=== PATIENT | female | born 1935 | race Hispanic/Latino ===

== ENCOUNTER 2016-12-09 15:31 | Inpatient (IN) | payer MEDICARE, OTHER ==
[2016-12-09 15:32] VITALS: BMI 22.3
[2016-12-09] MEDS ORDERED: Sodium Chloride 0.9% 1,000 ML IV STA (16:28)
--- NOTE | 2016-12-09 16:34 | ED PDOC ---
HPI: General Adult Time Seen by Provider: 12/09/16 15:35 Chief Complaint (Nursing): Abdominal Pain Chief Complaint (Provider): Cough/Congestion History Per: Family (Patient's daughter) History/Exam Limitations: no limitations Onset/Duration Of Symptoms: Days (x1) Current Symptoms Are (Timing): Still Present Additional Complaint(s): Sarah Hussein is a 81 year old female with a history of CAD, DM, COPD, CVA, anemia, bipolar disorder, and dementia and is accompanied by her daughter that presents to the ED with a chief complaint of cough, congestion, and abdominal pain that she has been experiencing for the past day. According to her daughter , the patient has been more lethargic today than usual. Patient also comes in with indwelling ricketts, urine is dark and cloudy. pt is awake. Of Note: Patient is DNR. Past Medical History Reviewed: Historical Data, Nursing Documentation, Vital Signs Vital Signs: Last Vital Signs Temp 98.8 F 12/09/16 18:20 Pulse 126 H 12/09/16 18:24 Resp 26 H 12/09/16 17:24 BP 91/53 L 12/09/16 18:24 Pulse Ox 95 12/09/16 18:24 - Medical History PMH: Anemia, Back Problems (Chronic low back pain), Bipolar Disorder, Bronchitis , CAD, COPD, CVA, Depression (See subjective), Diabetes (type II), Fractures ( See HPI right intertrochanteric femoral fracture), Gastritis, HTN, Hypercholesterolemia, Hyperthyroidism, Pneumonia (HAP), Rheumatoid Arthritis Denies: Arthritis, CHF, Hepatitis, HIV, Hypothyroidism, Chronic Kidney Disease, Seizures, Sexually Transmitted Disease - Surgical History Surgical History: Appendectomy, CABG, Coronary Stent, Tonsillectomy - Family History Family History: States: Unknown Family Hx - Social History Ex-Smoker (has not smoked in the last 12 months): Yes Alcohol: None Drugs: Denies - Home Medications Home Medications: Ambulatory Orders Medication Instructions Recorded Lisinopril [Zestril] 2.5 mg PO DAILY #0 tab 05/05/16 Multivitamin [Multi-Vitamin Daily] 1 tab PO DAILY #0 tablet 05/05/16 Pantoprazole [Protonix EC Tab] 40 mg PO DAILY #0 ect 05/05/16 SITagliptin [Januvia] 100 mg PO DAILY #0 tab 05/05/16 Tolterodine [Detrol] 1 mg PO BID #0 tab 05/05/16 Atorvastatin [Lipitor] 20 mg PO HS 12/09/16 Ferrous Sulfate [Feosol] 325 mg PO BID 12/09/16 Insulin Detemir [Levemir] 2 units SC QAM 12/09/16 Sucralfate [Carafate Oral Susp] 10 ml PO QID 12/09/16 - Allergies Allergies/Adverse Reactions: Allergies Allergy/AdvReac Type Severity Reaction Status Date / Time No Known Allergies Allergy Verified 04/27/16 16:30 Review of Systems Constitutional: Positive for: Other (Patient is lethargic) ENT: Positive for: Nose Congestion Respiratory: Positive for: Cough Gastrointestinal: Positive for: Abdominal Pain Genitourinary Female: Positive for: Other (urine is dark and cloudy) Physical Exam - Reviewed Nursing Documentation Reviewed: Yes Vital Signs Reviewed: Yes - Physical Exam Appears: Positive for: Non-toxic, In Acute Distress (Patient has dementia, and is currently incoherent. Patient appears thin.) Head Exam: Positive for: ATRAUMATIC, NORMOCEPHALIC Skin: Positive for: Normal Color, Warm Cardiovascular/Chest: Positive for: Regular Rate, Rhythm. Negative for: Murmur Respiratory: Positive for: Crackles (r side). Negative for: Wheezing Gastrointestinal/Abdominal: Positive for: Soft. Negative for: Normal Exam ( umbilical hernia, it is reducable.), Tenderness Extremity: Positive for: Other (bilateral sacral ulcers stage 1) Neurologic/Psych: Positive for: Alert, Oriented (Patient is oriented x1). Negative for: Motor/Sensory Deficits - Laboratory Results Result Diagrams: 12/09/16 16:35 12/09/16 16:35 - ECG O2 Sat by Pulse Oximetry: 93 (RA) Pulse Ox Interpretation: Normal - Radiology X-Ray: Read By Radiologist X-Ray Interpretation: Infiltrates - Critical Care Total Time (In Min): 30 Medical Decision Making Medical Decision Making: Impression: fever, possible pneumonia vs uti Possible Sepsis Plan: * VBG Shock Panel * CMP * CBC * EKG * Urinalysis * Urine Culture * Urine C&S * Flu Swab * Chest X-Ray * Tylenol 650 mg PO * Sodium Chloride 1000 mL at 150 mLs/hr * Ricketts Catheter * Nebulizer Treatment * Reevaluation EKG shows sinus tachycardia at 125, no ST elevation. 1700 Chest x-ray reviewed, appears to be right lower lobe pneumonia. Ordered antibiotics and ivf. Dr. Bernstein patients pmd is at bedside. 1710 Code sepsis called. 1729 Labs reviewed and indicate lactate levels of 4.4 pts family (daughter) at bedside, explained ot her the medical condition of her mother and plan. she is agreeable. 2 units prbc also ordered DX fever, sepsis, pneumonia icu attending Dr Hardy aware ID aware Dr Jurado pulmonary aware Scribe Attestation: Documented by Omaira Mckay and Karla Stern, acting as a scribe for Merlin Puente MD. Provider Scribe Attestation: All medical record entries made by the Scribe were at my direction and personally dictated by me. I have reviewed the chart and agree that the record accurately reflects my personal performance of the history, physical exam, medical decision making, and the department course for this patient. I have also personally directed, reviewed, and agree with the discharge instructions and disposition. Disposition - Clinical Impression Clinical Impression: Sepsis, Pneumonia - Patient ED Disposition Is Patient to be Admitted: Yes Counseled Patient/Family Regarding: Studies Performed, Diagnosis - Disposition Disposition Time: 17:00 Condition: GUARDED
[2016-12-09 16:47] LABS: BASO # 0.1 K/uL (0.0-0.2); BASO % 0.2 % (0.0-2.0); HEMOGLOBIN 7.6 g/dL (12.0-16.0); LYMPH # 0.3 K/uL (1.0-4.3); LYMPH % 1.1 % (20.0-40.0); MEAN CELL VOLUME 82.2 fl (81.0-99.0); MEAN CORPUSCULAR HEMOGLOBIN 25.5 pg (27.0-31.0); MEAN CORPUSCULAR HGB CONC 31.1 g/dL (33.0-37.0); MEAN PLATELET VOLUME 7.6 fl (7.2-11.7); MONO # 0.9 K/uL (0.0-0.8); MONO % 3.1 % (0.0-10.0); NEUT # 28.3 K/uL (1.8-7.0); NEUT % 95.6 % (50.0-75.0); PLATELET COUNT 438 K/uL (130-400); RBC 2.97 Mil/uL (3.80-5.20); RED CELL DISTRIBUTION WIDTH 16.3 % (11.5-14.5); WHITE BLOOD COUNT 29.7 K/uL (4.8-10.8)
[2016-12-09] MEDS ORDERED: Albuterol 0.083% Inhal Sol (2.5 mg/3 mL) UD INH ONE ×3 (16:51→17:35)
[2016-12-09] MEDS ORDERED: Albuterol 0.083% Inhal Sol (2.5 mg/3 mL) UD ONE (16:52)
[2016-12-09] MEDS ORDERED: Azithromycin 500 MG in Sodium Chloride 0.9% 250 ML IVPB ONE (16:55)
[2016-12-09 16:57] LABS: ALB/GLOB RATIO 0.9 (1.0-2.1); ALT/SGPT 26 U/L (9-52); AST/SGOT 19 U/L (14-36); BLOOD UREA NITROGEN 36 mg/dl (7-17); CALCIUM 8.7 mg/dL (8.4-10.2); GFR AFRICAN-AMERICAN > 60; GFR NON-AFRICAN AMERICAN > 60
[2016-12-09] MEDS ORDERED: cefTRIAXone (Rocephin) 1 gm Inj ONE (17:03)
--- NOTE | 2016-12-09 17:20 | RAD ---
HISTORY: Cough. COMPARISON: 04/28/2016 FINDINGS: LUNGS: Right lower lobe infiltrate accentuated by rotation, portable technique. PLEURA: No significant pleural effusion identified, no pneumothorax apparent. CARDIOVASCULAR: No radiographic findings to suggest acute or significant cardiovascular disease. OSSEOUS STRUCTURES: No significant abnormalities. VISUALIZED UPPER ABDOMEN: Normal. OTHER FINDINGS: None. IMPRESSION: Right lower lobe infiltrate suspicious for pneumonia.
[2016-12-09 17:28] LABS: VENOUS BLOOD GAS BASE EXCESS 3.2 mmol/L (0.0-2.0); VENOUS BLOOD GAS PCO2 37 mmHg (40-60); VENOUS BLOOD GAS PO2 23 mm/Hg (30-55); VENOUS BLOOD PH 7.47 (7.32-7.43)
[2016-12-09] MEDS ORDERED: Albuterol-Ipratrop 3 mg / 0.5 (3 ml) UD ONE (17:36)
--- NOTE | 2016-12-09 17:42 | CP.PCM.HP ---
History of Present Illness - History of Present Illness History of Present Illness: 81 year old gentlewoman with a long hx of copd, requiring 2L/min of nasal oxygen during sleep and sometimes daytimes, was in her usual state of health 2 days ago - bedbound, non-ambulatory, and with mild dementia. When the nurse came to her home to do wound care (see below) he noted fever, dyspnea and cough prductive of greenish sputum and mild-moderate confustion. She was transported to the ER via ambulance where it was noted that her temp was 102 deg F, pulse 120, BP 70/40, and oxygen saturation 92% on 2L/min oxygen. A chest xray revealed RML pneumonia. Other Significant Past Hx: COPD - Dr. Aline Cronin is pulmonolgist S/P CAD, s/p stenting, -- Dr. Garfield Mosquera is solar systems designer. 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 Medications: Lisinopril 2.5 mg daily FeSO4 325mg i bid (just started 12/08/16) Pantoprazole 40mg i qd Atorvastatin 20mg i qd Januvia 100mg i qd Tolterodine 1mg i bid One a Day Proactive 65 + vitamin (contains 500mg calcium & 1200 units Vit D) one daily Allergies: None known Social: Lives with 1 son, who provides personal care. Daughter and other son also share in care. of lung cancer within past 6 mos. Advance Directive: Written -- Do not intubate and Do not resuscitate. Her children are in agreement with this, but want everything done short of this. ROS - Denies headache, chest pain, abdominal pain. No hx of bleeding or melena. Present on Admission - Present on Admission Any Indicators Present on Admission: Yes History of Uncontrolled Diabetes: Yes Urinary Catheter: Yes Decubitus Ulcer Present: Yes Decubitus Ulcer Location: both heels and posterior right lower leg Decubitus Ulcer Stage: Unstageable Review of Systems - Review of Systems Systems not reviewed;Unavailable: Unstable Vital Signs, Respiratory Distress, Altered Mental Status Review of Systems: OTHERWISE SEE HPI Past Patient History - Infectious Disease Hx of Infectious Diseases: None - Past Medical History & Family History Past Medical History?: Yes - Past Social History Alcohol: None Drugs: Denies - CARDIAC Hx Cardiac Disorders: Yes (S/P STENTING CORONARIES. S/P MV REPLACEMENT) Hx Congestive Heart Failure: No Hx Hypercholesterolemia: Yes Hx Hypertension: Yes Hx Peripheral Vascular Disease: Yes - PULMONARY Hx Bronchitis: Yes Hx Chronic Obstructive Pulmonary Disease (COPD): Yes (SEE HPI) Hx Pneumonia: Yes (HAP) - NEUROLOGICAL HX Cerebrovascular Accident: Yes (CEREBELLAR) Hx Seizures: No - HEENT Hx HEENT Problems: No - RENAL Hx Chronic Kidney Disease: No - ENDOCRINE/METABOLIC Hx Diabetes Mellitus Type 2: Yes Hx Hyperthyroidism: Yes Hx Hypothyroidism: No - HEMATOLOGICAL/ONCOLOGICAL Hx Anemia: Yes Hx Human Immunodeficiency Virus (HIV): No - INTEGUMENTARY Hx Dermatological Problems: Yes (SEE HPI) - MUSCULOSKELETAL/RHEUMATOLOGICAL Hx Arthritis: No Hx Fractures: Yes (See HPI right intertrochanteric femoral fracture) Hx Osteoporosis: Yes Hx Rheumatoid Arthritis: Yes Hx Unsteady Gait: Yes - GASTROINTESTINAL Hx Gastritis: Yes (HEMORRHAGE DUE TO NSAIDS) - GENITOURINARY/GYNECOLOGICAL Hx Sexually Transmitted Disorders: No Other/Comment: URINARY RETENTION - NEEDS GARCIA - PSYCHIATRIC Hx Depression: Yes (See subjective) - SURGICAL HISTORY Hx Appendectomy: Yes Hx Coronary Artery Bypass Graft: Yes Hx Coronary Stent: Yes Hx Orthopedic Surgery: Yes (THR RIGHT HIP 2016) Hx Tonsillectomy: Yes - ANESTHESIA Hx Anesthesia: Yes Hx Anesthesia Reactions: No Hx Malignant Hyperthermia: No Meds Allergies/Adverse Reactions: Allergies Allergy/AdvReac Type Severity Reaction Status Date / Time No Known Allergies Allergy Verified 04/27/16 16:30 Physical Exam - Constitutional Appears: Toxic, In Acute Distress, Confused, Cachectic, Chronically Ill - Head Exam Head Exam: NORMAL INSPECTION - Eye Exam Eye Exam: Normal appearance - ENT Exam ENT Exam: Mucous Membranes Moist - Neck Exam Neck exam: Positive for: Normal Inspection - Respiratory Exam Additional comments: Markedly decreased breath sounds right base and right middle lung. Inspiratory ronchi right base. Inspiratory crackles left base. Upper hdz clear but with diminished breath sounds. - Cardiovascular Exam Cardiovascular Exam: REGULAR RHYTHM, +S1, +S2 Additional comments: Unable to appreciate murmur. Well healed sternotomy scar. - GI/Abdominal Exam GI & Abdominal Exam: Normal Bowel Sounds, Soft - Rectal Exam Rectal Exam: Deferred - Exam Additional comments: Garcia in place. - Extremities Exam Additional comments: WHSS right hip but very painful on motion. No edema, weak pedal pulses. SEE SKIN - Back Exam Additional comments: Spinal deformities. - Neurological Exam Neurological exam: Altered Additional comments: Awake, mildly confused, able to follow simple commands. Non-ambulatory. - Psychiatric Exam Psychiatric exam: Depressed - Skin Additional comments: Extensive necrosis of right and left heals and linear necrosis of right posterior lower leg. Erythematous patches lumbosacral areas. - Additional Findings Additional findings: BREASTS - NO MASSES. Results - Vital Signs Recent Vital Signs: Last Vital Signs Temp 98.8 F 12/09/16 17:32 Pulse 123 H 12/09/16 17:24 Resp 26 H 12/09/16 17:24 BP 81/32 L 12/09/16 17:24 Pulse Ox 89 L 12/09/16 17:24 - Labs Result Diagrams: 12/09/16 16:35 12/09/16 16:35 Labs: Laboratory Results - last 24 hr 12/09/16 17:20 pO2 23 L VBG pH 7.47 H VBG pCO2 37 L VBG HCO3 26.0 VBG Total CO2 28.0 VBG O2 Sat (Calc) 44.9 VBG Base Excess 3.2 H Sodium 185.0 H* Chloride 120.0 H Glucose 226 H Lactate 4.4 H* FiO2 21.0 Crit Value Called To Dr radha nichols Crit Value Called By 162 Crit Value Read Back Y Blood Gas Notified Time 1725 - EKG Data EKG Interpreted by: Myself EKG shows normal: Sinus rhythm Rate: Tachycardia - EKG Data EKG comments: Old anterior wall infarct. - Imaging and Cardiology Chest x-ray Additional comment: RML pneumonia Assessment & Plan (1) SIRS (systemic inflammatory response syndrome) Assessment and Plan: Sepsis protocol to be followed (see orders) to include blood, urine, sputum cultures and start patient on iv Zosyn and Vancomycin - pending ID consultation by Dr. Romano. Status: Acute (2) Pneumonia Assessment and Plan: Pulmonary consultation Dr. Jurado. Will give oxygen, albuterol aerosol txs, and antibiotics as per above. Status: Acute (3) CAD (coronary artery disease) Assessment and Plan: Consultation Dr. Garfield Mosquera. He reviewed electrocardiogram and sees no new changes. Will give Fluids and bp support. Status: Chronic Priority: Medium (4) Anemia Assessment and Plan: Multifactorial. Must transfuse 2 units rbc's. Will not give any anticoagulants because bleed at this time would be catastrophic. Status: Acute Priority: Medium (5) Swelling of left knee joint Status: Acute (6) Diabetes mellitus Assessment and Plan: Will hold [employer] and put on low coverage. Status: Chronic Priority: Medium (7) Status post total hip replacement, right Assessment and Plan: Once stable will look into this because of persistent pain. Status: Acute Onset Date: 04/15/16 (8) Decubitus skin ulcer Assessment and Plan: Both heels and right posterior leg. Will get wound care consultation. Status: Acute (9) Neurogenic bladder Status: Chronic (10) Neurogenic bladder, flaccid Assessment and Plan: Needs indwelling Garcia catheter. Check urine culture. Status: Chronic Priority: Medium (11) CVA, old, ataxia Assessment and Plan: With chronic depression as a result. Anti-depressants have not worked, and family is anti-Rx for this. Status: Chronic - Assessment and Plan (Free Text) Assessment: ADMIT TO ICU - ORDERS TO BE WRITTEN. DISCUSSED WITH DR. SCHMIDT, POWER NUT RUNNER OPERATOR.
[2016-12-09 17:53] LABS: MAGNESIUM 1.9 MG/DL (1.6-2.3)
[2016-12-09 17:57] LABS: INR 1.2 (0.9-1.2); PARTIAL THROMBOPLASTIN TIME 29.4 Seconds (25.6-37.1)
--- NOTE | 2016-12-09 18:12 | CP.CCUPN ---
CCU Subjective - Physician Review Subjective (Free Text): Discussed with PMD: Consult for ICU admission and Code Sepsis eval- discussed with PMD- Code Sepsis called 2 hours post- initial triage in ER: 81F, family advised by PMD to come to ER from Home for eval of fevers after visiting Nurse reported patient to be coughing with purulent sputum and c/o abdominal pain. Family reports altered behavior and mental status with periods of lethargy, and with patient yelling and being uncooperative. No distress noted , in ER found to be febrile to 102.2F, and hypotensive with BP 83/35, HR 127; SPO2 89-93% ER orders noted for infusion of 2.7 L saline followed by NSS at 150 ml/hr, Rocephin and Azithromycin, Tylenol, and Albuterol nebs x 3. WBC 29.7K , Hgb 7.6, BUN/Cr= 36/0.9, and no Lactate visible in [employer] but verbally reported to me as 4.4 by Nurse. PMD reports PMH of COPD, DM II, on home oxygen at 2 LPM, h/o cardiac stenting and mitral valve repair, Dementia, chronic in-dwelling Zhang due to urinary retention, pressure ulcer on sacrum and bilat heels. She is home-bound and non- ambulatory. Allergies: NKDA Home Meds: Levemir, Lisinopril, Lipitor, MVIs, Protonix, Januvia, Carafate, Detrol. ROS: as above, unable to obtain any reliable further info from demented patient. Other PMSFH: As above, including former smoker, CVA with residual Ataxia, UGI Bleed, R hip frx and repair. All recent nursing and physician documentation reviewed and no new information noted relevant to current problems. CCU Objective - Vital Signs / Intake & Output Vital Signs (Last 4 hours): Vital Signs Temp Pulse Resp BP Pulse Ox 12/09/16 17:33 123 H 94/39 L 12/09/16 17:32 93 L 12/09/16 17:32 98.8 F 12/09/16 17:24 123 H 26 H 81/32 L 89 L - Physical Exam Narrative Physical Exam (Free Text): Frail and malnourished elderly appearing female in NAD. Lying in bed with eyes closed, in semi- position. Physical Exam Limitations: Positive for: Altered Mental Status Pupils: Positive for: PERRL Extroacular Muscles: Positive for: EOMI Conjunctiva: Positive for: Normal. Negative for: Icteric Ears: Positive for: Normal Mouth: Positive for: Moist Mucous Membranes. Negative for: Drooling Pharnyx: Positive for: Normal. Negative for: EXUDATE Neck: Negative for: Meningeal Signs, JVD Respiratory/Chest: Positive for: Decreased Breath Sounds. Negative for: Accessory Muscle Use, Wheezes Cardiovascular: Positive for: Regular Rate and Rhythm, Tachycardic Abdomen: Positive for: Normal Bowel Sounds. Negative for: Tenderness, Distention Lower Extremity: Positive for: Other (bilateral heel ulcer dressings intact and not removed as per PMD. ). Negative for: CALF TENDERNESS, Cyanosis Neurological: Positive for: GCS=15, Motor Func Grossly Intact. Negative for: Normal Cerebellar Funct Skin: Positive for: Warm. Negative for: Rashes - Medications Active Medications: Active Medications Generic Name Dose Route Start Last Admin Trade Name Freq PRN Reason Stop Dose Admin Sodium Chloride 1,000 mls @ 150 mls/hr 12/09/16 16:28 12/09/16 16:15 Sodium Chloride 0.9% IV 12/09/16 23:07 150 mls/hr .[id number] STA Administration - Patient Studies Lab Studies: Lab Studies 12/09/16 12/09/16 12/09/16 Range/Units 17:25 17:22 17:20 PT (9.8-13.1) Seconds INR (0.9-1.2) APTT (25.6-37.1) Seconds pO2 23 L (30-55) mm/Hg VBG pH 7.47 H (7.32-7.43) VBG pCO2 37 L (40-60) mmHg VBG HCO3 26.0 mmol/L VBG Total CO2 28.0 (22-28) mmol/L VBG O2 Sat (Calc) 44.9 (40-65) % VBG Base Excess 3.2 H (0.0-2.0) mmol/L Sodium 185.0 H* (132-148) mmol/L Chloride 120.0 H (98-107) mmol/L Glucose 226 H (65-105) mg/dL Lactate 4.4 H* (0.7-2.1) mmol/L FiO2 21.0 % Crit Value Called To Dr radha nichols Crit Value Called By 162 Crit Value Read Back Y Blood Gas Notified Time 1725 Phosphorus 2.9 (2.5-4.5) mg/dl Magnesium 1.9 (1.6-2.3) MG/DL BBK History Checked Patient has bt 12/09/16 Range/Units 17:15 PT 14.0 H (9.8-13.1) Seconds INR 1.2 (0.9-1.2) APTT 29.4 (25.6-37.1) Seconds pO2 (30-55) mm/Hg VBG pH (7.32-7.43) VBG pCO2 (40-60) mmHg VBG HCO3 mmol/L VBG Total CO2 (22-28) mmol/L VBG O2 Sat (Calc) (40-65) % VBG Base Excess (0.0-2.0) mmol/L Sodium (132-148) mmol/L Chloride (98-107) mmol/L Glucose (65-105) mg/dL Lactate (0.7-2.1) mmol/L FiO2 % Crit Value Called To Crit Value Called By Crit Value Read Back Blood Gas Notified Time Phosphorus (2.5-4.5) mg/dl Magnesium (1.6-2.3) MG/DL BBK History Checked Laboratory Results - last 24 hr 12/09/16 12/09/16 12/09/16 17:15 17:20 17:22 PT 14.0 H INR 1.2 APTT 29.4 pO2 23 L VBG pH 7.47 H VBG pCO2 37 L VBG HCO3 26.0 VBG Total CO2 28.0 VBG O2 Sat (Calc) 44.9 VBG Base Excess 3.2 H Sodium 185.0 H* Chloride 120.0 H Glucose 226 H Lactate 4.4 H* FiO2 21.0 Crit Value Called To Dr radha nichols Crit Value Called By 162 Crit Value Read Back Y Blood Gas Notified Time 1725 Phosphorus 2.9 Magnesium 1.9 BBK History Checked 12/09/16 17:25 PT INR APTT pO2 VBG pH VBG pCO2 VBG HCO3 VBG Total CO2 VBG O2 Sat (Calc) VBG Base Excess Sodium Chloride Glucose Lactate FiO2 Crit Value Called To Crit Value Called By Crit Value Read Back Blood Gas Notified Time Phosphorus Magnesium BBK History Checked Patient has bt Radiology Interpretations (Free Text): CXR: ( my interp)- very rotated and hypoexpanded film, perihilar- right worse than left interstitial changes, elevated left hemidiaphragm. EKG/Cardiology Interpretations (Free Text): EKG: (my interp) sinus tachy 125/min, old IWMI and poor R wave progression anteriorly. Fingerstick Blood Sugar Results: 281 Critical Care Progress Note - Extremities/Vascular Does the Patient have a Central Venous Catheter?: No Does the Patient need a Central Venous Catheter?: No Does the Patient have a Zhang Catheter?: No Does the Patient need a Zhang Catheter?: Yes Catheter Insertion Criteria: Patient has acute urinary retention or bladder outlet obstruction - Prophylaxis GI Prophylaxis GI: PPI - Prophylaxis DVT Prophylaxis DVT: Lovenox Assessment/Plan - Assessment and Plan (Free Text) Assessment: MAJOR PROBLEMS: 1. AMS 2 Septic Encephalopathy 2. Acute Resp insuff 2 Bacterial Pneumonitis, r/o Aspiration pneumonia 3. Severe Sepsis 2 Pneumonia and UTI 4. Hypotension 2 Hypovolemia and Anemia 5. Acute on Chronic Anemia 6. Dehydration Plan: PLAN: 1. IVF bolus and hydration. 2. Panculture; blood, sputum, urine. Empiric Abx coverage with Zosyn / Vanco , unless otherwise as directed by SELINA dickerson to be called by PMD. Consider changing Zhang catheter. 3. Serial Lactates until normalized. Would also get serial Trops. 4. Consider 2 units PRBCs now. Expect Hgb to decrease further after IVF re- hydration. Check stools for occult blood 5. Consider CT Brain; CT Abd Pelvis. 6. Does not appear to need assisted breathing support for now, start Duonebs, Hold on steroids, no wheezing apparent now. 7. Advised by PMD that patient is DNR DNI. 8. Maintain normoglycemia, continue Protonix, start Lovenox. Hold Home meds that include Lisinopril and Detrol.
[2016-12-09] MEDS ORDERED: levoFLOXacin 750 mg in D5W 150 ML BAG IVPB SCH (18:16)
[2016-12-09 18:23] LABS: BANDS 5 % (0-2); LYMPHOCYTE 1 % (20-50); MONOCYTE 4 % (0-10); NEUTROPHIL 90 % (42-75); TOTAL CELLS COUNTED 100
[2016-12-09 18:24] LABS: ANISOCYTOSIS SLIGHT; BURR CELLS SLIGHT; GIANT PLATELETS PRESENT; LARGE PLATELETS PRESENT; OVALOCYTES SLIGHT; PLATELET ESTIMATE SLIGHTLY INCREASED (NORMAL); POIKILOCYTOSIS SLIGHT
[2016-12-09] MEDS ORDERED: Sodium Chloride 0.9% 500 ML IV ONE (20:00)
--- NOTE | 2016-12-09 20:31 | CP.PCM.CON ---
History of Present Illness - History of Present Illness History of Present Illness: Infectious Disease Consultation Note- asked to see this patient at the request of HPI- Most of the history obtained from pt's daughter and son who are at her bedside in ICU and also . Pt. is a 81 year old female with significant PMH including COPD, CAD s/p stent and MVR, right hip surgery 03/2016, DM II, erosive gastritis, , non-healing heel wounds b/l who was is bedbound and was apparently in her usual states of health and the home nurse who came to her house to do her wound care noticed that pt.l was very congested and coughing with green phlegm and pt. was found to be febrile and hence pt. was brought to ED for further evaluation and treatment in the ED she was found to be febrile and cxr revealed RML pneumonia. as per pt's family she had right hip surgery in 03/2016 and did very well with the surgery but she went to rehab after that and she was not mobile and she developed b/l heel ulcers and [facility] house and applies medihoney and have become black in the past few weeks with malodor. asper pt's daughter she is also developing small sore on her mid back and sacral egion. Pt. herself is awake and resting in bed and she denies any fever or chills, she coughs but denies any sob, she does c/o pain in her feet. 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 denies any fever or chills but was found to be febrile at home and in ED, + cough with green phlegm as per pt's family , she denies any sob , denies any chest pain, denies any abd. pain, denies any diarrhea, has indwelling catheter as per pt's daughter gets replaced with new one once a month nonhealing heel wounds , necrotic Past Patient History - Infectious Disease Hx of Infectious Diseases: None - Past Medical History & Family History Past Medical History?: Yes - Past Social History Alcohol: None Drugs: Denies - CARDIAC Hx Cardiac Disorders: Yes (S/P STENTING CORONARIES. S/P MV REPLACEMENT) Hx Congestive Heart Failure: No Hx Hypercholesterolemia: Yes Hx Hypertension: Yes Hx Peripheral Vascular Disease: Yes - PULMONARY Hx Bronchitis: Yes Hx Chronic Obstructive Pulmonary Disease (COPD): Yes (SEE HPI) Hx Pneumonia: Yes (HAP) - NEUROLOGICAL HX Cerebrovascular Accident: Yes (CEREBELLAR) Hx Seizures: No - HEENT Hx HEENT Problems: No - RENAL Hx Chronic Kidney Disease: No - ENDOCRINE/METABOLIC Hx Diabetes Mellitus Type 2: Yes Hx Hyperthyroidism: Yes Hx Hypothyroidism: No - HEMATOLOGICAL/ONCOLOGICAL Hx Anemia: Yes - INTEGUMENTARY Hx Dermatological Problems: Yes (SEE HPI) - MUSCULOSKELETAL/RHEUMATOLOGICAL Hx Arthritis: No Hx Fractures: Yes (See HPI right intertrochanteric femoral fracture) Hx Osteoporosis: Yes Hx Rheumatoid Arthritis: Yes Hx Unsteady Gait: Yes - GASTROINTESTINAL Hx Gastritis: Yes (HEMORRHAGE DUE TO NSAIDS) - GENITOURINARY/GYNECOLOGICAL Hx Sexually Transmitted Disorders: No Other/Comment: URINARY RETENTION - NEEDS GARCIA - PSYCHIATRIC Hx Depression: Yes (See subjective) - SURGICAL HISTORY Hx Appendectomy: Yes Hx Coronary Artery Bypass Graft: Yes Hx Coronary Stent: Yes Hx Orthopedic Surgery: Yes (THR RIGHT HIP 2016) Hx Tonsillectomy: Yes - ANESTHESIA Hx Anesthesia: Yes Hx Anesthesia Reactions: No Hx Malignant Hyperthermia: No Meds Allergies/Adverse Reactions: Allergies Allergy/AdvReac Type Severity Reaction Status Date / Time No Known Allergies Allergy Verified 04/27/16 16:30 - Medications Medications: Current Medications Albuterol/Ipratropium (Duoneb 3 Mg/0.5 Mg (3 Ml) Ud) 3 ml INH RQID ASHANTI Sodium Chloride (Sodium Chloride 0.9%) 1,000 mls @ 150 mls/hr IV .Q6H40M STA Stop: 12/09/16 23:07 Last Admin: 12/09/16 16:15 Dose: 150 mls/hr Vancomycin HCl 750 mg/ Sodium (Chloride) 250 mls @ 166.667 mls/hr IVPB Q12 ASHANTI Piperacillin Sod/Tazobactam (Sod 3.375 gm/ Sodium Chloride) 100 mls @ 100 mls/ hr IVPB Q6 [facility] Levofloxacin/Dextrose (Levaquin 750mg) 750 mg in 150 mls @ 100 mls/hr IVPB DAILY [facility] Ibuprofen (Motrin Oral Susp) 400 mg PO Q6 PRN PRN Reason: Fever >100.4 F Insulin Human Regular (Humulin R) 0 units SC ACCU-CHECK ASHANTI PRN Reason: Protocol Pantoprazole Sodium (Protonix Ec Tab) 40 mg PO DAILY ASHANTI Physical Exam - Constitutional Appears: Cachectic, Chronically Ill - Head Exam Head Exam: ATRAUMATIC - Eye Exam Eye Exam: EOMI, PERRL - ENT Exam Additional comments: dry oral mucosa - Respiratory Exam Respiratory Exam: NORMAL BREATHING PATTERN Additional comments: decreasd breath sounds bibasilar, no wheezing - Cardiovascular Exam Cardiovascular Exam: RRR, +S1, +S2 - GI/Abdominal Exam GI & Abdominal Exam: Normal Bowel Sounds, Soft Additional comments: NT, ND - Extremities Exam Additional comments: no edema b/l LE b/l heels with necrotic black escahr right heek worse than the left and she also has nonhealing dry open wound from above her right heel extending to mid- calf region posteriorly, no active discharge, bone visualized. malodor at the heel region her right hip surgical site is clean and well healed, no erythema - Neurological Exam Neurological exam: Alert Additional comments: oriented x 2 - Skin Additional comments: mid back with small round erythema and opening withour marquise discharge and mid sacral region with very small opening stage 1 ulcer, scant yellow discharge Results - Vital Signs Recent Vital Signs: Last Vital Signs Temp 98.8 F 12/09/16 18:20 Pulse 126 H 12/09/16 18:24 Resp 26 H 12/09/16 17:24 BP 91/53 L 12/09/16 18:24 Pulse Ox 95 12/09/16 18:24 - Labs Result Diagrams: 12/09/16 16:35 12/09/16 16:35 Labs: Laboratory Results - last 24 hr 12/09/16 12/09/16 12/09/16 17:15 17:20 17:22 PT 14.0 H INR 1.2 APTT 29.4 pO2 23 L VBG pH 7.47 H VBG pCO2 37 L VBG HCO3 26.0 VBG Total CO2 28.0 VBG O2 Sat (Calc) 44.9 VBG Base Excess 3.2 H Sodium 185.0 H* Chloride 120.0 H Glucose 226 H Lactate 4.4 H* FiO2 21.0 Crit Value Called To Dr radha nichols Crit Value Called By 162 Crit Value Read Back Y Blood Gas Notified Time 1725 Phosphorus 2.9 Magnesium 1.9 Blood Type Antibody Screen Crossmatch BBK History Checked 12/09/16 17:25 PT INR APTT pO2 VBG pH VBG pCO2 VBG HCO3 VBG Total CO2 VBG O2 Sat (Calc) VBG Base Excess Sodium Chloride Glucose Lactate FiO2 Crit Value Called To Crit Value Called By Crit Value Read Back Blood Gas Notified Time Phosphorus Magnesium Blood Type O POSITIVE Antibody Screen Negative Crossmatch See Detail BBK History Checked Patient has bt Laboratory Results - last 72 hr 12/09/16 12/09/16 12/09/16 16:35 16:35 16:35 WBC 29.7 H D RBC 2.97 L Hgb 7.6 L D Hct 24.4 L MCV 82.2 D MCH 25.5 L MCHC 31.1 L RDW 16.3 H Plt Count 438 H MPV 7.6 Neut % (Auto) 95.6 H Lymph % (Auto) 1.1 L [place] % (Auto) 3.1 Eos % (Auto) 0.0 Baso % (Auto) 0.2 Neut # 28.3 H Lymph # 0.3 L [place] # 0.9 H Eos # 0.0 Baso # 0.1 Neutrophils % (Manual) 90 H Band Neutrophils % 5 H Lymphocytes % (Manual) 1 L Monocytes % (Manual) 4 Platelet Estimate Slightly increased H Large Platelets Present Giant Platelets Present Poikilocytosis (manual Slight Anisocytosis (manual) Slight Ovalocytes Slight Harish Cells Slight PT INR APTT pO2 VBG pH VBG pCO2 VBG HCO3 VBG Total CO2 VBG O2 Sat (Calc) VBG Base Excess Glucose Lactate FiO2 Crit Value Called To Crit Value Called By Crit Value Read Back Blood Gas Notified Time Sodium 135 Potassium 4.3 Chloride 98 Carbon Dioxide 26 Anion Gap 15 BUN 36 H Creatinine 0.9 Est GFR ( Amer) > 60 Est GFR (Non-Af Amer) > 60 Random Glucose 239 H Calcium 8.7 Phosphorus Magnesium Total Bilirubin 0.7 AST 19 ALT 26 Alkaline Phosphatase 150 H Total Protein 6.4 Albumin 3.0 L Globulin 3.4 Albumin/Globulin Ratio 0.9 L Influenza Typ A,B (EIA) Negative for flu a/b Blood Type Antibody Screen Crossmatch BBK History Checked 12/09/16 12/09/16 12/09/16 17:15 17:20 17:22 WBC RBC Hgb Hct MCV MCH MCHC RDW Plt Count MPV Neut % (Auto) Lymph % (Auto) [place] % (Auto) Eos % (Auto) Baso % (Auto) Neut # Lymph # [place] # Eos # Baso # Neutrophils % (Manual) Band Neutrophils % Lymphocytes % (Manual) Monocytes % (Manual) Platelet Estimate Large Platelets Giant Platelets Poikilocytosis (manual Anisocytosis (manual) Ovalocytes Harish Cells PT 14.0 H INR 1.2 APTT 29.4 pO2 23 L VBG pH 7.47 H VBG pCO2 37 L VBG HCO3 26.0 VBG Total CO2 28.0 VBG O2 Sat (Calc) 44.9 VBG Base Excess 3.2 H Glucose 226 H Lactate 4.4 H* FiO2 21.0 Crit Value Called To Dr radha nichols Crit Value Called By 162 Crit Value Read Back Y Blood Gas Notified Time 1725 Sodium 185.0 H* Potassium Chloride 120.0 H Carbon Dioxide Anion Gap BUN Creatinine Est GFR ( Amer) Est GFR (Non-Af Amer) Random Glucose Calcium Phosphorus 2.9 Magnesium 1.9 Total Bilirubin AST ALT Alkaline Phosphatase Total Protein Albumin Globulin Albumin/Globulin Ratio Influenza Typ A,B (EIA) Blood Type Antibody Screen Crossmatch BBK History Checked 12/09/16 17:25 WBC RBC Hgb Hct MCV MCH MCHC RDW Plt Count MPV Neut % (Auto) Lymph % (Auto) [place] % (Auto) Eos % (Auto) Baso % (Auto) Neut # Lymph # [place] # Eos # Baso # Neutrophils % (Manual) Band Neutrophils % Lymphocytes % (Manual) Monocytes % (Manual) Platelet Estimate Large Platelets Giant Platelets Poikilocytosis (manual Anisocytosis (manual) Ovalocytes Harish Cells PT INR APTT pO2 VBG pH VBG pCO2 VBG HCO3 VBG Total CO2 VBG O2 Sat (Calc) VBG Base Excess Glucose Lactate FiO2 Crit Value Called To Crit Value Called By Crit Value Read Back Blood Gas Notified Time Sodium Potassium Chloride Carbon Dioxide Anion Gap BUN Creatinine Est GFR ( Amer) Est GFR (Non-Af Amer) Random Glucose Calcium Phosphorus Magnesium Total Bilirubin AST ALT Alkaline Phosphatase Total Protein Albumin Globulin Albumin/Globulin Ratio Influenza Typ A,B (EIA) Blood Type O POSITIVE Antibody Screen Negative Crossmatch See Detail BBK History Checked Patient has bt Microbiology 05/03/16 18:04 Urine,Catheterized Urine Culture - Final Yeast Species 04/23/16 16:56 Urine,Garcia Urine Culture - Final No Growth (<1,000 CFU/ML) 04/20/16 16:00 Blood-Venous Blood Culture - Final 04/20/16 16:00 Blood-Venous Gram Stain - Final NO GROWTH AFTER 5 DAYS TEST NOT PERFORMED 04/20/16 15:30 Blood-Venous Blood Culture - Final 04/20/16 15:30 Blood-Venous Gram Stain - Final NO GROWTH AFTER 5 DAYS TEST NOT PERFORMED Accession No. : [id number] Patient Name / ID : OLIVER KENNEDY / [id number] Exam Date : 12/09/2016 16:32:10 ( Approved ) Study Comment : Sex / Age : F / [id number] Creator : Ja Beltran MD Dictator : Ja Beltran MD Database Security Administrator : Commodity Merchant : Ja Beltran MD Approver2 : Report Date : 12/09/2016 17:19:00 My Comment : HISTORY: Cough. COMPARISON: 04/28/2016 FINDINGS: LUNGS: Right lower lobe infiltrate accentuated by rotation, portable technique. PLEURA: No significant pleural effusion identified, no pneumothorax apparent. CARDIOVASCULAR: No radiographic findings to suggest acute or significant cardiovascular disease. OSSEOUS STRUCTURES: No significant abnormalities. VISUALIZED UPPER ABDOMEN: Normal. OTHER FINDINGS: None. IMPRESSION: Right lower lobe infiltrate suspicious for pneumonia. Assessment & Plan (1) Pneumonia Status: Acute (2) SIRS (systemic inflammatory response syndrome) Status: Acute (3) Decubitus skin ulcer Status: Acute (4) COPD (chronic obstructive pulmonary disease) Status: Chronic Priority: Medium (5) Leukocytosis Status: Acute (6) Nonhealing ulcer of heel Status: Acute - Assessment and Plan (Free Text) Assessment: A/P- 81 year old female with multiple medical conditions including CAD s/p MVR and stent, COPD, DM II, nonhealing necrotic heel wounds admitted with fever, leukocytosis found to have RML pneumonia. the etiology of the SIRS and leukocytosis is multifactorial most likely. certainly pneumonia is one of the etiologies. also her necrotic heel ulcers and right calf nonhealing wound with exposed muscle bone underneath is another etiology and certainly OM is highly likely. pt. with most likely severe peripheral vascular disease, however , in light of her underlying medical conditions doubt she will be good surgical candidate for LE . however would highly advise podiatry input. her right hip surgical site is clean and well healed, no erythema. 1. pneumonia 2.nonhealing necrotic heel ulcers and right hel extending to posterior right calf region 3. COPD 4.DM II plan- check blood cx x 2. check UA and urine cx ( garcia was changed in ED today). check sputum cx. advise to place on broad spectrum antibiotics to cover for both gram neg and MRSA coverage not only for her pneumonia but also for her necrotic wounds and most likely OM although with poor PVD and poor circulation abx futility is limited. advise to continue with IV avncomycin adn zosyn day #1. keep vanco trough <15. advise check ESR. check bone scan r/o OM of the heels and right lower leg region. monitor aspiration precautions would also advise to add azithromycin to cover for atypicals. check sputum cx as well. check urine legionella AG. check mycoplasma serology. All above d/w patient and her son and daughter at length, Thank you for allowing me to take part in the care of this patient. ICU time 70 minutes.
[2016-12-09] MEDS: Pantoprazole 40 mg EC Tab PO SCH (22:10)
[2016-12-09] MEDS: Insulin Regular 100 units/ml SC SCH (23:00)
[2016-12-10] MEDS: Piperacillin/Tazobact 3.375 GM in Sodium Chloride 0.9% 100 ML IVPB SCH ×6 (00:55→23:54)
[2016-12-10] MEDS: levoFLOXacin 750 mg in D5W 750 MG/150 ML BAG IVPB SCH ×2 (01:45→10:52)
[2016-12-10] MEDS ORDERED: Albumin Human 5% (12.5 gm/250 ml) IV ONE ×3 (05:09→09:00)
[2016-12-10 05:26] LABS: HEMOGLOBIN 8.6 g/dL (12.0-16.0); LYMPH # 0.5 K/uL (1.0-4.3); LYMPH % 1.9 % (20.0-40.0); MEAN CELL VOLUME 82.9 fl (81.0-99.0); MEAN CORPUSCULAR HEMOGLOBIN 25.9 pg (27.0-31.0); MEAN CORPUSCULAR HGB CONC 31.3 g/dL (33.0-37.0); MEAN PLATELET VOLUME 7.4 fl (7.2-11.7); MONO # 0.5 K/uL (0.0-0.8); MONO % 1.9 % (0.0-10.0); NEUT # 25.5 K/uL (1.8-7.0); NEUT % 96.2 % (50.0-75.0); PLATELET COUNT 321 K/uL (130-400); RBC 3.31 Mil/uL (3.80-5.20); RED CELL DISTRIBUTION WIDTH 16.1 % (11.5-14.5); WHITE BLOOD COUNT 26.5 K/uL (4.8-10.8)
[2016-12-10 05:27] LABS: ALB/GLOB RATIO 0.9 (1.0-2.1); ALBUMIN 2.5 g/dL (3.5-5.0); ALT/SGPT 34 U/L (9-52); AST/SGOT 21 U/L (14-36); BLOOD UREA NITROGEN 39 mg/dl (7-17); GFR AFRICAN-AMERICAN > 60; GFR NON-AFRICAN AMERICAN > 60
[2016-12-10] MEDS: Albuterol-Ipratrop 3 mg / 0.5 (3 ml) UD INH SCH ×4 (07:19→19:15)
[2016-12-10 07:29] LABS: BANDS 8 % (0-2); LYMPHOCYTE 3 % (20-50); MONOCYTE 3 % (0-10); NEUTROPHIL 86 % (42-75); PLATELET ESTIMATE NORMAL (NORMAL); TOTAL CELLS COUNTED 100
[2016-12-10 07:31] LABS: ANISOCYTOSIS SLIGHT; HYPOCHROMIC SLIGHT; SCHISTOCYTES SLIGHT
[2016-12-10] MEDS: Insulin Regular 100 units/ml SC SCH ×4 (08:02→23:29)
[2016-12-10 08:35] LABS: SQUAMOUS EPITHIAL 7 /hpf (0-5); URINE BILIRUBIN SMALL (NEGATIVE); URINE BLOOD NEGATIVE (NEGATIVE); URINE CLARITY CLOUDY (Clear); URINE COLOR AMBER (YELLOW); URINE GLUCOSE (UA) NEG (Normal); URINE LEUKOCYTE ESTERASE MOD Leu/uL (Negative); URINE NITRATE NEGATIVE (NEGATIVE); URINE PROTEIN 100 mg/dL (NEGATIVE); URINE UROBILINOGEN 0.2-1.0 mg/dL (0.2-1.0)
[2016-12-10] MEDS: Pantoprazole 40 mg EC Tab PO SCH (08:39)
[2016-12-10] MEDS ORDERED: Chlorhexidine Gluconate 1 APPL/PKT TP ONE (09:21)
--- NOTE | 2016-12-10 10:03 | CARD ---
APPROVED REPORT EKG Measurement Heart [id number] <Conclusion> Sinus tachycardia Otherwise normal ECG
--- NOTE | 2016-12-10 10:45 | CP.PCM.CON ---
History of Present Illness - History of Present Illness History of Present Illness: This 81-year-old female, long-standing hypertensive and diabetic with a history of coronary artery disease with had an acute inferior wall myocardial infarction followed by coronary bypass graft surgery and mitral valve surgery following multiple hospitalizations for congestive cardiac failure has been repeatedly hospitalized over last 3-4 years. She also has a history of bipolar disorder and is rapidly developing dementia. The patient has been a chronic cigarette smoker and has severe COPD with multiple hospitalizations for acute exacerbations and pneumonia. The patient had hip surgery at the end of last year and subsequently has been mostly bed and chair bound. She has had an indwelling Zhang catheter for neurogenic bladder. She has nonhealing ulcers over both heels. Patient has a history of severe GI bleed requiring transfusions while on Plavix and aspirin in the past. Hence no anticoagulation has been undertaken. The patient was brought to the emergency room after developing a productive cough and fever and chills. In the emergency room she was found to have high levels of lactates with evidence of right middle lobe pneumonia.. At this point she is in intensive care unit, drowsy and easily arousable. She is aware of her surroundings. Afebrile with a pulse rate of 90 bpm regular with a blood pressure of 100/70 mmHg. Her jugular venous pressure was not elevated there was no pedal or sacral edema. Her extremities were slightly cool to touch there was no cyanosis or clubbing. The patient was markedly kyphotic with a respiratory rate of 20 breaths per minute and with oxygen supplement a pulse oximetry of 96%. Her pedal pulses were not palpable and she had mild odorous discharge from ulcers over both heels. There was evidence of pressure changes over sacral area. No actual skin breakdown was detected. The apex was not palpable the first and second heart sounds were normal there was an apical systolic murmur of mitral regurgitation there was no gallop rhythm. There were coarse crepitations over both lung hdz. Abdomen was soft her liver and spleen were not palpable there was no abdominal bruit. Her electro-cardiogram shows sinus tachycardia with poor R-wave progression from V1 to V3. No melvina Q waves were detected. Review of her earlier electrocardiograms do show evidence of an inferior wall myocardial infarction. Her lab data from yesterday demonstrated significant acidosis and elevated lactate levels there was also has azotemia which appears to be improving. The impression at this time is sepsis secondary to pneumonia. Bilateral nonhealing ulcers over heels. COPD with right middle lobe pneumonia stable coronary artery disease with history of inferior wall myocardial infarction, status post coronary bypass graft surgery and mitral valve surgery. Hypertension and diabetes mellitus. Bipolar disorder and dementia. Neurogenic bladder with an indwelling Zhang catheter. The patient has been started on appropriate anti-biotics and IV fluids. Her lab tests show a stable renal status indicating adequate tissue perfusion. From cardiovascular point of view she appears stable at this point. thank you Past Patient History - Infectious Disease Hx of Infectious Diseases: None - Past Medical History & Family History Past Medical History?: Yes - Past Social History Alcohol: None Drugs: Denies - CARDIAC Hx Congestive Heart Failure: No Hx Hypercholesterolemia: Yes Hx Hypertension: Yes - PULMONARY Hx Bronchitis: Yes Hx Chronic Obstructive Pulmonary Disease (COPD): Yes Hx Pneumonia: Yes (HAP) - NEUROLOGICAL Hx Seizures: No - HEENT Hx HEENT Problems: No - RENAL Hx Chronic Kidney Disease: No - ENDOCRINE/METABOLIC Hx Hyperthyroidism: Yes Hx Hypothyroidism: No - HEMATOLOGICAL/ONCOLOGICAL Hx Anemia: Yes Hx Human Immunodeficiency Virus (HIV): No - INTEGUMENTARY Hx Dermatological Problems: Yes (SEE HPI) - MUSCULOSKELETAL/RHEUMATOLOGICAL Hx Arthritis: No Hx Fractures: Yes (See HPI right intertrochanteric femoral fracture) Hx Rheumatoid Arthritis: Yes - GASTROINTESTINAL Hx Gastritis: Yes - GENITOURINARY/GYNECOLOGICAL Hx Sexually Transmitted Disorders: No - PSYCHIATRIC Hx Bipolar Disorder: Yes Hx Depression: Yes (See subjective) - SURGICAL HISTORY Hx Appendectomy: Yes Hx Coronary Artery Bypass Graft: Yes Hx Coronary Stent: Yes Hx Tonsillectomy: Yes - ANESTHESIA Hx Anesthesia: Yes Hx Anesthesia Reactions: No Hx Malignant Hyperthermia: No Meds Allergies/Adverse Reactions: Allergies Allergy/AdvReac Type Severity Reaction Status Date / Time No Known Allergies Allergy Verified 04/27/16 16:30 - Medications Medications: Current Medications Albuterol/Ipratropium (Duoneb 3 Mg/0.5 Mg (3 Ml) Ud) 3 ml INH RQID [facility] Last Admin: 12/10/16 07:19 Dose: 3 ml Vancomycin HCl 750 mg/ Sodium (Chloride) 250 mls @ 166.667 mls/hr IVPB Q12 [facility] Piperacillin Sod/Tazobactam (Sod 3.375 gm/ Sodium Chloride) 100 mls @ 100 mls/ hr IVPB Q6 [facility] Last Admin: 12/10/16 05:32 Dose: 100 mls/hr Levofloxacin/Dextrose (Levaquin 750mg) 750 mg in 150 mls @ 100 mls/hr IVPB DAILY [facility] Last Admin: 12/10/16 01:45 Dose: 100 mls/hr Ibuprofen (Motrin Oral Susp) 400 mg PO Q6 PRN PRN Reason: Fever >100.4 F Insulin Human Regular (Humulin R) 0 units SC ACCU-CHECK ASHANTI PRN Reason: Protocol Last Admin: 12/10/16 08:02 Dose: Not Given Pantoprazole Sodium (Protonix Ec Tab) 40 mg PO DAILY [facility] Last Admin: 12/10/16 08:39 Dose: 40 mg Results - Vital Signs Recent Vital Signs: Last Vital Signs Temp 98.1 F 12/10/16 08:00 Pulse 108 H 12/10/16 08:00 Resp 17 12/10/16 08:00 BP 91/49 L 12/10/16 08:00 Pulse Ox 94 L 12/10/16 08:00 - Labs Result Diagrams: 12/10/16 04:20 12/10/16 04:20 Labs: Laboratory Results - last 24 hr 12/09/16 12/09/16 12/09/16 17:15 17:20 17:22 WBC RBC Hgb Hct MCV MCH MCHC RDW Plt Count MPV Neut % (Auto) Lymph % (Auto) [place] % (Auto) Eos % (Auto) Baso % (Auto) Neut # Lymph # [place] # Eos # Baso # Neutrophils % (Manual) Band Neutrophils % Lymphocytes % (Manual) Monocytes % (Manual) Platelet Estimate Hypochromasia (manual) Anisocytosis (manual) Schistocytes ESR PT 14.0 H INR 1.2 APTT 29.4 pO2 23 L VBG pH 7.47 H VBG pCO2 37 L VBG HCO3 26.0 VBG Total CO2 28.0 VBG O2 Sat (Calc) 44.9 VBG Base Excess 3.2 H Sodium 185.0 H* Chloride 120.0 H Glucose 226 H Lactate 4.4 H* FiO2 21.0 Crit Value Called To Dr radha nichols Crit Value Called By 162 Crit Value Read Back Y Blood Gas Notified Time 1725 Potassium Carbon Dioxide Anion Gap BUN Creatinine Est GFR ( Amer) Est GFR (Non-Af Amer) POC Glucose (mg/dL) Random Glucose Lactic Acid Calcium Phosphorus 2.9 Magnesium 1.9 Total Bilirubin AST ALT Alkaline Phosphatase Troponin I Total Protein Albumin Globulin Albumin/Globulin Ratio Urine Color Urine Clarity Urine pH Ur Specific [place] Urine Protein Urine Glucose (UA) Urine Ketones Urine Blood Urine Nitrate Urine Bilirubin Urine Urobilinogen Ur Leukocyte Esterase Urine Microscopic WBC Ur Squamous Epith Cells Hyaline Casts Urine Yeast (Budding) Blood Type Antibody Screen Crossmatch BBK History Checked 12/09/16 12/09/16 12/09/16 17:25 20:34 20:34 WBC RBC Hgb Hct MCV MCH MCHC RDW Plt Count MPV Neut % (Auto) Lymph % (Auto) [place] % (Auto) Eos % (Auto) Baso % (Auto) Neut # Lymph # [place] # Eos # Baso # Neutrophils % (Manual) Band Neutrophils % Lymphocytes % (Manual) Monocytes % (Manual) Platelet Estimate Hypochromasia (manual) Anisocytosis (manual) Schistocytes ESR PT INR APTT pO2 VBG pH VBG pCO2 VBG HCO3 VBG Total CO2 VBG O2 Sat (Calc) VBG Base Excess Sodium Chloride Glucose Lactate FiO2 Crit Value Called To Crit Value Called By Crit Value Read Back Blood Gas Notified Time Potassium Carbon Dioxide Anion Gap BUN Creatinine Est GFR ( Amer) Est GFR (Non-Af Amer) POC Glucose (mg/dL) Random Glucose Lactic Acid 5.7 H* Calcium Phosphorus Magnesium Total Bilirubin AST ALT Alkaline Phosphatase Troponin I 0.0540 Total Protein Albumin Globulin Albumin/Globulin Ratio Urine Color Urine Clarity Urine pH Ur Specific [place] Urine Protein Urine Glucose (UA) Urine Ketones Urine Blood Urine Nitrate Urine Bilirubin Urine Urobilinogen Ur Leukocyte Esterase Urine Microscopic WBC Ur Squamous Epith Cells Hyaline Casts Urine Yeast (Budding) Blood Type O POSITIVE Antibody Screen Negative Crossmatch See Detail BBK History Checked Patient has bt 12/09/16 12/09/16 12/10/16 21:14 22:56 04:20 WBC 26.5 H RBC 3.31 L Hgb 8.6 L Hct 27.4 L MCV 82.9 MCH 25.9 L MCHC 31.3 L RDW 16.1 H Plt Count 321 D MPV 7.4 Neut % (Auto) 96.2 H Lymph % (Auto) 1.9 L [place] % (Auto) 1.9 Eos % (Auto) 0.0 Baso % (Auto) 0.0 Neut # 25.5 H Lymph # 0.5 L [place] # 0.5 Eos # 0.0 Baso # 0.0 Neutrophils % (Manual) 86 H Band Neutrophils % 8 H Lymphocytes % (Manual) 3 L Monocytes % (Manual) 3 Platelet Estimate Normal Hypochromasia (manual) Slight Anisocytosis (manual) Slight Schistocytes Slight ESR 113 H PT INR APTT pO2 VBG pH VBG pCO2 VBG HCO3 VBG Total CO2 VBG O2 Sat (Calc) VBG Base Excess Sodium Chloride Glucose Lactate FiO2 Crit Value Called To Crit Value Called By Crit Value Read Back Blood Gas Notified Time Potassium Carbon Dioxide Anion Gap BUN Creatinine Est GFR ( Amer) Est GFR (Non-Af Amer) POC Glucose (mg/dL) 270 H Random Glucose Lactic Acid Calcium Phosphorus Magnesium Total Bilirubin AST ALT Alkaline Phosphatase Troponin I Total Protein Albumin Globulin Albumin/Globulin Ratio Urine Color Urine Clarity Urine pH Ur Specific [place] Urine Protein Urine Glucose (UA) Urine Ketones Urine Blood Urine Nitrate Urine Bilirubin Urine Urobilinogen Ur Leukocyte Esterase Urine Microscopic WBC Ur Squamous Epith Cells Hyaline Casts Urine Yeast (Budding) Blood Type Antibody Screen Crossmatch BBK History Checked 12/10/16 12/10/16 12/10/16 04:20 04:20 05:12 WBC RBC Hgb Hct MCV MCH MCHC RDW Plt Count MPV Neut % (Auto) Lymph % (Auto) [place] % (Auto) Eos % (Auto) Baso % (Auto) Neut # Lymph # [place] # Eos # Baso # Neutrophils % (Manual) Band Neutrophils % Lymphocytes % (Manual) Monocytes % (Manual) Platelet Estimate Hypochromasia (manual) Anisocytosis (manual) Schistocytes ESR PT INR APTT pO2 VBG pH VBG pCO2 VBG HCO3 VBG Total CO2 VBG O2 Sat (Calc) VBG Base Excess Sodium 138 Chloride 106 Glucose Lactate FiO2 Crit Value Called To Crit Value Called By Crit Value Read Back Blood Gas Notified Time Potassium 3.5 L Carbon Dioxide 23 Anion Gap 13 BUN 39 H Creatinine 0.9 Est GFR ( Amer) > 60 Est GFR (Non-Af Amer) > 60 POC Glucose (mg/dL) 229 H Random Glucose 221 H Lactic Acid 1.2 Calcium 8.0 L Phosphorus Magnesium Total Bilirubin 1.0 AST 21 ALT 34 Alkaline Phosphatase 115 Troponin I Total Protein 5.3 L Albumin 2.5 L Globulin 2.8 Albumin/Globulin Ratio 0.9 L Urine Color Urine Clarity Urine pH Ur Specific [place] Urine Protein Urine Glucose (UA) Urine Ketones Urine Blood Urine Nitrate Urine Bilirubin Urine Urobilinogen Ur Leukocyte Esterase Urine Microscopic WBC Ur Squamous Epith Cells Hyaline Casts Urine Yeast (Budding) Blood Type Antibody Screen Crossmatch BBK History Checked 12/10/16 07:56 WBC RBC Hgb Hct MCV MCH MCHC RDW Plt Count MPV Neut % (Auto) Lymph % (Auto) [place] % (Auto) Eos % (Auto) Baso % (Auto) Neut # Lymph # [place] # Eos # Baso # Neutrophils % (Manual) Band Neutrophils % Lymphocytes % (Manual) Monocytes % (Manual) Platelet Estimate Hypochromasia (manual) Anisocytosis (manual) Schistocytes ESR PT INR APTT pO2 VBG pH VBG pCO2 VBG HCO3 VBG Total CO2 VBG O2 Sat (Calc) VBG Base Excess Sodium Chloride Glucose Lactate FiO2 Crit Value Called To Crit Value Called By Crit Value Read Back Blood Gas Notified Time Potassium Carbon Dioxide Anion Gap BUN Creatinine Est GFR ( Amer) Est GFR (Non-Af Amer) POC Glucose (mg/dL) Random Glucose Lactic Acid Calcium Phosphorus Magnesium Total Bilirubin AST ALT Alkaline Phosphatase Troponin I Total Protein Albumin Globulin Albumin/Globulin Ratio Urine Color [place] Urine Clarity Cloudy Urine pH 5.0 Ur Specific [place] 1.029 Urine Protein 100 Urine Glucose (UA) Neg Urine Ketones Negative Urine Blood Negative Urine Nitrate Negative Urine Bilirubin Small Urine Urobilinogen 0.2-1.0 Ur Leukocyte Esterase Mod Urine Microscopic WBC 43 H Ur Squamous Epith Cells 7 H Hyaline Casts 11-20 H Urine Yeast (Budding) Many H Blood Type Antibody Screen Crossmatch BBK History Checked
--- NOTE | 2016-12-10 10:57 | RAD ---
HISTORY: f/u [facility] COMPARISON: 12/09/2016. FINDINGS: LUNGS: There is interval development dense opacity in the right mid lung and lower lobe. There is venous congestion in the left lung. PLEURA: No significant pleural effusion identified, no pneumothorax apparent. CARDIOVASCULAR: Cannot be adequately evaluated due to opacification in the right lung. Status post CABG. OSSEOUS STRUCTURES: No significant abnormalities. VISUALIZED UPPER ABDOMEN: Normal. OTHER FINDINGS: None. IMPRESSION: Interval development of dense consolidation in the right mid lung and lower lobe which could represent pneumonia/ new partial collapse/ pleural effusion. Follow-up is advised.
--- NOTE | 2016-12-10 11:01 | CP.PCM.PN ---
Subjective - Date & Time of Evaluation Date of Evaluation: 12/10/16 Time of Evaluation: 13:00 - Subjective Subjective: ID Note- Pt. seen and examined today with her daughter at her bedside. Pt. more awake and alert today. she has 100% NRB mask on. continues to have thick cough and does not always expectorate. denies any chills. no diarrhea as per her daughter. Objective - Vital Signs/Intake and Output Vital Signs (last 24 hours): Temp Pulse Resp BP Pulse Ox 98.1 F 106 H 16 112/57 L 96 12/10/16 08:00 12/10/16 10:00 12/10/16 10:00 12/10/16 10:00 12/10/16 10:00 Intake and Output: 12/10/16 12/10/16 06:59 18:59 Intake Total 1810 725 Output Total 80 Balance 1730 725 - Medications Medications: Current Medications Albuterol/Ipratropium (Duoneb 3 Mg/0.5 Mg (3 Ml) Ud) 3 ml INH RQID REPLACED BY [facility] Last Admin: 12/10/16 11:00 Dose: 3 ml Vancomycin HCl 750 mg/ Sodium (Chloride) 250 mls @ 166.667 mls/hr IVPB Q12 ASHANTI Last Admin: 12/10/16 10:51 Dose: 166.667 mls/hr Piperacillin Sod/Tazobactam (Sod 3.375 gm/ Sodium Chloride) 100 mls @ 100 mls/ hr IVPB Q6 REPLACED BY [facility] Last Admin: 12/10/16 10:42 Dose: 100 mls/hr Levofloxacin/Dextrose (Levaquin 750mg) 750 mg in 150 mls @ 100 mls/hr IVPB DAILY REPLACED BY [facility] Last Admin: 12/10/16 10:52 Dose: 100 mls/hr Ibuprofen (Motrin Oral Susp) 400 mg PO Q6 PRN PRN Reason: Fever >100.4 F Insulin Human Regular (Humulin R) 0 units SC ACCU-CHECK ASHANTI PRN Reason: Protocol Last Admin: 12/10/16 08:02 Dose: Not Given Pantoprazole Sodium (Protonix Ec Tab) 40 mg PO DAILY REPLACED BY [facility] Last Admin: 12/10/16 08:39 Dose: 40 mg - Labs Labs: - Additional Findings Additional findings: - Constitutional Appears: Cachectic, Chronically Ill - Head Exam Head Exam: ATRAUMATIC - Eye Exam Eye Exam: EOMI, PERRL - ENT Exam Additional comments: dry oral mucosa - Respiratory Exam Respiratory Exam: NORMAL BREATHING PATTERN Additional comments: decreasd breath sounds right lung from base to mid lung field , no wheezing - Cardiovascular Exam Cardiovascular Exam: RRR, +S1, +S2 - GI/Abdominal Exam GI & Abdominal Exam: Normal Bowel Sounds, Soft Additional comments: NT, ND - Extremities Exam Additional comments: no edema b/l LE b/l heels with necrotic black escahr right heek worse than the left and she also has nonhealing dry open wound from above her right heel extending to mid- calf region posteriorly, no active discharge, bone visualized. malodor at the heel region her right hip surgical site is clean and well healed, no erythema - Neurological Exam Neurological exam: Alert Additional comments: oriented x 3 - Skin Additional comments: mid back with small round erythema and opening withour marquise discharge and mid sacral region with very small opening stage 1 ulcer, scant yellow discharge Laboratory Results - last 72 hr 12/09/16 12/09/16 12/09/16 16:07 16:35 16:35 WBC 29.7 H D RBC 2.97 L Hgb 7.6 L D Hct 24.4 L MCV 82.2 D MCH 25.5 L MCHC 31.1 L RDW 16.3 H Plt Count 438 H MPV 7.6 Neut % (Auto) 95.6 H Lymph % (Auto) 1.1 L Vill[place]ba % (Auto) 3.1 Eos % (Auto) 0.0 Baso % (Auto) 0.2 Neut # 28.3 H Lymph # 0.3 L [place] # 0.9 H Eos # 0.0 Baso # 0.1 Neutrophils % (Manual) 90 H Band Neutrophils % 5 H Lymphocytes % (Manual) 1 L Monocytes % (Manual) 4 Platelet Estimate Slightly increased H Large Platelets Present Giant Platelets Present Hypochromasia (manual) Poikilocytosis (manual Slight Anisocytosis (manual) Slight Ovalocytes Slight [place] Cells Slight Schistocytes ESR PT INR APTT pO2 VBG pH VBG pCO2 VBG HCO3 VBG Total CO2 VBG O2 Sat (Calc) VBG Base Excess Glucose Lactate FiO2 Crit Value Called To Crit Value Called By Crit Value Read Back Blood Gas Notified Time Sodium 135 Potassium 4.3 Chloride 98 Carbon Dioxide 26 Anion Gap 15 BUN 36 H Creatinine 0.9 Est GFR ( Amer) > 60 Est GFR (Non-Af Amer) > 60 POC Glucose (mg/dL) 281 H Random Glucose 239 H Lactic Acid Calcium 8.7 Phosphorus Magnesium Total Bilirubin 0.7 AST 19 ALT 26 Alkaline Phosphatase 150 H Troponin I Total Protein 6.4 Albumin 3.0 L Globulin 3.4 Albumin/Globulin Ratio 0.9 L Urine Color Urine Clarity Urine pH Ur Specific [place] Urine Protein Urine Glucose (UA) Urine Ketones Urine Blood Urine Nitrate Urine Bilirubin Urine Urobilinogen Ur Leukocyte Esterase Urine Microscopic WBC Ur Squamous Epith Cells Hyaline Casts Urine Yeast (Budding) Influenza Typ A,B (EIA) Blood Type Antibody Screen Crossmatch BBK History Checked 12/09/16 12/09/16 12/09/16 16:35 17:15 17:20 WBC RBC Hgb Hct MCV MCH MCHC RDW Plt Count MPV Neut % (Auto) Lymph % (Auto) [place] % (Auto) Eos % (Auto) Baso % (Auto) Neut # Lymph # [place] # Eos # Baso # Neutrophils % (Manual) Band Neutrophils % Lymphocytes % (Manual) Monocytes % (Manual) Platelet Estimate Large Platelets Giant Platelets Hypochromasia (manual) Poikilocytosis (manual Anisocytosis (manual) Ovalocytes Harish Cells Schistocytes ESR PT 14.0 H INR 1.2 APTT 29.4 pO2 23 L VBG pH 7.47 H VBG pCO2 37 L VBG HCO3 26.0 VBG Total CO2 28.0 VBG O2 Sat (Calc) 44.9 VBG Base Excess 3.2 H Glucose 226 H Lactate 4.4 H* FiO2 21.0 Crit Value Called To Dr radha nichols Crit Value Called By 162 Crit Value Read Back Y Blood Gas Notified Time 1725 Sodium 185.0 H* Potassium Chloride 120.0 H Carbon Dioxide Anion Gap BUN Creatinine Est GFR ( Amer) Est GFR (Non-Af Amer) POC Glucose (mg/dL) Random Glucose Lactic Acid Calcium Phosphorus Magnesium Total Bilirubin AST ALT Alkaline Phosphatase Troponin I Total Protein Albumin Globulin Albumin/Globulin Ratio Urine Color Urine Clarity Urine pH Ur Specific [place] Urine Protein Urine Glucose (UA) Urine Ketones Urine Blood Urine Nitrate Urine Bilirubin Urine Urobilinogen Ur Leukocyte Esterase Urine Microscopic WBC Ur Squamous Epith Cells Hyaline Casts Urine Yeast (Budding) Influenza Typ A,B (EIA) Negative for flu a/b Blood Type Antibody Screen Crossmatch BBK History Checked 12/09/16 12/09/16 12/09/16 17:22 17:25 20:34 WBC RBC Hgb Hct MCV MCH MCHC RDW Plt Count MPV Neut % (Auto) Lymph % (Auto) [place] % (Auto) Eos % (Auto) Baso % (Auto) Neut # Lymph # [place] # Eos # Baso # Neutrophils % (Manual) Band Neutrophils % Lymphocytes % (Manual) Monocytes % (Manual) Platelet Estimate Large Platelets Giant Platelets Hypochromasia (manual) Poikilocytosis (manual Anisocytosis (manual) Ovalocytes Harish Cells Schistocytes ESR PT INR APTT pO2 VBG pH VBG pCO2 VBG HCO3 VBG Total CO2 VBG O2 Sat (Calc) VBG Base Excess Glucose Lactate FiO2 Crit Value Called To Crit Value Called By Crit Value Read Back Blood Gas Notified Time Sodium Potassium Chloride Carbon Dioxide Anion Gap BUN Creatinine Est GFR ( Amer) Est GFR (Non-Af Amer) POC Glucose (mg/dL) Random Glucose Lactic Acid Calcium Phosphorus 2.9 Magnesium 1.9 Total Bilirubin AST ALT Alkaline Phosphatase Troponin I 0.0540 Total Protein Albumin Globulin Albumin/Globulin Ratio Urine Color Urine Clarity Urine pH Ur Specific [place] Urine Protein Urine Glucose (UA) Urine Ketones Urine Blood Urine Nitrate Urine Bilirubin Urine Urobilinogen Ur Leukocyte Esterase Urine Microscopic WBC Ur Squamous Epith Cells Hyaline Casts Urine Yeast (Budding) Influenza Typ A,B (EIA) Blood Type O POSITIVE Antibody Screen Negative Crossmatch See Detail BBK History Checked Patient has bt 12/09/16 12/09/16 12/09/16 20:34 21:14 22:56 WBC RBC Hgb Hct MCV MCH MCHC RDW Plt Count MPV Neut % (Auto) Lymph % (Auto) [place] % (Auto) Eos % (Auto) Baso % (Auto) Neut # Lymph # [place] # Eos # Baso # Neutrophils % (Manual) Band Neutrophils % Lymphocytes % (Manual) Monocytes % (Manual) Platelet Estimate Large Platelets Giant Platelets Hypochromasia (manual) Poikilocytosis (manual Anisocytosis (manual) Ovalocytes [place] Cells Schistocytes ESR 113 H PT INR APTT pO2 VBG pH VBG pCO2 VBG HCO3 VBG Total CO2 VBG O2 Sat (Calc) VBG Base Excess Glucose Lactate FiO2 Crit Value Called To Crit Value Called By Crit Value Read Back Blood Gas Notified Time Sodium Potassium Chloride Carbon Dioxide Anion Gap BUN Creatinine Est GFR ( Amer) Est GFR (Non-Af Amer) POC Glucose (mg/dL) 270 H Random Glucose Lactic Acid 5.7 H* Calcium Phosphorus Magnesium Total Bilirubin AST ALT Alkaline Phosphatase Troponin I Total Protein Albumin Globulin Albumin/Globulin Ratio Urine Color Urine Clarity Urine pH Ur Specific [place] Urine Protein Urine Glucose (UA) Urine Ketones Urine Blood Urine Nitrate Urine Bilirubin Urine Urobilinogen Ur Leukocyte Esterase Urine Microscopic WBC Ur Squamous Epith Cells Hyaline Casts Urine Yeast (Budding) Influenza Typ A,B (EIA) Blood Type Antibody Screen Crossmatch BBK History Checked 12/10/16 12/10/16 12/10/16 04:20 04:20 04:20 WBC 26.5 H RBC 3.31 L Hgb 8.6 L Hct 27.4 L MCV 82.9 MCH 25.9 L MCHC 31.3 L RDW 16.1 H Plt Count 321 D MPV 7.4 Neut % (Auto) 96.2 H Lymph % (Auto) 1.9 L [place] % (Auto) 1.9 Eos % (Auto) 0.0 Baso % (Auto) 0.0 Neut # 25.5 H Lymph # 0.5 L [place] # 0.5 Eos # 0.0 Baso # 0.0 Neutrophils % (Manual) 86 H Band Neutrophils % 8 H Lymphocytes % (Manual) 3 L Monocytes % (Manual) 3 Platelet Estimate Normal Large Platelets Giant Platelets Hypochromasia (manual) Slight Poikilocytosis (manual Anisocytosis (manual) Slight Ovalocytes Harish Cells Schistocytes Slight ESR PT INR APTT pO2 VBG pH VBG pCO2 VBG HCO3 VBG Total CO2 VBG O2 Sat (Calc) VBG Base Excess Glucose Lactate FiO2 Crit Value Called To Crit Value Called By Crit Value Read Back Blood Gas Notified Time Sodium 138 Potassium 3.5 L Chloride 106 Carbon Dioxide 23 Anion Gap 13 BUN 39 H Creatinine 0.9 Est GFR ( Amer) > 60 Est GFR (Non-Af Amer) > 60 POC Glucose (mg/dL) Random Glucose 221 H Lactic Acid 1.2 Calcium 8.0 L Phosphorus Magnesium Total Bilirubin 1.0 AST 21 ALT 34 Alkaline Phosphatase 115 Troponin I Total Protein 5.3 L Albumin 2.5 L Globulin 2.8 Albumin/Globulin Ratio 0.9 L Urine Color Urine Clarity Urine pH Ur Specific [place] Urine Protein Urine Glucose (UA) Urine Ketones Urine Blood Urine Nitrate Urine Bilirubin Urine Urobilinogen Ur Leukocyte Esterase Urine Microscopic WBC Ur Squamous Epith Cells Hyaline Casts Urine Yeast (Budding) Influenza Typ A,B (EIA) Blood Type Antibody Screen Crossmatch BBK History Checked 12/10/16 12/10/16 12/10/16 05:12 07:56 11:45 WBC RBC Hgb Hct MCV MCH MCHC RDW Plt Count MPV Neut % (Auto) Lymph % (Auto) [place] % (Auto) Eos % (Auto) Baso % (Auto) Neut # Lymph # [place] # Eos # Baso # Neutrophils % (Manual) Band Neutrophils % Lymphocytes % (Manual) Monocytes % (Manual) Platelet Estimate Large Platelets Giant Platelets Hypochromasia (manual) Poikilocytosis (manual Anisocytosis (manual) Ovalocytes [place] Cells Schistocytes ESR PT INR APTT pO2 VBG pH VBG pCO2 VBG HCO3 VBG Total CO2 VBG O2 Sat (Calc) VBG Base Excess Glucose Lactate FiO2 Crit Value Called To Crit Value Called By Crit Value Read Back Blood Gas Notified Time Sodium Potassium Chloride Carbon Dioxide Anion Gap BUN Creatinine Est GFR ( Amer) Est GFR (Non-Af Amer) POC Glucose (mg/dL) 229 H 160 H Random Glucose Lactic Acid Calcium Phosphorus Magnesium Total Bilirubin AST ALT Alkaline Phosphatase Troponin I Total Protein Albumin Globulin Albumin/Globulin Ratio Urine Color Rosa Isela Urine Clarity Cloudy Urine pH 5.0 Ur Specific [place] 1.029 Urine Protein 100 Urine Glucose (UA) Neg Urine Ketones Negative Urine Blood Negative Urine Nitrate Negative Urine Bilirubin Small Urine Urobilinogen 0.2-1.0 Ur Leukocyte Esterase Mod Urine Microscopic WBC 43 H Ur Squamous Epith Cells 7 H Hyaline Casts 11-20 H Urine Yeast (Budding) Many H Influenza Typ A,B (EIA) Blood Type Antibody Screen Crossmatch BBK History Checked 12/10/16 15:38 WBC RBC Hgb Hct MCV MCH MCHC RDW Plt Count MPV Neut % (Auto) Lymph % (Auto) [place] % (Auto) Eos % (Auto) Baso % (Auto) Neut # Lymph # [place] # Eos # Baso # Neutrophils % (Manual) Band Neutrophils % Lymphocytes % (Manual) Monocytes % (Manual) Platelet Estimate Large Platelets Giant Platelets Hypochromasia (manual) Poikilocytosis (manual Anisocytosis (manual) Ovalocytes Harish Cells Schistocytes ESR PT INR APTT pO2 VBG pH VBG pCO2 VBG HCO3 VBG Total CO2 VBG O2 Sat (Calc) VBG Base Excess Glucose Lactate FiO2 Crit Value Called To Crit Value Called By Crit Value Read Back Blood Gas Notified Time Sodium Potassium Chloride Carbon Dioxide Anion Gap BUN Creatinine Est GFR ( Amer) Est GFR (Non-Af Amer) POC Glucose (mg/dL) 161 H Random Glucose Lactic Acid Calcium Phosphorus Magnesium Total Bilirubin AST ALT Alkaline Phosphatase Troponin I Total Protein Albumin Globulin Albumin/Globulin Ratio Urine Color Urine Clarity Urine pH Ur Specific [place] Urine Protein Urine Glucose (UA) Urine Ketones Urine Blood Urine Nitrate Urine Bilirubin Urine Urobilinogen Ur Leukocyte Esterase Urine Microscopic WBC Ur Squamous Epith Cells Hyaline Casts Urine Yeast (Budding) Influenza Typ A,B (EIA) Blood Type Antibody Screen Crossmatch BBK History Checked Microbiology 12/09/16 16:30 Blood Blood Culture - Preliminary NO GROWTH AFTER 24 HOURS 12/09/16 16:30 Blood Blood Culture - Preliminary 12/09/16 16:30 Blood Gram Stain - Final Accession No. : [id number] Patient Name / ID : OLIVER KENNEDY / [id number] Exam Date : 12/10/2016 04:17:36 ( Approved ) Study Comment : Sex / Age : F / [id number] Creator : YARELIS TINAJERO MD Dictator : YARELIS TINAJERO MD Engine Room Operator : Wharf Helper : YARELIS TINAJERO MD Approver2 : Report Date : 12/10/2016 10:51:25 My Comment : HISTORY: f/u [facility] COMPARISON: 12/09/2016. FINDINGS: LUNGS: There is interval development dense opacity in the right mid lung and lower lobe. There is venous congestion in the left lung. PLEURA: No significant pleural effusion identified, no pneumothorax apparent. CARDIOVASCULAR: Cannot be adequately evaluated due to opacification in the right lung. Status post CABG. OSSEOUS STRUCTURES: No significant abnormalities. VISUALIZED UPPER ABDOMEN: Normal. OTHER FINDINGS: None. IMPRESSION: Interval development of dense consolidation in the right mid lung and lower lobe which could represent pneumonia/ new partial collapse/ pleural effusion. Follow-up is advised. Assessment and Plan (1) Pneumonia Status: Acute (2) SIRS (systemic inflammatory response syndrome) Status: Acute (3) Decubitus skin ulcer Status: Acute (4) COPD (chronic obstructive pulmonary disease) Status: Chronic (5) Leukocytosis Status: Acute (6) Nonhealing ulcer of heel Status: Acute - Assessment and Plan (Free Text) Assessment: A/P- 81 year old female with multiple medical conditions including CAD s/p MVR and stent, COPD, DM II, nonhealing necrotic heel wounds admitted with fever, leukocytosis found to have RML pneumonia. tclinically improved today. afebrile continues to have high leukocytosi but less than yesterday. cxr- almost white out of right lung, pneumonia blood cx from 12/09/2016- 1 out of 2 bottle sgram variable coccobacilli 1. pneumonia 2.nonhealing necrotic heel ulcers and right heel extending to posterior right calf region 3. COPD 4.DM II plan- await sputum cx. await urine cx. advise to continue with broad spectrum antibiotics namely vancomycin and zosyn and levaquin to treat the pneumonia and the sacral decubs . keep vanco trough <15. check echo r/o any vegetations. check bone scan r/o OM of the heels and right lower leg region. monitor aspiration precautions monitor wbc closely await legionella and mycoplasma results. futility of abx for the treatment of the necrotic foot limited since very poor vasculture of the LE. as per conservative wound managment as per wound nurse . All above d/w patient and her daughter at length. all above also d/w and Dietitian Teaching. ICU time 60 minutes.
--- NOTE | 2016-12-10 12:07 | CP.PCM.CON ---
History of Present Illness - History of Present Illness History of Present Illness: 81 YR OLD FEMALE WITH MULTIPLE MEDICAL PROBLEMS INCLUDING CABG,COPD,PERSISTENT FEET ULCERS AND PNEUMONIA WHO IS REFERRED FOR PULMONARY EVALUATION AND FOLLOW UP FOR PNEUMONIA,COPD EXACERBATION AND SEPTIC SHOCK WITH LACTIC ACIDOSIS. THE PT IS DROWSY BUT RESPONDS TO VERBAL COMMANDS.DAUGHTER IS AT BEDSIDE AND GIVES A HX OF PT BECOMING MORE DROWSY AND CONGESTED OVER THE PAST SEVERAL DAYS. Past Patient History - Infectious Disease Hx of Infectious Diseases: None - Past Medical History & Family History Past Medical History?: Yes - Past Social History Alcohol: None Drugs: Denies - CARDIAC Hx Congestive Heart Failure: No Hx Hypercholesterolemia: Yes Hx Hypertension: Yes - PULMONARY Hx Bronchitis: Yes Hx Chronic Obstructive Pulmonary Disease (COPD): Yes Hx Pneumonia: Yes (HAP) - NEUROLOGICAL Hx Seizures: No - HEENT Hx HEENT Problems: No - RENAL Hx Chronic Kidney Disease: No - ENDOCRINE/METABOLIC Hx Hyperthyroidism: Yes Hx Hypothyroidism: No - HEMATOLOGICAL/ONCOLOGICAL Hx Anemia: Yes Hx Human Immunodeficiency Virus (HIV): No - INTEGUMENTARY Hx Dermatological Problems: Yes (SEE HPI) - MUSCULOSKELETAL/RHEUMATOLOGICAL Hx Arthritis: No Hx Fractures: Yes (See HPI right intertrochanteric femoral fracture) Hx Rheumatoid Arthritis: Yes - GASTROINTESTINAL Hx Gastritis: Yes - GENITOURINARY/GYNECOLOGICAL Hx Sexually Transmitted Disorders: No - PSYCHIATRIC Hx Bipolar Disorder: Yes Hx Depression: Yes (See subjective) - SURGICAL HISTORY Hx Appendectomy: Yes Hx Coronary Artery Bypass Graft: Yes Hx Coronary Stent: Yes Hx Tonsillectomy: Yes - ANESTHESIA Hx Anesthesia: Yes Hx Anesthesia Reactions: No Hx Malignant Hyperthermia: No Meds Allergies/Adverse Reactions: Allergies Allergy/AdvReac Type Severity Reaction Status Date / Time No Known Allergies Allergy Verified 04/27/16 16:30 - Medications Medications: Current Medications Albuterol/Ipratropium (Duoneb 3 Mg/0.5 Mg (3 Ml) Ud) 3 ml INH RQID ASHANTI Last Admin: 12/10/16 11:00 Dose: 3 ml Vancomycin HCl 750 mg/ Sodium (Chloride) 250 mls @ 166.667 mls/hr IVPB Q12 ASHANTI Last Admin: 12/10/16 10:51 Dose: 166.667 mls/hr Piperacillin Sod/Tazobactam (Sod 3.375 gm/ Sodium Chloride) 100 mls @ 100 mls/ hr IVPB Q6 ASHANTI Last Admin: 12/10/16 10:42 Dose: 100 mls/hr Levofloxacin/Dextrose (Levaquin 750mg) 750 mg in 150 mls @ 100 mls/hr IVPB DAILY [facility] Last Admin: 12/10/16 10:52 Dose: 100 mls/hr Ibuprofen (Motrin Oral Susp) 400 mg PO Q6 PRN PRN Reason: Fever >100.4 F Insulin Human Regular (Humulin R) 0 units SC ACCU-CHECK ASHANTI PRN Reason: Protocol Last Admin: 12/10/16 11:47 Dose: Not Given Pantoprazole Sodium (Protonix Ec Tab) 40 mg PO DAILY [facility] Last Admin: 12/10/16 08:39 Dose: 40 mg Physical Exam - Constitutional Appears: Cachectic, Chronically Ill - Head Exam Head Exam: ATRAUMATIC, NORMAL INSPECTION, NORMOCEPHALIC - Eye Exam Additional comments: SUNKEN - ENT Exam ENT Exam: Mucous Membranes Moist, Normal Exam - Neck Exam Neck exam: Positive for: Normal Inspection - Respiratory Exam Respiratory Exam: Decreased Breath Sounds, Prolonged Expiratory Phase, Rales, Wheezes, Respiratory Distress Additional comments: ON 100 NRB - Cardiovascular Exam Cardiovascular Exam: Tachycardia - GI/Abdominal Exam GI & Abdominal Exam: Normal Bowel Sounds, Soft. absent: Tenderness - Rectal Exam Rectal Exam: NORMAL INSPECTION - Extremities Exam Additional comments: FEET ULCERS - Back Exam Back exam: NORMAL INSPECTION - Neurological Exam Additional comments: DROWSY - Psychiatric Exam Psychiatric exam: Normal Affect, Normal Mood - Skin Additional comments: POOR TUGOR - Additional Findings Additional findings: CXR-PNEUMONIA--R LUNG EORSE THAN R[MORE RML INFILTERATE] Results - Vital Signs Recent Vital Signs: Last Vital Signs Temp 98 F 12/10/16 12:00 Pulse 115 H 12/10/16 12:00 Resp 22 12/10/16 12:00 BP 108/54 L 12/10/16 12:00 Pulse Ox 94 L 12/10/16 12:00 - Labs Result Diagrams: 12/10/16 04:20 12/10/16 04:20 Labs: Laboratory Results - last 24 hr 12/09/16 12/09/16 12/09/16 17:15 17:20 17:22 WBC RBC Hgb Hct MCV MCH MCHC RDW Plt Count MPV Neut % (Auto) Lymph % (Auto) [place] % (Auto) Eos % (Auto) Baso % (Auto) Neut # Lymph # [place] # Eos # Baso # Neutrophils % (Manual) Band Neutrophils % Lymphocytes % (Manual) Monocytes % (Manual) Platelet Estimate Hypochromasia (manual) Anisocytosis (manual) Schistocytes ESR PT 14.0 H INR 1.2 APTT 29.4 pO2 23 L VBG pH 7.47 H VBG pCO2 37 L VBG HCO3 26.0 VBG Total CO2 28.0 VBG O2 Sat (Calc) 44.9 VBG Base Excess 3.2 H Sodium 185.0 H* Chloride 120.0 H Glucose 226 H Lactate 4.4 H* FiO2 21.0 Crit Value Called To Dr radha nichols Crit Value Called By 162 Crit Value Read Back Y Blood Gas Notified Time 1725 Potassium Carbon Dioxide Anion Gap BUN Creatinine Est GFR ( Amer) Est GFR (Non-Af Amer) POC Glucose (mg/dL) Random Glucose Lactic Acid Calcium Phosphorus 2.9 Magnesium 1.9 Total Bilirubin AST ALT Alkaline Phosphatase Troponin I Total Protein Albumin Globulin Albumin/Globulin Ratio Urine Color Urine Clarity Urine pH Ur Specific [place] Urine Protein Urine Glucose (UA) Urine Ketones Urine Blood Urine Nitrate Urine Bilirubin Urine Urobilinogen Ur Leukocyte Esterase Urine Microscopic WBC Ur Squamous Epith Cells Hyaline Casts Urine Yeast (Budding) Blood Type Antibody Screen Crossmatch BBK History Checked 12/09/16 12/09/16 12/09/16 17:25 20:34 20:34 WBC RBC Hgb Hct MCV MCH MCHC RDW Plt Count MPV Neut % (Auto) Lymph % (Auto) [place] % (Auto) Eos % (Auto) Baso % (Auto) Neut # Lymph # [place] # Eos # Baso # Neutrophils % (Manual) Band Neutrophils % Lymphocytes % (Manual) Monocytes % (Manual) Platelet Estimate Hypochromasia (manual) Anisocytosis (manual) Schistocytes ESR PT INR APTT pO2 VBG pH VBG pCO2 VBG HCO3 VBG Total CO2 VBG O2 Sat (Calc) VBG Base Excess Sodium Chloride Glucose Lactate FiO2 Crit Value Called To Crit Value Called By Crit Value Read Back Blood Gas Notified Time Potassium Carbon Dioxide Anion Gap BUN Creatinine Est GFR ( Amer) Est GFR (Non-Af Amer) POC Glucose (mg/dL) Random Glucose Lactic Acid 5.7 H* Calcium Phosphorus Magnesium Total Bilirubin AST ALT Alkaline Phosphatase Troponin I 0.0540 Total Protein Albumin Globulin Albumin/Globulin Ratio Urine Color Urine Clarity Urine pH Ur Specific [place] Urine Protein Urine Glucose (UA) Urine Ketones Urine Blood Urine Nitrate Urine Bilirubin Urine Urobilinogen Ur Leukocyte Esterase Urine Microscopic WBC Ur Squamous Epith Cells Hyaline Casts Urine Yeast (Budding) Blood Type O POSITIVE Antibody Screen Negative Crossmatch See Detail BBK History Checked Patient has bt 12/09/16 12/09/16 12/10/16 21:14 22:56 04:20 WBC 26.5 H RBC 3.31 L Hgb 8.6 L Hct 27.4 L MCV 82.9 MCH 25.9 L MCHC 31.3 L RDW 16.1 H Plt Count 321 D MPV 7.4 Neut % (Auto) 96.2 H Lymph % (Auto) 1.9 L [place] % (Auto) 1.9 Eos % (Auto) 0.0 Baso % (Auto) 0.0 Neut # 25.5 H Lymph # 0.5 L [place] # 0.5 Eos # 0.0 Baso # 0.0 Neutrophils % (Manual) 86 H Band Neutrophils % 8 H Lymphocytes % (Manual) 3 L Monocytes % (Manual) 3 Platelet Estimate Normal Hypochromasia (manual) Slight Anisocytosis (manual) Slight Schistocytes Slight ESR 113 H PT INR APTT pO2 VBG pH VBG pCO2 VBG HCO3 VBG Total CO2 VBG O2 Sat (Calc) VBG Base Excess Sodium Chloride Glucose Lactate FiO2 Crit Value Called To Crit Value Called By Crit Value Read Back Blood Gas Notified Time Potassium Carbon Dioxide Anion Gap BUN Creatinine Est GFR ( Amer) Est GFR (Non-Af Amer) POC Glucose (mg/dL) 270 H Random Glucose Lactic Acid Calcium Phosphorus Magnesium Total Bilirubin AST ALT Alkaline Phosphatase Troponin I Total Protein Albumin Globulin Albumin/Globulin Ratio Urine Color Urine Clarity Urine pH Ur Specific [place] Urine Protein Urine Glucose (UA) Urine Ketones Urine Blood Urine Nitrate Urine Bilirubin Urine Urobilinogen Ur Leukocyte Esterase Urine Microscopic WBC Ur Squamous Epith Cells Hyaline Casts Urine Yeast (Budding) Blood Type Antibody Screen Crossmatch BBK History Checked 12/10/16 12/10/16 12/10/16 04:20 04:20 05:12 WBC RBC Hgb Hct MCV MCH MCHC RDW Plt Count MPV Neut % (Auto) Lymph % (Auto) [place] % (Auto) Eos % (Auto) Baso % (Auto) Neut # Lymph # [place] # Eos # Baso # Neutrophils % (Manual) Band Neutrophils % Lymphocytes % (Manual) Monocytes % (Manual) Platelet Estimate Hypochromasia (manual) Anisocytosis (manual) Schistocytes ESR PT INR APTT pO2 VBG pH VBG pCO2 VBG HCO3 VBG Total CO2 VBG O2 Sat (Calc) VBG Base Excess Sodium 138 Chloride 106 Glucose Lactate FiO2 Crit Value Called To Crit Value Called By Crit Value Read Back Blood Gas Notified Time Potassium 3.5 L Carbon Dioxide 23 Anion Gap 13 BUN 39 H Creatinine 0.9 Est GFR ( Amer) > 60 Est GFR (Non-Af Amer) > 60 POC Glucose (mg/dL) 229 H Random Glucose 221 H Lactic Acid 1.2 Calcium 8.0 L Phosphorus Magnesium Total Bilirubin 1.0 AST 21 ALT 34 Alkaline Phosphatase 115 Troponin I Total Protein 5.3 L Albumin 2.5 L Globulin 2.8 Albumin/Globulin Ratio 0.9 L Urine Color Urine Clarity Urine pH Ur Specific [place] Urine Protein Urine Glucose (UA) Urine Ketones Urine Blood Urine Nitrate Urine Bilirubin Urine Urobilinogen Ur Leukocyte Esterase Urine Microscopic WBC Ur Squamous Epith Cells Hyaline Casts Urine Yeast (Budding) Blood Type Antibody Screen Crossmatch BBK History Checked 12/10/16 12/10/16 07:56 11:45 WBC RBC Hgb Hct MCV MCH MCHC RDW Plt Count MPV Neut % (Auto) Lymph % (Auto) [place] % (Auto) Eos % (Auto) Baso % (Auto) Neut # Lymph # [place] # Eos # Baso # Neutrophils % (Manual) Band Neutrophils % Lymphocytes % (Manual) Monocytes % (Manual) Platelet Estimate Hypochromasia (manual) Anisocytosis (manual) Schistocytes ESR PT INR APTT pO2 VBG pH VBG pCO2 VBG HCO3 VBG Total CO2 VBG O2 Sat (Calc) VBG Base Excess Sodium Chloride Glucose Lactate FiO2 Crit Value Called To Crit Value Called By Crit Value Read Back Blood Gas Notified Time Potassium Carbon Dioxide Anion Gap BUN Creatinine Est GFR ( Amer) Est GFR (Non-Af Amer) POC Glucose (mg/dL) 160 H Random Glucose Lactic Acid Calcium Phosphorus Magnesium Total Bilirubin AST ALT Alkaline Phosphatase Troponin I Total Protein Albumin Globulin Albumin/Globulin Ratio Urine Color [place] Urine Clarity Cloudy Urine pH 5.0 Ur Specific [place] 1.029 Urine Protein 100 Urine Glucose (UA) Neg Urine Ketones Negative Urine Blood Negative Urine Nitrate Negative Urine Bilirubin Small Urine Urobilinogen 0.2-1.0 Ur Leukocyte Esterase Mod Urine Microscopic WBC 43 H Ur Squamous Epith Cells 7 H Hyaline Casts 11-20 H Urine Yeast (Budding) Many H Blood Type Antibody Screen Crossmatch BBK History Checked Assessment & Plan - Assessment and Plan (Free Text) Assessment: PNEUMONIA WITH SEPTIC SHOCK, LACTIC ACIDOSIS AND SEVERE HYPOXEMIA[RESPIRATORY FAILURE] COPD EXACERBATION SEVERE DEHYDRATION CACHEXIA Plan: AGREE WITH 100% FIO2 PEREZ CULTURES BRONCHODILATOR THERAPY AND ANTIBIOTICS PROGNOSIS IS GAURDED WILL FOLLOW WITH YOU
--- NOTE | 2016-12-10 14:25 | CP.PCM.PN ---
Subjective - Date & Time of Evaluation Date of Evaluation: 12/10/16 Time of Evaluation: 14:20 - Subjective Subjective: Consultations by Aline Aparicio, Tom Jurado, and Anais harris (qv). Patient is much more alert today, but when she pulls off her oxygen non- rebreather mask her oxygen saturation drops to about 87%. She received 2 units of rbc's yesterday and her color is much better. She is afebrile and maintaining her blood pressure. Currently on IV vancomycin, Zosyn, and levofloxacin for RLL pneumonia. customer care agent shows NSR. She was seen by David Hassan for wound care (see his notes). There is necrosis both heels and right posterior leg, but these are not much changed from before. There is new stage I decubitus in sacral area. DM-II. Glucoses running around 200. Has orders for light insulin coverage. Will restart Januvia 100mg daily. Will order regular diet because I want to give her maximal appetite and protein/calories. Objective - Vital Signs/Intake and Output Vital Signs (last 24 hours): Temp Pulse Resp BP Pulse Ox 98 F 115 H 22 108/54 L 94 L 12/10/16 12:00 12/10/16 12:00 12/10/16 12:00 12/10/16 12:00 12/10/16 12:00 Intake and Output: 12/10/16 12/10/16 06:59 18:59 Intake Total 1810 1175 Output Total 80 Balance 1730 1175 - Medications Medications: Current Medications Acetaminophen (Tylenol 325mg Tab) 650 mg PO Q6 PRN PRN Reason: Fever >100.4 F Albuterol/Ipratropium (Duoneb 3 Mg/0.5 Mg (3 Ml) Ud) 3 ml INH RQID ASHANTI Last Admin: 12/10/16 11:00 Dose: 3 ml Vancomycin HCl 750 mg/ Sodium (Chloride) 250 mls @ 166.667 mls/hr IVPB Q12 ASHANTI Last Admin: 12/10/16 10:51 Dose: 166.667 mls/hr Piperacillin Sod/Tazobactam (Sod 3.375 gm/ Sodium Chloride) 100 mls @ 100 mls/ hr IVPB Q6 ASHANTI Last Admin: 12/10/16 10:42 Dose: 100 mls/hr Levofloxacin/Dextrose (Levaquin 750mg) 750 mg in 150 mls @ 100 mls/hr IVPB DAILY [facility] Last Admin: 12/10/16 10:52 Dose: 100 mls/hr Insulin Human Regular (Humulin R) 0 units SC ACCU-CHECK ASHANTI PRN Reason: Protocol Last Admin: 12/10/16 11:47 Dose: Not Given Pantoprazole Sodium (Protonix Ec Tab) 40 mg PO DAILY [facility] Last Admin: 12/10/16 08:39 Dose: 40 mg - Labs Labs: 12/10/16 04:20 12/10/16 04:20 PT 14.0 Seconds (9.8-13.1) H 12/09/16 17:15 INR 1.2 (0.9-1.2) 12/09/16 17:15 APTT 29.4 Seconds (25.6-37.1) 12/09/16 17:15 - Constitutional Appears: No Acute Distress, Chronically Ill - Head Exam Head Exam: NORMAL INSPECTION - Eye Exam Eye Exam: Normal appearance - ENT Exam ENT Exam: Mucous Membranes Moist Additional comments: edentulous - Neck Exam Neck Exam: Normal Inspection - Respiratory Exam Respiratory Exam: Decreased Breath Sounds Additional comments: Markedly decreased breath sounds at right base. Inspiratory crackles both bases. Upper airways clear but with decreased breath sounds. - Cardiovascular Exam Cardiovascular Exam: REGULAR RHYTHM, +S1, +S2 - GI/Abdominal Exam GI & Abdominal Exam: Soft - Exam Additional comments: Zhang in place - urine is clear. - Extremities Exam Additional comments: Dressings intact over both heels and right posterior leg. See notes by Aline Hassan RN. - Back Exam Additional comments: Erythema over wide area of sacrum and a 2m area of ulceration. Spinal deformity as before. - Neurological Exam Neurological Exam: Alert - Psychiatric Exam Psychiatric exam: Depressed - Skin Additional comments: See above. Assessment and Plan (1) SIRS (systemic inflammatory response syndrome) Assessment & Plan: Improved. SEE SUBJECTIVE Status: Acute (2) Pneumonia Assessment & Plan: SEE SUBJECTIVE Status: Acute (3) CAD (coronary artery disease) Status: Chronic (4) Anemia Assessment & Plan: SEE SUBJECTIVE - will check CBC and BMP in am. 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
--- NOTE | 2016-12-10 14:30 | CP.CCUPN ---
CCU Subjective - Physician Review Subjective (Free Text): Events overnight noted with hypotension shortly after arrival to ICU from ER last evening, additional fluid challenge given and blood products, BP subsequently improved, remains on 100% NRBM with 98% SPO2. Awake and in her usual state of mentation, no overall distress. Additional PRBC unit ordered and infused this AM ( 3rd unit). She denies any chest discomfort, SOB at rest now, ROS: as above, no other pertinent negs or positives on 10+ system review. Other PMSFH: As above, including former smoker, CVA with residual Ataxia, UGI Bleed, R hip frx and repair. All recent nursing and physician documentation reviewed and no new information noted relevant to current problems. CCU Objective - Vital Signs / Intake & Output Vital Signs (Last 4 hours): Vital Signs Temp Pulse Resp BP Pulse Ox 12/10/16 12:00 98 F 115 H 22 108/54 L 94 L Intake and Output (Last 8hrs): Intake & Output 12/09/16 12/10/16 12/10/16 22:59 06:59 14:59 Intake Total 1810 1175 Output Total 80 Balance 1730 1175 Intake: IV 500 Intake, Piggyback 600 950 Oral 60 25 Blood Product 650 200 Output: Urine 80 Urethral (Zhang) 80 - Physical Exam Pupils: Positive for: PERRL Extroacular Muscles: Positive for: EOMI Conjunctiva: Positive for: Normal. Negative for: Icteric Ears: Positive for: Normal Mouth: Positive for: Moist Mucous Membranes. Negative for: Drooling Pharnyx: Positive for: Normal. Negative for: EXUDATE Neck: Negative for: Meningeal Signs, JVD Respiratory/Chest: Positive for: Decreased Breath Sounds. Negative for: Accessory Muscle Use, Wheezes Cardiovascular: Positive for: Regular Rate and Rhythm, Tachycardic Abdomen: Positive for: Normal Bowel Sounds. Negative for: Tenderness, Distention Lower Extremity: Negative for: CALF TENDERNESS, Cyanosis Neurological: Positive for: GCS=15, Motor Func Grossly Intact. Negative for: Normal Cerebellar Funct Skin: Positive for: Warm. Negative for: Rashes - Medications Active Medications: Active Medications Generic Name Dose Route Start Last Admin Trade Name Freq PRN Reason Stop Dose Admin Acetaminophen 650 mg 12/10/16 12:03 Tylenol 325mg Tab PO Q6 PRN Fever >100.4 F Albuterol/Ipratropium 3 ml 12/09/16 20:00 12/10/16 11:00 Duoneb 3 Mg/0.5 Mg (3 Ml) Ud INH 3 ml RQID ASHANTI Administration Vancomycin HCl 750 mg/ Sodium 250 mls @ 166.667 mls/hr 12/10/16 09:00 10:51 Chloride IVPB 166.667 mls/hr Q12 ASHANTI Administration Piperacillin Sod/Tazobactam 100 mls @ 100 mls/hr 12/09/16 18:15 12/10/16 10: 42 Sod 3.375 gm/ Sodium Chloride IVPB 100 mls/hr Q6 ASHANTI Administration Levofloxacin/Dextrose 750 mg in 150 mls @ 100 mls/hr 12/09/16 18:45 12/10/16 10:52 Levaquin 750mg IVPB 100 mls/hr DAILY ASHANTI Administration Insulin Human Regular 0 units 12/09/16 23:00 12/10/16 11:47 Humulin R SC Not Given ACCU-CHECK ASHANTI Protocol Pantoprazole Sodium 40 mg 12/09/16 18:18 12/10/16 08:39 Protonix Ec Tab PO 40 mg DAILY ASHANTI Administration - Patient Studies Lab Studies: Lab Studies 12/10/16 12/10/16 12/10/16 Range/Units 11:45 07:56 05:12 WBC (4.8-10.8) K/uL RBC (3.80-5.20) Mil/uL Hgb (12.0-16.0) g/dL Hct (34.0-47.0) % MCV (81.0-99.0) fl MCH (27.0-31.0) pg MCHC (33.0-37.0) g/dL RDW (11.5-14.5) % Plt Count (130-400) K/uL MPV (7.2-11.7) fl Neut % (Auto) (50.0-75.0) % Lymph % (Auto) (20.0-40.0) % [place] % (Auto) (0.0-10.0) % Eos % (Auto) (0.0-4.0) % Baso % (Auto) (0.0-2.0) % Neut # (1.8-7.0) K/uL Lymph # (1.0-4.3) K/uL [place] # (0.0-0.8) K/uL Eos # (0.0-0.7) K/uL Baso # (0.0-0.2) K/uL Neutrophils % (Manual) (42-75) % Band Neutrophils % (0-2) % Lymphocytes % (Manual) (20-50) % Monocytes % (Manual) (0-10) % Platelet Estimate (NORMAL) Hypochromasia (manual) Anisocytosis (manual) Schistocytes ESR (0-30) mm/hr PT (9.8-13.1) Seconds INR (0.9-1.2) APTT (25.6-37.1) Seconds pO2 (30-55) mm/Hg VBG pH (7.32-7.43) VBG pCO2 (40-60) mmHg VBG HCO3 mmol/L VBG Total CO2 (22-28) mmol/L VBG O2 Sat (Calc) (40-65) % VBG Base Excess (0.0-2.0) mmol/L Sodium (132-148) mmol/L Chloride (98-107) mmol/L Glucose (65-105) mg/dL Lactate (0.7-2.1) mmol/L FiO2 % Crit Value Called To Crit Value Called By Crit Value Read Back Blood Gas Notified Time Potassium (3.6-5.0) MMOL/L Carbon Dioxide (22-30) mmol/L Anion Gap (10-20) BUN (7-17) mg/dl Creatinine (0.7-1.2) mg/dL Est GFR ( Amer) Est GFR (Non-Af Amer) POC Glucose (mg/dL) 160 H 229 H (65-110) mg/dL Random Glucose (65-105) mg/dL Lactic Acid (0.7-2.1) MMOL/L Calcium (8.4-10.2) mg/dL Phosphorus (2.5-4.5) mg/dl Magnesium (1.6-2.3) MG/DL Total Bilirubin (0.2-1.3) mg/dl AST (14-36) U/L ALT (9-52) U/L Alkaline Phosphatase (38-126) U/L Troponin I (0.00-0.120) ng/mL Total Protein (6.3-8.2) G/DL Albumin (3.5-5.0) g/dL Globulin (2.2-3.9) gm/dL Albumin/Globulin Ratio (1.0-2.1) Urine Color [place] (YELLOW) Urine Clarity Cloudy (Clear) Urine pH 5.0 (5.0-8.0) Ur Specific [place] 1.029 (1.003-1.030) Urine Protein 100 (NEGATIVE) mg/dL Urine Glucose (UA) Neg (Normal) mg/dL Urine Ketones Negative (NEGATIVE) mg/dL Urine Blood Negative (NEGATIVE) Urine Nitrate Negative (NEGATIVE) Urine Bilirubin Small (NEGATIVE) Urine Urobilinogen 0.2-1.0 (0.2-1.0) mg/dL Ur Leukocyte Esterase Mod (Negative) Nelly/uL Urine Microscopic WBC 43 H (0-5) /hpf Ur Squamous Epith Cells 7 H (0-5) /hpf Hyaline Casts 11-20 H (0-2) /hpf Urine Yeast (Budding) Many H (NEGATIVE) /hpf Blood Type Antibody Screen Crossmatch BBK History Checked 12/10/16 12/10/16 12/10/16 Range/Units 04:20 04:20 04:20 WBC 26.5 H (4.8-10.8) K/uL RBC 3.31 L (3.80-5.20) Mil/uL Hgb 8.6 L (12.0-16.0) g/dL Hct 27.4 L (34.0-47.0) % MCV 82.9 (81.0-99.0) fl MCH 25.9 L (27.0-31.0) pg MCHC 31.3 L (33.0-37.0) g/dL RDW 16.1 H (11.5-14.5) % Plt Count 321 D (130-400) K/uL MPV 7.4 (7.2-11.7) fl Neut % (Auto) 96.2 H (50.0-75.0) % Lymph % (Auto) 1.9 L (20.0-40.0) % [place] % (Auto) 1.9 (0.0-10.0) % Eos % (Auto) 0.0 (0.0-4.0) % Baso % (Auto) 0.0 (0.0-2.0) % Neut # 25.5 H (1.8-7.0) K/uL Lymph # 0.5 L (1.0-4.3) K/uL [place] # 0.5 (0.0-0.8) K/uL Eos # 0.0 (0.0-0.7) K/uL Baso # 0.0 (0.0-0.2) K/uL Neutrophils % (Manual) 86 H (42-75) % Band Neutrophils % 8 H (0-2) % Lymphocytes % (Manual) 3 L (20-50) % Monocytes % (Manual) 3 (0-10) % Platelet Estimate Normal (NORMAL) Hypochromasia (manual) Slight Anisocytosis (manual) Slight Schistocytes Slight ESR (0-30) mm/hr PT (9.8-13.1) Seconds INR (0.9-1.2) APTT (25.6-37.1) Seconds pO2 (30-55) mm/Hg VBG pH (7.32-7.43) VBG pCO2 (40-60) mmHg VBG HCO3 mmol/L VBG Total CO2 (22-28) mmol/L VBG O2 Sat (Calc) (40-65) % VBG Base Excess (0.0-2.0) mmol/L Sodium 138 (132-148) mmol/L Chloride 106 (98-107) mmol/L Glucose (65-105) mg/dL Lactate (0.7-2.1) mmol/L FiO2 % Crit Value Called To Crit Value Called By Crit Value Read Back Blood Gas Notified Time Potassium 3.5 L (3.6-5.0) MMOL/L Carbon Dioxide 23 (22-30) mmol/L Anion Gap 13 (10-20) BUN 39 H (7-17) mg/dl Creatinine 0.9 (0.7-1.2) mg/dL Est GFR ( Amer) > 60 Est GFR (Non-Af Amer) > 60 POC Glucose (mg/dL) (65-110) mg/dL Random Glucose 221 H (65-105) mg/dL Lactic Acid 1.2 (0.7-2.1) MMOL/L Calcium 8.0 L (8.4-10.2) mg/dL Phosphorus (2.5-4.5) mg/dl Magnesium (1.6-2.3) MG/DL Total Bilirubin 1.0 (0.2-1.3) mg/dl AST 21 (14-36) U/L ALT 34 (9-52) U/L Alkaline Phosphatase 115 (38-126) U/L Troponin I (0.00-0.120) ng/mL Total Protein 5.3 L (6.3-8.2) G/DL Albumin 2.5 L (3.5-5.0) g/dL Globulin 2.8 (2.2-3.9) gm/dL Albumin/Globulin Ratio 0.9 L (1.0-2.1) Urine Color (YELLOW) Urine Clarity (Clear) Urine pH (5.0-8.0) Ur Specific [place] (1.003-1.030) Urine Protein (NEGATIVE) mg/dL Urine Glucose (UA) (Normal) mg/dL Urine Ketones (NEGATIVE) mg/dL Urine Blood (NEGATIVE) Urine Nitrate (NEGATIVE) Urine Bilirubin (NEGATIVE) Urine Urobilinogen (0.2-1.0) mg/dL Ur Leukocyte Esterase (Negative) Nelly/uL Urine Microscopic WBC (0-5) /hpf Ur Squamous Epith Cells (0-5) /hpf Hyaline Casts (0-2) /hpf Urine Yeast (Budding) (NEGATIVE) /hpf Blood Type Antibody Screen Crossmatch BBK History Checked 12/09/16 12/09/16 12/09/16 Range/Units 22:56 21:14 20:34 WBC (4.8-10.8) K/uL RBC (3.80-5.20) Mil/uL Hgb (12.0-16.0) g/dL Hct (34.0-47.0) % MCV (81.0-99.0) fl MCH (27.0-31.0) pg MCHC (33.0-37.0) g/dL RDW (11.5-14.5) % Plt Count (130-400) K/uL MPV (7.2-11.7) fl Neut % (Auto) (50.0-75.0) % Lymph % (Auto) (20.0-40.0) % [place] % (Auto) (0.0-10.0) % Eos % (Auto) (0.0-4.0) % Baso % (Auto) (0.0-2.0) % Neut # (1.8-7.0) K/uL Lymph # (1.0-4.3) K/uL [place] # (0.0-0.8) K/uL Eos # (0.0-0.7) K/uL Baso # (0.0-0.2) K/uL Neutrophils % (Manual) (42-75) % Band Neutrophils % (0-2) % Lymphocytes % (Manual) (20-50) % Monocytes % (Manual) (0-10) % Platelet Estimate (NORMAL) Hypochromasia (manual) Anisocytosis (manual) Schistocytes ESR 113 H (0-30) mm/hr PT (9.8-13.1) Seconds INR (0.9-1.2) APTT (25.6-37.1) Seconds pO2 (30-55) mm/Hg VBG pH (7.32-7.43) VBG pCO2 (40-60) mmHg VBG HCO3 mmol/L VBG Total CO2 (22-28) mmol/L VBG O2 Sat (Calc) (40-65) % VBG Base Excess (0.0-2.0) mmol/L Sodium (132-148) mmol/L Chloride (98-107) mmol/L Glucose (65-105) mg/dL Lactate (0.7-2.1) mmol/L FiO2 % Crit Value Called To Crit Value Called By Crit Value Read Back Blood Gas Notified Time Potassium (3.6-5.0) MMOL/L Carbon Dioxide (22-30) mmol/L Anion Gap (10-20) BUN (7-17) mg/dl Creatinine (0.7-1.2) mg/dL Est GFR ( Amer) Est GFR (Non-Af Amer) POC Glucose (mg/dL) 270 H (65-110) mg/dL Random Glucose (65-105) mg/dL Lactic Acid 5.7 H* (0.7-2.1) MMOL/L Calcium (8.4-10.2) mg/dL Phosphorus (2.5-4.5) mg/dl Magnesium (1.6-2.3) MG/DL Total Bilirubin (0.2-1.3) mg/dl AST (14-36) U/L ALT (9-52) U/L Alkaline Phosphatase (38-126) U/L Troponin I (0.00-0.120) ng/mL Total Protein (6.3-8.2) G/DL Albumin (3.5-5.0) g/dL Globulin (2.2-3.9) gm/dL Albumin/Globulin Ratio (1.0-2.1) Urine Color (YELLOW) Urine Clarity (Clear) Urine pH (5.0-8.0) Ur Specific [place] (1.003-1.030) Urine Protein (NEGATIVE) mg/dL Urine Glucose (UA) (Normal) mg/dL Urine Ketones (NEGATIVE) mg/dL Urine Blood (NEGATIVE) Urine Nitrate (NEGATIVE) Urine Bilirubin (NEGATIVE) Urine Urobilinogen (0.2-1.0) mg/dL Ur Leukocyte Esterase (Negative) Nelly/uL Urine Microscopic WBC (0-5) /hpf Ur Squamous Epith Cells (0-5) /hpf Hyaline Casts (0-2) /hpf Urine Yeast (Budding) (NEGATIVE) /hpf Blood Type Antibody Screen Crossmatch BBK History Checked 12/09/16 12/09/16 12/09/16 Range/Units 20:34 17:25 17:22 WBC (4.8-10.8) K/uL RBC (3.80-5.20) Mil/uL Hgb (12.0-16.0) g/dL Hct (34.0-47.0) % MCV (81.0-99.0) fl MCH (27.0-31.0) pg MCHC (33.0-37.0) g/dL RDW (11.5-14.5) % Plt Count (130-400) K/uL MPV (7.2-11.7) fl Neut % (Auto) (50.0-75.0) % Lymph % (Auto) (20.0-40.0) % [place] % (Auto) (0.0-10.0) % Eos % (Auto) (0.0-4.0) % Baso % (Auto) (0.0-2.0) % Neut # (1.8-7.0) K/uL Lymph # (1.0-4.3) K/uL [place] # (0.0-0.8) K/uL Eos # (0.0-0.7) K/uL Baso # (0.0-0.2) K/uL Neutrophils % (Manual) (42-75) % Band Neutrophils % (0-2) % Lymphocytes % (Manual) (20-50) % Monocytes % (Manual) (0-10) % Platelet Estimate (NORMAL) Hypochromasia (manual) Anisocytosis (manual) Schistocytes ESR (0-30) mm/hr PT (9.8-13.1) Seconds INR (0.9-1.2) APTT (25.6-37.1) Seconds pO2 (30-55) mm/Hg VBG pH (7.32-7.43) VBG pCO2 (40-60) mmHg VBG HCO3 mmol/L VBG Total CO2 (22-28) mmol/L VBG O2 Sat (Calc) (40-65) % VBG Base Excess (0.0-2.0) mmol/L Sodium (132-148) mmol/L Chloride (98-107) mmol/L Glucose (65-105) mg/dL Lactate (0.7-2.1) mmol/L FiO2 % Crit Value Called To Crit Value Called By Crit Value Read Back Blood Gas Notified Time Potassium (3.6-5.0) MMOL/L Carbon Dioxide (22-30) mmol/L Anion Gap (10-20) BUN (7-17) mg/dl Creatinine (0.7-1.2) mg/dL Est GFR ( Amer) Est GFR (Non-Af Amer) POC Glucose (mg/dL) (65-110) mg/dL Random Glucose (65-105) mg/dL Lactic Acid (0.7-2.1) MMOL/L Calcium (8.4-10.2) mg/dL Phosphorus 2.9 (2.5-4.5) mg/dl Magnesium 1.9 (1.6-2.3) MG/DL Total Bilirubin (0.2-1.3) mg/dl AST (14-36) U/L ALT (9-52) U/L Alkaline Phosphatase (38-126) U/L Troponin I 0.0540 (0.00-0.120) ng/mL Total Protein (6.3-8.2) G/DL Albumin (3.5-5.0) g/dL Globulin (2.2-3.9) gm/dL Albumin/Globulin Ratio (1.0-2.1) Urine Color (YELLOW) Urine Clarity (Clear) Urine pH (5.0-8.0) Ur Specific [place] (1.003-1.030) Urine Protein (NEGATIVE) mg/dL Urine Glucose (UA) (Normal) mg/dL Urine Ketones (NEGATIVE) mg/dL Urine Blood (NEGATIVE) Urine Nitrate (NEGATIVE) Urine Bilirubin (NEGATIVE) Urine Urobilinogen (0.2-1.0) mg/dL Ur Leukocyte Esterase (Negative) Nelly/uL Urine Microscopic WBC (0-5) /hpf Ur Squamous Epith Cells (0-5) /hpf Hyaline Casts (0-2) /hpf Urine Yeast (Budding) (NEGATIVE) /hpf Blood Type O POSITIVE Antibody Screen Negative Crossmatch See Detail BBK History Checked Patient has bt 12/09/16 12/09/16 Range/Units 17:20 17:15 WBC (4.8-10.8) K/uL RBC (3.80-5.20) Mil/uL Hgb (12.0-16.0) g/dL Hct (34.0-47.0) % MCV (81.0-99.0) fl MCH (27.0-31.0) pg MCHC (33.0-37.0) g/dL RDW (11.5-14.5) % Plt Count (130-400) K/uL MPV (7.2-11.7) fl Neut % (Auto) (50.0-75.0) % Lymph % (Auto) (20.0-40.0) % [place] % (Auto) (0.0-10.0) % Eos % (Auto) (0.0-4.0) % Baso % (Auto) (0.0-2.0) % Neut # (1.8-7.0) K/uL Lymph # (1.0-4.3) K/uL [place] # (0.0-0.8) K/uL Eos # (0.0-0.7) K/uL Baso # (0.0-0.2) K/uL Neutrophils % (Manual) (42-75) % Band Neutrophils % (0-2) % Lymphocytes % (Manual) (20-50) % Monocytes % (Manual) (0-10) % Platelet Estimate (NORMAL) Hypochromasia (manual) Anisocytosis (manual) Schistocytes ESR (0-30) mm/hr PT 14.0 H (9.8-13.1) Seconds INR 1.2 (0.9-1.2) APTT 29.4 (25.6-37.1) Seconds pO2 23 L (30-55) mm/Hg VBG pH 7.47 H (7.32-7.43) VBG pCO2 37 L (40-60) mmHg VBG HCO3 26.0 mmol/L VBG Total CO2 28.0 (22-28) mmol/L VBG O2 Sat (Calc) 44.9 (40-65) % VBG Base Excess 3.2 H (0.0-2.0) mmol/L Sodium 185.0 H* (132-148) mmol/L Chloride 120.0 H (98-107) mmol/L Glucose 226 H (65-105) mg/dL Lactate 4.4 H* (0.7-2.1) mmol/L FiO2 21.0 % Crit Value Called To Dr radha nichols Crit Value Called By 162 Crit Value Read Back Y Blood Gas Notified Time 1725 Potassium (3.6-5.0) MMOL/L Carbon Dioxide (22-30) mmol/L Anion Gap (10-20) BUN (7-17) mg/dl Creatinine (0.7-1.2) mg/dL Est GFR ( Amer) Est GFR (Non-Af Amer) POC Glucose (mg/dL) (65-110) mg/dL Random Glucose (65-105) mg/dL Lactic Acid (0.7-2.1) MMOL/L Calcium (8.4-10.2) mg/dL Phosphorus (2.5-4.5) mg/dl Magnesium (1.6-2.3) MG/DL Total Bilirubin (0.2-1.3) mg/dl AST (14-36) U/L ALT (9-52) U/L Alkaline Phosphatase (38-126) U/L Troponin I (0.00-0.120) ng/mL Total Protein (6.3-8.2) G/DL Albumin (3.5-5.0) g/dL Globulin (2.2-3.9) gm/dL Albumin/Globulin Ratio (1.0-2.1) Urine Color (YELLOW) Urine Clarity (Clear) Urine pH (5.0-8.0) Ur Specific [place] (1.003-1.030) Urine Protein (NEGATIVE) mg/dL Urine Glucose (UA) (Normal) mg/dL Urine Ketones (NEGATIVE) mg/dL Urine Blood (NEGATIVE) Urine Nitrate (NEGATIVE) Urine Bilirubin (NEGATIVE) Urine Urobilinogen (0.2-1.0) mg/dL Ur Leukocyte Esterase (Negative) Nelly/uL Urine Microscopic WBC (0-5) /hpf Ur Squamous Epith Cells (0-5) /hpf Hyaline Casts (0-2) /hpf Urine Yeast (Budding) (NEGATIVE) /hpf Blood Type Antibody Screen Crossmatch BBK History Checked Laboratory Results - last 24 hr 12/09/16 12/09/16 12/09/16 17:15 17:20 17:22 WBC RBC Hgb Hct MCV MCH MCHC RDW Plt Count MPV Neut % (Auto) Lymph % (Auto) [place] % (Auto) Eos % (Auto) Baso % (Auto) Neut # Lymph # [place] # Eos # Baso # Neutrophils % (Manual) Band Neutrophils % Lymphocytes % (Manual) Monocytes % (Manual) Platelet Estimate Hypochromasia (manual) Anisocytosis (manual) Schistocytes ESR PT 14.0 H INR 1.2 APTT 29.4 pO2 23 L VBG pH 7.47 H VBG pCO2 37 L VBG HCO3 26.0 VBG Total CO2 28.0 VBG O2 Sat (Calc) 44.9 VBG Base Excess 3.2 H Sodium 185.0 H* Chloride 120.0 H Glucose 226 H Lactate 4.4 H* FiO2 21.0 Crit Value Called To Dr radha nichols Crit Value Called By 162 Crit Value Read Back Y Blood Gas Notified Time 1725 Potassium Carbon Dioxide Anion Gap BUN Creatinine Est GFR ( Amer) Est GFR (Non-Af Amer) POC Glucose (mg/dL) Random Glucose Lactic Acid Calcium Phosphorus 2.9 Magnesium 1.9 Total Bilirubin AST ALT Alkaline Phosphatase Troponin I Total Protein Albumin Globulin Albumin/Globulin Ratio Urine Color Urine Clarity Urine pH Ur Specific [place] Urine Protein Urine Glucose (UA) Urine Ketones Urine Blood Urine Nitrate Urine Bilirubin Urine Urobilinogen Ur Leukocyte Esterase Urine Microscopic WBC Ur Squamous Epith Cells Hyaline Casts Urine Yeast (Budding) Blood Type Antibody Screen Crossmatch BBK History Checked 12/09/16 12/09/16 12/09/16 17:25 20:34 20:34 WBC RBC Hgb Hct MCV MCH MCHC RDW Plt Count MPV Neut % (Auto) Lymph % (Auto) [place] % (Auto) Eos % (Auto) Baso % (Auto) Neut # Lymph # [place] # Eos # Baso # Neutrophils % (Manual) Band Neutrophils % Lymphocytes % (Manual) Monocytes % (Manual) Platelet Estimate Hypochromasia (manual) Anisocytosis (manual) Schistocytes ESR PT INR APTT pO2 VBG pH VBG pCO2 VBG HCO3 VBG Total CO2 VBG O2 Sat (Calc) VBG Base Excess Sodium Chloride Glucose Lactate FiO2 Crit Value Called To Crit Value Called By Crit Value Read Back Blood Gas Notified Time Potassium Carbon Dioxide Anion Gap BUN Creatinine Est GFR ( Amer) Est GFR (Non-Af Amer) POC Glucose (mg/dL) Random Glucose Lactic Acid 5.7 H* Calcium Phosphorus Magnesium Total Bilirubin AST ALT Alkaline Phosphatase Troponin I 0.0540 Total Protein Albumin Globulin Albumin/Globulin Ratio Urine Color Urine Clarity Urine pH Ur Specific [place] Urine Protein Urine Glucose (UA) Urine Ketones Urine Blood Urine Nitrate Urine Bilirubin Urine Urobilinogen Ur Leukocyte Esterase Urine Microscopic WBC Ur Squamous Epith Cells Hyaline Casts Urine Yeast (Budding) Blood Type O POSITIVE Antibody Screen Negative Crossmatch See Detail BBK History Checked Patient has bt 12/09/16 12/09/16 12/10/16 21:14 22:56 04:20 WBC 26.5 H RBC 3.31 L Hgb 8.6 L Hct 27.4 L MCV 82.9 MCH 25.9 L MCHC 31.3 L RDW 16.1 H Plt Count 321 D MPV 7.4 Neut % (Auto) 96.2 H Lymph % (Auto) 1.9 L [place] % (Auto) 1.9 Eos % (Auto) 0.0 Baso % (Auto) 0.0 Neut # 25.5 H Lymph # 0.5 L [place] # 0.5 Eos # 0.0 Baso # 0.0 Neutrophils % (Manual) 86 H Band Neutrophils % 8 H Lymphocytes % (Manual) 3 L Monocytes % (Manual) 3 Platelet Estimate Normal Hypochromasia (manual) Slight Anisocytosis (manual) Slight Schistocytes Slight ESR 113 H PT INR APTT pO2 VBG pH VBG pCO2 VBG HCO3 VBG Total CO2 VBG O2 Sat (Calc) VBG Base Excess Sodium Chloride Glucose Lactate FiO2 Crit Value Called To Crit Value Called By Crit Value Read Back Blood Gas Notified Time Potassium Carbon Dioxide Anion Gap BUN Creatinine Est GFR ( Amer) Est GFR (Non-Af Amer) POC Glucose (mg/dL) 270 H Random Glucose Lactic Acid Calcium Phosphorus Magnesium Total Bilirubin AST ALT Alkaline Phosphatase Troponin I Total Protein Albumin Globulin Albumin/Globulin Ratio Urine Color Urine Clarity Urine pH Ur Specific [place] Urine Protein Urine Glucose (UA) Urine Ketones Urine Blood Urine Nitrate Urine Bilirubin Urine Urobilinogen Ur Leukocyte Esterase Urine Microscopic WBC Ur Squamous Epith Cells Hyaline Casts Urine Yeast (Budding) Blood Type Antibody Screen Crossmatch BBK History Checked 12/10/16 12/10/16 12/10/16 04:20 04:20 05:12 WBC RBC Hgb Hct MCV MCH MCHC RDW Plt Count MPV Neut % (Auto) Lymph % (Auto) [place] % (Auto) Eos % (Auto) Baso % (Auto) Neut # Lymph # [place] # Eos # Baso # Neutrophils % (Manual) Band Neutrophils % Lymphocytes % (Manual) Monocytes % (Manual) Platelet Estimate Hypochromasia (manual) Anisocytosis (manual) Schistocytes ESR PT INR APTT pO2 VBG pH VBG pCO2 VBG HCO3 VBG Total CO2 VBG O2 Sat (Calc) VBG Base Excess Sodium 138 Chloride 106 Glucose Lactate FiO2 Crit Value Called To Crit Value Called By Crit Value Read Back Blood Gas Notified Time Potassium 3.5 L Carbon Dioxide 23 Anion Gap 13 BUN 39 H Creatinine 0.9 Est GFR ( Amer) > 60 Est GFR (Non-Af Amer) > 60 POC Glucose (mg/dL) 229 H Random Glucose 221 H Lactic Acid 1.2 Calcium 8.0 L Phosphorus Magnesium Total Bilirubin 1.0 AST 21 ALT 34 Alkaline Phosphatase 115 Troponin I Total Protein 5.3 L Albumin 2.5 L Globulin 2.8 Albumin/Globulin Ratio 0.9 L Urine Color Urine Clarity Urine pH Ur Specific [place] Urine Protein Urine Glucose (UA) Urine Ketones Urine Blood Urine Nitrate Urine Bilirubin Urine Urobilinogen Ur Leukocyte Esterase Urine Microscopic WBC Ur Squamous Epith Cells Hyaline Casts Urine Yeast (Budding) Blood Type Antibody Screen Crossmatch BBK History Checked 12/10/16 12/10/16 07:56 11:45 WBC RBC Hgb Hct MCV MCH MCHC RDW Plt Count MPV Neut % (Auto) Lymph % (Auto) [place] % (Auto) Eos % (Auto) Baso % (Auto) Neut # Lymph # [place] # Eos # Baso # Neutrophils % (Manual) Band Neutrophils % Lymphocytes % (Manual) Monocytes % (Manual) Platelet Estimate Hypochromasia (manual) Anisocytosis (manual) Schistocytes ESR PT INR APTT pO2 VBG pH VBG pCO2 VBG HCO3 VBG Total CO2 VBG O2 Sat (Calc) VBG Base Excess Sodium Chloride Glucose Lactate FiO2 Crit Value Called To Crit Value Called By Crit Value Read Back Blood Gas Notified Time Potassium Carbon Dioxide Anion Gap BUN Creatinine Est GFR ( Amer) Est GFR (Non-Af Amer) POC Glucose (mg/dL) 160 H Random Glucose Lactic Acid Calcium Phosphorus Magnesium Total Bilirubin AST ALT Alkaline Phosphatase Troponin I Total Protein Albumin Globulin Albumin/Globulin Ratio Urine Color [place] Urine Clarity Cloudy Urine pH 5.0 Ur Specific [place] 1.029 Urine Protein 100 Urine Glucose (UA) Neg Urine Ketones Negative Urine Blood Negative Urine Nitrate Negative Urine Bilirubin Small Urine Urobilinogen 0.2-1.0 Ur Leukocyte Esterase Mod Urine Microscopic WBC 43 H Ur Squamous Epith Cells 7 H Hyaline Casts 11-20 H Urine Yeast (Budding) Many H Blood Type Antibody Screen Crossmatch BBK History Checked EKG/Cardiology Studies: CXR: ( my interp)- new RLL, RML lung collapse, film is rotated again, but possible underlying worsening infiltrate? Fingerstick Blood Sugar Results: 160 Assessment/Plan - Assessment and Plan (Free Text) Assessment: MAJOR PROBLEMS: 1. AMS 2 Septic Encephalopathy 2. Acute Resp insuff 2 Atelectasis / Bacterial Pneumonitis, r/o Aspiration pneumonia 3. Severe Sepsis 2 Pneumonia and UTI, and Skin pressure Ulcers 4. Hypotension 2 Hypovolemia and Anemia 5. Acute on Chronic Anemia 6. Dehydration Plan: PLAN: 1. Improved Lactic academia noted and improved mentation. Will hold on CT Brain. 2. Empiric Abx coverage as directed by ID. Zhang catheter changed. 3. Chest Physiotherapy as tolerated, may need more suctioning, encourage coughing. 4. Maintain normoglycemia, continue Protonix, start Lovenox. Held Home meds: Lisinopril and Detrol.
[2016-12-10] MEDS: Albuterol-Ipratrop 3 mg / 0.5 (3 ml) UD INH PRN (23:41)
[2016-12-11] MEDS: Piperacillin/Tazobact 3.375 GM in Sodium Chloride 0.9% 100 ML IVPB SCH ×2 (05:02→09:28)
[2016-12-11 05:47] LABS: ABG ALLEN TEST YES; ARTERIAL BLOOD GAS HCO3 24.1 mmol/L (21-28); ARTERIAL BLOOD GAS HEMOGLOBIN 10.8 g/dL (11.7-17.4); ARTERIAL BLOOD GAS O2 CAPACITY 14.8 mL/dL (16-24); ARTERIAL BLOOD GAS O2 CONTENT 14.2 ML/dL (15-23); ARTERIAL BLOOD GAS O2 SAT 96.2 % (95-98); ARTERIAL BLOOD GAS PCO2 45 mm/Hg (35-45); ARTERIAL BLOOD GAS PH 7.35 (7.35-7.45); ARTERIAL BLOOD GAS PO2 71 mm/Hg (80-100); ARTERIAL BLOOD GAS TCO2 26.2 mmol/L (22-28)
[2016-12-11] MEDS: Insulin Regular 100 units/ml SC SCH ×4 (06:23→22:19)
[2016-12-11 07:16] LABS: BASO % 0.1 % (0.0-2.0); HEMOGLOBIN 10.1 g/dL (12.0-16.0); LYMPH # 0.5 K/uL (1.0-4.3); LYMPH % 2.2 % (20.0-40.0); MEAN CELL VOLUME 82.7 fl (81.0-99.0); MEAN CORPUSCULAR HEMOGLOBIN 26.8 pg (27.0-31.0); MEAN CORPUSCULAR HGB CONC 32.4 g/dL (33.0-37.0); MEAN PLATELET VOLUME 7.2 fl (7.2-11.7); MONO # 0.5 K/uL (0.0-0.8); MONO % 2.2 % (0.0-10.0); NEUT # 20.6 K/uL (1.8-7.0); NEUT % 95.5 % (50.0-75.0); PLATELET COUNT 314 K/uL (130-400); RBC 3.78 Mil/uL (3.80-5.20); RED CELL DISTRIBUTION WIDTH 15.9 % (11.5-14.5); WHITE BLOOD COUNT 21.6 K/uL (4.8-10.8)
[2016-12-11 07:26] LABS: BLOOD UREA NITROGEN 38 mg/dl (7-17); CALCIUM 8.5 mg/dL (8.4-10.2); GFR AFRICAN-AMERICAN > 60; GFR NON-AFRICAN AMERICAN > 60
[2016-12-11] MEDS: Albuterol-Ipratrop 3 mg / 0.5 (3 ml) UD INH SCH ×4 (07:31→19:01)
[2016-12-11] MEDS: levoFLOXacin 750 mg in D5W 750 MG/150 ML BAG IVPB SCH (09:26)
[2016-12-11] MEDS: Pantoprazole 40 mg EC Tab PO SCH (09:27)
--- NOTE | 2016-12-11 10:11 | CP.PCM.PN ---
Subjective - Date & Time of Evaluation Date of Evaluation: 12/11/16 Time of Evaluation: 10:15 - Subjective Subjective: MORE AWAKE AND ALERT RESPONDS APPROPRIATELY TO VERBAL COMMANDS OXYGENATION IMPROVED VSS Objective - Vital Signs/Intake and Output Vital Signs (last 24 hours): Temp Pulse Resp BP Pulse Ox 97.9 F 115 H 16 135/69 94 L 12/11/16 08:00 12/11/16 08:00 12/11/16 08:00 12/11/16 08:00 12/11/16 08:00 Intake and Output: 12/11/16 12/11/16 06:59 18:59 Intake Total 534 Output Total 1350 Balance -816 - Medications Medications: Current Medications Acetaminophen (Tylenol 325mg Tab) 650 mg PO Q6 PRN PRN Reason: Fever >100.4 F Last Admin: 12/10/16 16:10 Dose: 650 mg Albuterol/Ipratropium (Duoneb 3 Mg/0.5 Mg (3 Ml) Ud) 3 ml INH RQID [facility] Last Admin: 12/11/16 07:31 Dose: 3 ml Albuterol/Ipratropium (Duoneb 3 Mg/0.5 Mg (3 Ml) Ud) 3 ml INH RQ6 PRN PRN Reason: Shortness of Breath Last Admin: 12/10/16 23:41 Dose: 3 ml Vancomycin HCl 750 mg/ Sodium (Chloride) 250 mls @ 166.667 mls/hr IVPB Q12 [facility] Last Admin: 12/11/16 09:27 Dose: 166.667 mls/hr Piperacillin Sod/Tazobactam (Sod 3.375 gm/ Sodium Chloride) 100 mls @ 100 mls/ hr IVPB Q6 [facility] Last Admin: 12/11/16 09:28 Dose: 100 mls/hr Levofloxacin/Dextrose (Levaquin 750mg) 750 mg in 150 mls @ 100 mls/hr IVPB DAILY [facility] Last Admin: 12/11/16 09:26 Dose: 100 mls/hr Insulin Human Regular (Humulin R) 0 units SC ACCU-CHECK [facility] PRN Reason: Protocol Last Admin: 12/11/16 06:23 Dose: Not Given Pantoprazole Sodium (Protonix Ec Tab) 40 mg PO DAILY [facility] Last Admin: 12/11/16 09:27 Dose: 40 mg Sitagliptin Phosphate (Januvia) 100 mg PO DAILY A[facility] Last Admin: 12/10/16 16:05 Dose: 100 mg - Labs Labs: 12/11/16 05:30 12/11/16 05:30 PT 14.0 Seconds (9.8-13.1) H 12/09/16 17:15 INR 1.2 (0.9-1.2) 12/09/16 17:15 APTT 29.4 Seconds (25.6-37.1) 12/09/16 17:15 - Constitutional Appears: Chronically Ill - Head Exam Head Exam: ATRAUMATIC, NORMAL INSPECTION, NORMOCEPHALIC - Eye Exam Eye Exam: EOMI, Normal appearance, PERRL Pupil Exam: NORMAL ACCOMODATION, PERRL - ENT Exam ENT Exam: Mucous Membranes Moist, Normal Exam - Neck Exam Neck Exam: Full ROM, Normal Inspection. absent: Lymphadenopathy - Respiratory Exam Respiratory Exam: Prolonged Expiratory Phase, Rales, Wheezes, NORMAL BREATHING PATTERN - Cardiovascular Exam Cardiovascular Exam: REGULAR RHYTHM, +S1, +S2. absent: Murmur - GI/Abdominal Exam GI & Abdominal Exam: Soft, Normal Bowel Sounds. absent: Tenderness - Rectal Exam Rectal Exam: NORMAL INSPECTION - Extremities Exam Extremities Exam: Full ROM. absent: Joint Swelling, Pedal Edema - Back Exam Back Exam: NORMAL INSPECTION - Neurological Exam Neurological Exam: Alert, Awake, CN II-XII Intact - Psychiatric Exam Psychiatric exam: Flat Affect - Skin Skin Exam: Dry, Intact, Normal Color, Warm Assessment and Plan - Assessment and Plan (Free Text) Assessment: PNEUMONIA SEPTIC SHOCK IMPROVING LEUKOCYTOSIS DUE TO PNEUMONIA HYPOXEMIA IMPROVING ON 100% FIO2[ABGS REVIEWED--ADEQUATE] HYPOKALEMIA COPD ASHD Plan: CONTINUE PRESENT OXYGENATIONAND ANTIBIOTIC RX BEGIN O2 REDUCTION IN AM IF CXR SHOWS CONTINUED IMPROVEMENT OF INFILTERATES AND O2 SAT>85% WILL FOLLOW
--- NOTE | 2016-12-11 10:17 | RAD ---
HISTORY: PNEUMONIA COMPARISON: Chest x-ray performed 12/10/16 TECHNIQUE: Chest, one view. FINDINGS: LUNGS: Dense right lower lobe opacity. Patchy opacity in the right mid lung zone. Pulmonary venous congestion, right greater than left. Probable small left pleural effusion. No definite pneumothorax. Biapical pleural thickening. Please note that chest x-ray has limited sensitivity for the detection of pulmonary masses. 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 Partially obscured cardiomegaly. Dense atherosclerotic calcifications. OSSEOUS STRUCTURES: Diffuse osseous demineralization limits evaluation for acute fracture lines. Extensive degenerative changes of the spine and shoulders. Acromioclavicular arthropathy. VISUALIZED UPPER ABDOMEN: Unremarkable. OTHER FINDINGS: None. IMPRESSION: Dense right lower lobe opacity. Patchy opacity in the right mid lung zone. Pulmonary venous congestion, right greater than left. Probable small left pleural effusion. Biapical pleural thickening. Partially obscured cardiomegaly.
[2016-12-11] MEDS ORDERED: Potassium Chloride 20 mEq ER Tab PO ONE (11:13)
--- NOTE | 2016-12-11 11:14 | CP.PCM.PN ---
Subjective - Date & Time of Evaluation Date of Evaluation: 12/11/16 Time of Evaluation: 11:14 - Subjective Subjective: ID Note- pt. seen and examined today in ICU. Pt. sitting in chair today with oxygen mask on . states she feels slightly better and is less sob. still has thick cough. denies any fever. Objective - Vital Signs/Intake and Output Vital Signs (last 24 hours): Temp Pulse Resp BP Pulse Ox 97.9 F 109 H 25 H 135/66 100 12/11/16 08:00 12/11/16 10:00 12/11/16 10:00 12/11/16 10:00 12/11/16 10:00 Intake and Output: 12/11/16 12/11/16 06:59 18:59 Intake Total 534 850 Output Total 1350 400 Balance -816 450 - Medications Medications: Current Medications Acetaminophen (Tylenol 325mg Tab) 650 mg PO Q6 PRN PRN Reason: Fever >100.4 F Last Admin: 12/10/16 16:10 Dose: 650 mg Albuterol/Ipratropium (Duoneb 3 Mg/0.5 Mg (3 Ml) Ud) 3 ml INH RQID ASHANTI Last Admin: 12/11/16 07:31 Dose: 3 ml Albuterol/Ipratropium (Duoneb 3 Mg/0.5 Mg (3 Ml) Ud) 3 ml INH RQ6 PRN PRN Reason: Shortness of Breath Last Admin: 12/10/16 23:41 Dose: 3 ml Vancomycin HCl 750 mg/ Sodium (Chloride) 250 mls @ 166.667 mls/hr IVPB Q12 [facility] Last Admin: 12/11/16 09:27 Dose: 166.667 mls/hr Piperacillin Sod/Tazobactam (Sod 3.375 gm/ Sodium Chloride) 100 mls @ 100 mls/ hr IVPB Q6 ASHANTI Last Admin: 12/11/16 09:28 Dose: 100 mls/hr Levofloxacin/Dextrose (Levaquin 750mg) 750 mg in 150 mls @ 100 mls/hr IVPB DAILY [facility] Last Admin: 12/11/16 09:26 Dose: 100 mls/hr Insulin Human Regular (Humulin R) 0 units SC ACCU-CHECK ASHANTI PRN Reason: Protocol Last Admin: 12/11/16 06:23 Dose: Not Given Pantoprazole Sodium (Protonix Ec Tab) 40 mg PO DAILY [facility] Last Admin: 12/11/16 09:27 Dose: 40 mg Potassium Chloride (K-Dur 20 Meq Er Tab) 20 meq PO ONCE ONE Stop: 12/11/16 11:14 Sitagliptin Phosphate (Januvia) 100 mg PO DAILY [facility] Last Admin: 12/10/16 16:05 Dose: 100 mg - Labs Labs: - Additional Findings Additional findings: - Constitutional Appears: Cachectic, Chronically Ill - Head Exam Head Exam: ATRAUMATIC - Eye Exam Eye Exam: EOMI, PERRL - ENT Exam Additional comments: dry oral mucosa - Respiratory Exam Respiratory Exam: NORMAL BREATHING PATTERN Additional comments: decreased breath sounds right lung from base to mid lung field , no wheezing - Cardiovascular Exam Cardiovascular Exam: RRR, +S1, +S2 - GI/Abdominal Exam GI & Abdominal Exam: Normal Bowel Sounds, Soft Additional comments: NT, ND - Extremities Exam Additional comments: no edema b/l LE b/l heels with necrotic black escahr right heek worse than the left and she also has nonhealing dry open wound from above her right heel extending to mid- calf region posteriorly, no active discharge, bone visualized. malodor at the heel region her right hip surgical site is clean and well healed, no erythema - Neurological Exam Neurological exam: Alert Additional comments: oriented x 3 - Skin Additional comments: mid back with small round erythema and opening without any discharge and mid sacral region with very small opening stage 1 ulcer, scant yellow discharge Laboratory Results - last 72 hr 12/09/16 12/09/16 12/09/16 16:07 16:35 16:35 WBC 29.7 H D RBC 2.97 L Hgb 7.6 L D Hct 24.4 L MCV 82.2 D MCH 25.5 L MCHC 31.1 L RDW 16.3 H Plt Count 438 H MPV 7.6 Neut % (Auto) 95.6 H Lymph % (Auto) 1.1 L [place] % (Auto) 3.1 Eos % (Auto) 0.0 Baso % (Auto) 0.2 Neut # 28.3 H Lymph # 0.3 L [place] # 0.9 H Eos # 0.0 Baso # 0.1 Neutrophils % (Manual) 90 H Band Neutrophils % 5 H Lymphocytes % (Manual) 1 L Monocytes % (Manual) 4 Platelet Estimate Slightly increased H Large Platelets Present Giant Platelets Present Hypochromasia (manual) Poikilocytosis (manual Slight Anisocytosis (manual) Slight Ovalocytes Slight [place] Cells Slight Schistocytes ESR PT INR APTT pCO2 pO2 HCO3 ABG pH ABG Total CO2 ABG O2 Saturation ABG O2 Content ABG Base Excess ABG Hemoglobin ABG Carboxyhemoglobin POC ABG HHb (Measured) ABG Methemoglobin ABG O2 Capacity Best Test VBG pH VBG pCO2 VBG HCO3 VBG Total CO2 VBG O2 Sat (Calc) VBG Base Excess A-a O2 Difference Hgb O2 Saturation Glucose Lactate Vent Mode FiO2 Crit Value Called To Crit Value Called By Crit Value Read Back Blood Gas Notified Time Sodium 135 Potassium 4.3 Chloride 98 Carbon Dioxide 26 Anion Gap 15 BUN 36 H Creatinine 0.9 Est GFR ( Amer) > 60 Est GFR (Non-Af Amer) > 60 POC Glucose (mg/dL) 281 H Random Glucose 239 H Lactic Acid Calcium 8.7 Phosphorus Magnesium Total Bilirubin 0.7 AST 19 ALT 26 Alkaline Phosphatase 150 H Troponin I Total Protein 6.4 Albumin 3.0 L Globulin 3.4 Albumin/Globulin Ratio 0.9 L Urine Color Urine Clarity Urine pH Ur Specific [place] Urine Protein Urine Glucose (UA) Urine Ketones Urine Blood Urine Nitrate Urine Bilirubin Urine Urobilinogen Ur Leukocyte Esterase Urine Microscopic WBC Ur Squamous Epith Cells Hyaline Casts Urine Yeast (Budding) Vancomycin Trough Influenza Typ A,B (EIA) Blood Type Antibody Screen Crossmatch BBK History Checked 12/09/16 12/09/16 12/09/16 16:35 17:15 17:20 WBC RBC Hgb Hct MCV MCH MCHC RDW Plt Count MPV Neut % (Auto) Lymph % (Auto) [place] % (Auto) Eos % (Auto) Baso % (Auto) Neut # Lymph # [place] # Eos # Baso # Neutrophils % (Manual) Band Neutrophils % Lymphocytes % (Manual) Monocytes % (Manual) Platelet Estimate Large Platelets Giant Platelets Hypochromasia (manual) Poikilocytosis (manual Anisocytosis (manual) Ovalocytes Harish Cells Schistocytes ESR PT 14.0 H INR 1.2 APTT 29.4 pCO2 pO2 23 L HCO3 ABG pH ABG Total CO2 ABG O2 Saturation ABG O2 Content ABG Base Excess ABG Hemoglobin ABG Carboxyhemoglobin POC ABG HHb (Measured) ABG Methemoglobin ABG O2 Capacity Best Test VBG pH 7.47 H VBG pCO2 37 L VBG HCO3 26.0 VBG Total CO2 28.0 VBG O2 Sat (Calc) 44.9 VBG Base Excess 3.2 H A-a O2 Difference Hgb O2 Saturation Glucose 226 H Lactate 4.4 H* Vent Mode FiO2 21.0 Crit Value Called To Dr radha nichols Crit Value Called By 162 Crit Value Read Back Y Blood Gas Notified Time 1725 Sodium 185.0 H* Potassium Chloride 120.0 H Carbon Dioxide Anion Gap BUN Creatinine Est GFR ( Amer) Est GFR (Non-Af Amer) POC Glucose (mg/dL) Random Glucose Lactic Acid Calcium Phosphorus Magnesium Total Bilirubin AST ALT Alkaline Phosphatase Troponin I Total Protein Albumin Globulin Albumin/Globulin Ratio Urine Color Urine Clarity Urine pH Ur Specific [place] Urine Protein Urine Glucose (UA) Urine Ketones Urine Blood Urine Nitrate Urine Bilirubin Urine Urobilinogen Ur Leukocyte Esterase Urine Microscopic WBC Ur Squamous Epith Cells Hyaline Casts Urine Yeast (Budding) Vancomycin Trough Influenza Typ A,B (EIA) Negative for flu a/b Blood Type Antibody Screen Crossmatch BBK History Checked 12/09/16 12/09/16 12/09/16 17:22 17:25 20:34 WBC RBC Hgb Hct MCV MCH MCHC RDW Plt Count MPV Neut % (Auto) Lymph % (Auto) [place] % (Auto) Eos % (Auto) Baso % (Auto) Neut # Lymph # [place] # Eos # Baso # Neutrophils % (Manual) Band Neutrophils % Lymphocytes % (Manual) Monocytes % (Manual) Platelet Estimate Large Platelets Giant Platelets Hypochromasia (manual) Poikilocytosis (manual Anisocytosis (manual) Ovalocytes Harish Cells Schistocytes ESR PT INR APTT pCO2 pO2 HCO3 ABG pH ABG Total CO2 ABG O2 Saturation ABG O2 Content ABG Base Excess ABG Hemoglobin ABG Carboxyhemoglobin POC ABG HHb (Measured) ABG Methemoglobin ABG O2 Capacity Best Test VBG pH VBG pCO2 VBG HCO3 VBG Total CO2 VBG O2 Sat (Calc) VBG Base Excess A-a O2 Difference Hgb O2 Saturation Glucose Lactate Vent Mode FiO2 Crit Value Called To Crit Value Called By Crit Value Read Back Blood Gas Notified Time Sodium Potassium Chloride Carbon Dioxide Anion Gap BUN Creatinine Est GFR ( Amer) Est GFR (Non-Af Amer) POC Glucose (mg/dL) Random Glucose Lactic Acid Calcium Phosphorus 2.9 Magnesium 1.9 Total Bilirubin AST ALT Alkaline Phosphatase Troponin I 0.0540 Total Protein Albumin Globulin Albumin/Globulin Ratio Urine Color Urine Clarity Urine pH Ur Specific [place] Urine Protein Urine Glucose (UA) Urine Ketones Urine Blood Urine Nitrate Urine Bilirubin Urine Urobilinogen Ur Leukocyte Esterase Urine Microscopic WBC Ur Squamous Epith Cells Hyaline Casts Urine Yeast (Budding) Vancomycin Trough Influenza Typ A,B (EIA) Blood Type O POSITIVE Antibody Screen Negative Crossmatch See Detail BBK History Checked Patient has bt 12/09/16 12/09/16 12/09/16 20:34 21:14 22:56 WBC RBC Hgb Hct MCV MCH MCHC RDW Plt Count MPV Neut % (Auto) Lymph % (Auto) [place] % (Auto) Eos % (Auto) Baso % (Auto) Neut # Lymph # [place] # Eos # Baso # Neutrophils % (Manual) Band Neutrophils % Lymphocytes % (Manual) Monocytes % (Manual) Platelet Estimate Large Platelets Giant Platelets Hypochromasia (manual) Poikilocytosis (manual Anisocytosis (manual) Ovalocytes [place] Cells Schistocytes ESR 113 H PT INR APTT pCO2 pO2 HCO3 ABG pH ABG Total CO2 ABG O2 Saturation ABG O2 Content ABG Base Excess ABG Hemoglobin ABG Carboxyhemoglobin POC ABG HHb (Measured) ABG Methemoglobin ABG O2 Capacity Best Test VBG pH VBG pCO2 VBG HCO3 VBG Total CO2 VBG O2 Sat (Calc) VBG Base Excess A-a O2 Difference Hgb O2 Saturation Glucose Lactate Vent Mode FiO2 Crit Value Called To Crit Value Called By Crit Value Read Back Blood Gas Notified Time Sodium Potassium Chloride Carbon Dioxide Anion Gap BUN Creatinine Est GFR ( Amer) Est GFR (Non-Af Amer) POC Glucose (mg/dL) 270 H Random Glucose Lactic Acid 5.7 H* Calcium Phosphorus Magnesium Total Bilirubin AST ALT Alkaline Phosphatase Troponin I Total Protein Albumin Globulin Albumin/Globulin Ratio Urine Color Urine Clarity Urine pH Ur Specific [place] Urine Protein Urine Glucose (UA) Urine Ketones Urine Blood Urine Nitrate Urine Bilirubin Urine Urobilinogen Ur Leukocyte Esterase Urine Microscopic WBC Ur Squamous Epith Cells Hyaline Casts Urine Yeast (Budding) Vancomycin Trough Influenza Typ A,B (EIA) Blood Type Antibody Screen Crossmatch BBK History Checked 12/10/16 12/10/16 12/10/16 04:20 04:20 04:20 WBC 26.5 H RBC 3.31 L Hgb 8.6 L Hct 27.4 L MCV 82.9 MCH 25.9 L MCHC 31.3 L RDW 16.1 H Plt Count 321 D MPV 7.4 Neut % (Auto) 96.2 H Lymph % (Auto) 1.9 L [place] % (Auto) 1.9 Eos % (Auto) 0.0 Baso % (Auto) 0.0 Neut # 25.5 H Lymph # 0.5 L [place] # 0.5 Eos # 0.0 Baso # 0.0 Neutrophils % (Manual) 86 H Band Neutrophils % 8 H Lymphocytes % (Manual) 3 L Monocytes % (Manual) 3 Platelet Estimate Normal Large Platelets Giant Platelets Hypochromasia (manual) Slight Poikilocytosis (manual Anisocytosis (manual) Slight Ovalocytes [place] Cells Schistocytes Slight ESR PT INR APTT pCO2 pO2 HCO3 ABG pH ABG Total CO2 ABG O2 Saturation ABG O2 Content ABG Base Excess ABG Hemoglobin ABG Carboxyhemoglobin POC ABG HHb (Measured) ABG Methemoglobin ABG O2 Capacity Best Test VBG pH VBG pCO2 VBG HCO3 VBG Total CO2 VBG O2 Sat (Calc) VBG Base Excess A-a O2 Difference Hgb O2 Saturation Glucose Lactate Vent Mode FiO2 Crit Value Called To Crit Value Called By Crit Value Read Back Blood Gas Notified Time Sodium 138 Potassium 3.5 L Chloride 106 Carbon Dioxide 23 Anion Gap 13 BUN 39 H Creatinine 0.9 Est GFR ( Amer) > 60 Est GFR (Non-Af Amer) > 60 POC Glucose (mg/dL) Random Glucose 221 H Lactic Acid 1.2 Calcium 8.0 L Phosphorus Magnesium Total Bilirubin 1.0 AST 21 ALT 34 Alkaline Phosphatase 115 Troponin I Total Protein 5.3 L Albumin 2.5 L Globulin 2.8 Albumin/Globulin Ratio 0.9 L Urine Color Urine Clarity Urine pH Ur Specific [place] Urine Protein Urine Glucose (UA) Urine Ketones Urine Blood Urine Nitrate Urine Bilirubin Urine Urobilinogen Ur Leukocyte Esterase Urine Microscopic WBC Ur Squamous Epith Cells Hyaline Casts Urine Yeast (Budding) Vancomycin Trough Influenza Typ A,B (EIA) Blood Type Antibody Screen Crossmatch BBK History Checked 12/10/16 12/10/16 12/10/16 05:12 07:56 11:45 WBC RBC Hgb Hct MCV MCH MCHC RDW Plt Count MPV Neut % (Auto) Lymph % (Auto) [place] % (Auto) Eos % (Auto) Baso % (Auto) Neut # Lymph # [place] # Eos # Baso # Neutrophils % (Manual) Band Neutrophils % Lymphocytes % (Manual) Monocytes % (Manual) Platelet Estimate Large Platelets Giant Platelets Hypochromasia (manual) Poikilocytosis (manual Anisocytosis (manual) Ovalocytes Harish Cells Schistocytes ESR PT INR APTT pCO2 pO2 HCO3 ABG pH ABG Total CO2 ABG O2 Saturation ABG O2 Content ABG Base Excess ABG Hemoglobin ABG Carboxyhemoglobin POC ABG HHb (Measured) ABG Methemoglobin ABG O2 Capacity Best Test VBG pH VBG pCO2 VBG HCO3 VBG Total CO2 VBG O2 Sat (Calc) VBG Base Excess A-a O2 Difference Hgb O2 Saturation Glucose Lactate Vent Mode FiO2 Crit Value Called To Crit Value Called By Crit Value Read Back Blood Gas Notified Time Sodium Potassium Chloride Carbon Dioxide Anion Gap BUN Creatinine Est GFR ( Amer) Est GFR (Non-Af Amer) POC Glucose (mg/dL) 229 H 160 H Random Glucose Lactic Acid Calcium Phosphorus Magnesium Total Bilirubin AST ALT Alkaline Phosphatase Troponin I Total Protein Albumin Globulin Albumin/Globulin Ratio Urine Color [place]ela Urine Clarity Cloudy Urine pH 5.0 Ur Specific [place] 1.029 Urine Protein 100 Urine Glucose (UA) Neg Urine Ketones Negative Urine Blood Negative Urine Nitrate Negative Urine Bilirubin Small Urine Urobilinogen 0.2-1.0 Ur Leukocyte Esterase Mod Urine Microscopic WBC 43 H Ur Squamous Epith Cells 7 H Hyaline Casts 11-20 H Urine Yeast (Budding) Many H Vancomycin Trough Influenza Typ A,B (EIA) Blood Type Antibody Screen Crossmatch BBK History Checked 12/10/16 12/10/16 12/10/16 15:38 18:35 22:22 WBC RBC Hgb Hct MCV MCH MCHC RDW Plt Count MPV Neut % (Auto) Lymph % (Auto) [place] % (Auto) Eos % (Auto) Baso % (Auto) Neut # Lymph # [place] # Eos # Baso # Neutrophils % (Manual) Band Neutrophils % Lymphocytes % (Manual) Monocytes % (Manual) Platelet Estimate Large Platelets Giant Platelets Hypochromasia (manual) Poikilocytosis (manual Anisocytosis (manual) Ovalocytes Harish Cells Schistocytes ESR 74 H PT INR APTT pCO2 pO2 HCO3 ABG pH ABG Total CO2 ABG O2 Saturation ABG O2 Content ABG Base Excess ABG Hemoglobin ABG Carboxyhemoglobin POC ABG HHb (Measured) ABG Methemoglobin ABG O2 Capacity Best Test VBG pH VBG pCO2 VBG HCO3 VBG Total CO2 VBG O2 Sat (Calc) VBG Base Excess A-a O2 Difference Hgb O2 Saturation Glucose Lactate Vent Mode FiO2 Crit Value Called To Crit Value Called By Crit Value Read Back Blood Gas Notified Time Sodium Potassium Chloride Carbon Dioxide Anion Gap BUN Creatinine Est GFR ( Amer) Est GFR (Non-Af Amer) POC Glucose (mg/dL) 161 H 94 Random Glucose Lactic Acid Calcium Phosphorus Magnesium Total Bilirubin AST ALT Alkaline Phosphatase Troponin I Total Protein Albumin Globulin Albumin/Globulin Ratio Urine Color Urine Clarity Urine pH Ur Specific [place] Urine Protein Urine Glucose (UA) Urine Ketones Urine Blood Urine Nitrate Urine Bilirubin Urine Urobilinogen Ur Leukocyte Esterase Urine Microscopic WBC Ur Squamous Epith Cells Hyaline Casts Urine Yeast (Budding) Vancomycin Trough Influenza Typ A,B (EIA) Blood Type Antibody Screen Crossmatch BBK History Checked 12/11/16 12/11/16 12/11/16 05:16 05:30 05:30 WBC 21.6 H RBC 3.78 L Hgb 10.1 L Hct 31.3 L MCV 82.7 MCH 26.8 L MCHC 32.4 L RDW 15.9 H Plt Count 314 MPV 7.2 Neut % (Auto) 95.5 H Lymph % (Auto) 2.2 L [place] % (Auto) 2.2 Eos % (Auto) 0.0 Baso % (Auto) 0.1 Neut # 20.6 H Lymph # 0.5 L [place] # 0.5 Eos # 0.0 Baso # 0.0 Neutrophils % (Manual) 91 H Band Neutrophils % 2 Lymphocytes % (Manual) 4 L Monocytes % (Manual) 3 Platelet Estimate Normal Large Platelets Present Giant Platelets Present Hypochromasia (manual) Slight Poikilocytosis (manual Slight Anisocytosis (manual) Slight Ovalocytes Slight [place] Cells Slight Schistocytes ESR PT INR APTT pCO2 45 pO2 71 L HCO3 24.1 ABG pH 7.35 ABG Total CO2 26.2 ABG O2 Saturation 96.2 ABG O2 Content 14.2 L ABG Base Excess -1.0 ABG Hemoglobin 10.8 L ABG Carboxyhemoglobin 1.4 POC ABG HHb (Measured) 3.7 ABG Methemoglobin 1.8 ABG O2 Capacity 14.8 L Best Test Yes VBG pH VBG pCO2 VBG HCO3 VBG Total CO2 VBG O2 Sat (Calc) VBG Base Excess A-a O2 Difference 586.0 Hgb O2 Saturation 93.1 L Glucose Lactate Vent Mode Nrb FiO2 100.0 Crit Value Called To Crit Value Called By Crit Value Read Back Blood Gas Notified Time Sodium 144 Potassium 3.2 L Chloride 108 H Carbon Dioxide 25 Anion Gap 14 BUN 38 H Creatinine 0.9 Est GFR ( Amer) > 60 Est GFR (Non-Af Amer) > 60 POC Glucose (mg/dL) Random Glucose 95 Lactic Acid Calcium 8.5 Phosphorus Magnesium Total Bilirubin AST ALT Alkaline Phosphatase Troponin I Total Protein Albumin Globulin Albumin/Globulin Ratio Urine Color Urine Clarity Urine pH Ur Specific [place] Urine Protein Urine Glucose (UA) Urine Ketones Urine Blood Urine Nitrate Urine Bilirubin Urine Urobilinogen Ur Leukocyte Esterase Urine Microscopic WBC Ur Squamous Epith Cells Hyaline Casts Urine Yeast (Budding) Vancomycin Trough Influenza Typ A,B (EIA) Blood Type Antibody Screen Crossmatch BBK History Checked 12/11/16 12/11/16 12/11/16 05:30 06:05 11:59 WBC RBC Hgb Hct MCV MCH MCHC RDW Plt Count MPV Neut % (Auto) Lymph % (Auto) [place] % (Auto) Eos % (Auto) Baso % (Auto) Neut # Lymph # [place] # Eos # Baso # Neutrophils % (Manual) Band Neutrophils % Lymphocytes % (Manual) Monocytes % (Manual) Platelet Estimate Large Platelets Giant Platelets Hypochromasia (manual) Poikilocytosis (manual Anisocytosis (manual) Ovalocytes [place] Cells Schistocytes ESR PT INR APTT pCO2 pO2 HCO3 ABG pH ABG Total CO2 ABG O2 Saturation ABG O2 Content ABG Base Excess ABG Hemoglobin ABG Carboxyhemoglobin POC ABG HHb (Measured) ABG Methemoglobin ABG O2 Capacity Best Test VBG pH VBG pCO2 VBG HCO3 VBG Total CO2 VBG O2 Sat (Calc) VBG Base Excess A-a O2 Difference Hgb O2 Saturation Glucose Lactate Vent Mode FiO2 Crit Value Called To Crit Value Called By Crit Value Read Back Blood Gas Notified Time Sodium Potassium Chloride Carbon Dioxide Anion Gap BUN Creatinine Est GFR ( Amer) Est GFR (Non-Af Amer) POC Glucose (mg/dL) 107 171 H Random Glucose Lactic Acid Calcium Phosphorus Magnesium Total Bilirubin AST ALT Alkaline Phosphatase Troponin I Total Protein Albumin Globulin Albumin/Globulin Ratio Urine Color Urine Clarity Urine pH Ur Specific [place] Urine Protein Urine Glucose (UA) Urine Ketones Urine Blood Urine Nitrate Urine Bilirubin Urine Urobilinogen Ur Leukocyte Esterase Urine Microscopic WBC Ur Squamous Epith Cells Hyaline Casts Urine Yeast (Budding) Vancomycin Trough 14.9 H Influenza Typ A,B (EIA) Blood Type Antibody Screen Crossmatch BBK History Checked Microbiology 12/09/16 21:14 Decubitus - Sacral Area Wound Culture - Preliminary Gram Pos Cocci In Clusters 12/09/16 18:21 Trachasp Gram Stain - Final 12/09/16 16:30 Blood Blood Culture - Preliminary NO GROWTH AFTER 24 HOURS 12/09/16 16:30 Blood Blood Culture - Preliminary 12/09/16 16:30 Blood Gram Stain - Final Accession No. : [id number] Patient Name / ID : OLIVER KENNEDY / [id number] Exam Date : 12/11/2016 07:28:41 ( Approved ) Study Comment : Sex / Age : F / [id number] Creator : Barbara Heart MD Dictator : Barbara Heart MD Wide Load Escort : Operations Research Analyst : Barbara Heart MD Approver2 : Report Date : 12/11/2016 10:10:38 My Comment : HISTORY: PNEUMONIA COMPARISON: Chest x-ray performed 12/10/16 TECHNIQUE: Chest, one view. FINDINGS: LUNGS: Dense right lower lobe opacity. Patchy opacity in the right mid lung zone. Pulmonary venous congestion, right greater than left. Probable small left pleural effusion. No definite pneumothorax. Biapical pleural thickening. Please note that chest x-ray has limited sensitivity for the detection of pulmonary masses. 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 Partially obscured cardiomegaly. Dense atherosclerotic calcifications. OSSEOUS STRUCTURES: Diffuse osseous demineralization limits evaluation for acute fracture lines. Extensive degenerative changes of the spine and shoulders. Acromioclavicular arthropathy. VISUALIZED UPPER ABDOMEN: Unremarkable. OTHER FINDINGS: None. IMPRESSION: Dense right lower lobe opacity. Patchy opacity in the right mid lung zone. Pulmonary venous congestion, right greater than left. Probable small left pleural effusion. Biapical pleural thickening. Partially obscured cardiomegaly. Assessment and Plan (1) Pneumonia Status: Acute (2) SIRS (systemic inflammatory response syndrome) Status: Acute (3) Decubitus skin ulcer Status: Acute (4) COPD (chronic obstructive pulmonary disease) Status: Chronic (5) Leukocytosis Status: Acute (6) Nonhealing ulcer of heel Status: Acute - Assessment and Plan (Free Text) Assessment: A/P- 81 year old female with multiple medical conditions including CAD s/p MVR and stent, COPD, DM II, nonhealing necrotic heel wounds admitted with fever, leukocytosis found to have RML pneumonia. clinically improved today. afebrile continues to have high leukocytosis but trending down. cxr- almost white out of right lung, pneumonia but better than yesterday's cxr blood cx from 12/09/2016- 1 out of 2 bottle gram variable coccobacilli decub cx- gram pos cocci in clusters 1. pneumonia 2.nonhealing necrotic heel ulcers and right heel extending to posterior right calf region 3. COPD 4.DM II plan- advise to continue with broad spectrum antibiotics namely vancomycin and zosyn and levaquin to treat the pneumonia . vanco is also for the sacral decub GPC treatment. await final ID of the gram variable cocobacilli reported on one of the admission blood cx. keep vanco trough <15. check echo r/o any vegetations. check bone scan r/o OM of the heels and right lower leg region. monitor aspiration precautions monitor wbc closely await legionella and mycoplasma results. futility of abx for the treatment of the necrotic foot limited since very poor vasculature of the LE. as per conservative wound management as per wound nurse . ICU time 60 minutes.
[2016-12-11 11:55] LABS: ANISOCYTOSIS SLIGHT; BANDS 2 % (0-2); GIANT PLATELETS PRESENT; HYPOCHROMIC SLIGHT; LARGE PLATELETS PRESENT; LYMPHOCYTE 4 % (20-50); MONOCYTE 3 % (0-10); NEUTROPHIL 91 % (42-75); PLATELET ESTIMATE NORMAL (NORMAL); POIKILOCYTOSIS SLIGHT; TOTAL CELLS COUNTED 100
[2016-12-11 11:56] LABS: BURR CELLS SLIGHT; OVALOCYTES SLIGHT
--- NOTE | 2016-12-11 12:32 | CP.PCM.PN ---
Subjective - Date & Time of Evaluation Date of Evaluation: 12/11/16 Time of Evaluation: 11:40 - Subjective Subjective: Mentation much clear, recognised me readily Still dyspnoic, resp rate 20 BPM Sinus tach at 104 BPM/BP 130/70 mm HG Apical syst murmur of MR+ Bilat coarse crepitations + (Copious expectorate+) Has put out 600 Ml of urine in 5 hrs HypoK+ (K+ supplement is given) Sepsis and effects of hypoperfusion resolving Needs to be OOB Objective - Vital Signs/Intake and Output Vital Signs (last 24 hours): Temp Pulse Resp BP Pulse Ox 97.9 F 109 H 25 H 135/66 100 12/11/16 08:00 12/11/16 10:00 12/11/16 10:00 12/11/16 10:00 12/11/16 10:00 Intake and Output: 12/11/16 12/11/16 06:59 18:59 Intake Total 534 850 Output Total 1350 400 Balance -816 450 - Medications Medications: Current Medications Acetaminophen (Tylenol 325mg Tab) 650 mg PO Q6 PRN PRN Reason: Fever >100.4 F Last Admin: 12/10/16 16:10 Dose: 650 mg Albuterol/Ipratropium (Duoneb 3 Mg/0.5 Mg (3 Ml) Ud) 3 ml INH RQID ASHANTI Last Admin: 12/11/16 11:15 Dose: 3 ml Albuterol/Ipratropium (Duoneb 3 Mg/0.5 Mg (3 Ml) Ud) 3 ml INH RQ6 PRN PRN Reason: Shortness of Breath Last Admin: 12/10/16 23:41 Dose: 3 ml Vancomycin HCl 750 mg/ Sodium (Chloride) 250 mls @ 166.667 mls/hr IVPB Q12 ASHANTI Last Admin: 12/11/16 09:27 Dose: 166.667 mls/hr Levofloxacin/Dextrose (Levaquin 750mg) 750 mg in 150 mls @ 100 mls/hr IVPB DAILY [facility] Last Admin: 12/11/16 09:26 Dose: 100 mls/hr Piperacillin Sod/Tazobactam Sod (Zosyn 3.375 Gm Iv Premix) 3.375 gm in 50 mls @ 50 mls/hr IVPB Q6 [facility] Insulin Human Regular (Humulin R) 0 units SC ACCU-CHECK [facility] PRN Reason: Protocol Last Admin: 12/11/16 06:23 Dose: Not Given Pantoprazole Sodium (Protonix Ec Tab) 40 mg PO DAILY [facility] Last Admin: 12/11/16 09:27 Dose: 40 mg Sitagliptin Phosphate (Januvia) 100 mg PO DAILY [facility] Last Admin: 12/11/16 12:22 Dose: 100 mg - Labs Labs: 12/11/16 05:30 12/11/16 05:30 PT 14.0 Seconds (9.8-13.1) H 12/09/16 17:15 INR 1.2 (0.9-1.2) 12/09/16 17:15 APTT 29.4 Seconds (25.6-37.1) 12/09/16 17:15
[2016-12-11] MEDS: Piperacill/Tazo 3.375gm in Dex 3.375 GM/50 ML BAG IVPB SCH ×2 (16:21→23:00)
--- NOTE | 2016-12-11 18:35 | CP.PCM.PN ---
Subjective - Date & Time of Evaluation Date of Evaluation: 12/11/16 Time of Evaluation: 18:31 - Subjective Subjective: Patient is more alert and more comfortable, but still with dyspnea and unwilling to move due to pain in right hip area and other sites. Poor appetite. This is not new, but as per dietitian I will add Glucerna 8 oz tid . I will also restart Effexor XR 37.5mg daily as this did seem to help her depression in the past (although her children say otherwise). Notes by Adrien Aparicio, and Aline Mosquera appreciated. We are awaiting more info regarding the two positive blood cultures. To continue present antibiotics for now. DM controlled - glucose 149. As per Dr. Aline Mosquera patient is stable for transfer to - telemetry. Objective - Vital Signs/Intake and Output Vital Signs (last 24 hours): Temp Pulse Resp BP Pulse Ox 98.4 F 108 H 25 H 144/70 96 12/11/16 16:00 12/11/16 18:00 12/11/16 18:00 12/11/16 18:00 12/11/16 18:00 Intake and Output: 12/11/16 12/11/16 06:59 18:59 Intake Total 534 1550 Output Total 1350 500 Balance -816 1050 - Medications Medications: Current Medications Acetaminophen (Tylenol 325mg Tab) 650 mg PO Q6 PRN PRN Reason: Fever >100.4 F Last Admin: 12/10/16 16:10 Dose: 650 mg Albuterol/Ipratropium (Duoneb 3 Mg/0.5 Mg (3 Ml) Ud) 3 ml INH RQID [facility] Last Admin: 12/11/16 15:13 Dose: 3 ml Albuterol/Ipratropium (Duoneb 3 Mg/0.5 Mg (3 Ml) Ud) 3 ml INH RQ6 PRN PRN Reason: Shortness of Breath Last Admin: 12/10/16 23:41 Dose: 3 ml Vancomycin HCl 750 mg/ Sodium (Chloride) 250 mls @ 166.667 mls/hr IVPB Q12 [facility] Last Admin: 12/11/16 09:27 Dose: 166.667 mls/hr Levofloxacin/Dextrose (Levaquin 750mg) 750 mg in 150 mls @ 100 mls/hr IVPB DAILY [facility] Last Admin: 12/11/16 09:26 Dose: 100 mls/hr Piperacillin Sod/Tazobactam Sod (Zosyn 3.375 Gm Iv Premix) 3.375 gm in 50 mls @ 50 mls/hr IVPB Q6 [facility] Last Admin: 12/11/16 16:21 Dose: 50 mls/hr Insulin Human Regular (Humulin R) 0 units SC ACCU-CHECK [facility] PRN Reason: Protocol Last Admin: 12/11/16 16:20 Dose: Not Given Pantoprazole Sodium (Protonix Ec Tab) 40 mg PO DAILY [facility] Last Admin: 12/11/16 09:27 Dose: 40 mg Sitagliptin Phosphate (Januvia) 100 mg PO DAILY [facility] Last Admin: 12/11/16 12:22 Dose: 100 mg - Labs Labs: 12/11/16 05:30 12/11/16 05:30 PT 14.0 Seconds (9.8-13.1) H 12/09/16 17:15 INR 1.2 (0.9-1.2) 12/09/16 17:15 APTT 29.4 Seconds (25.6-37.1) 12/09/16 17:15 - Constitutional Appears: Non-toxic, No Acute Distress, Chronically Ill - Head Exam Head Exam: NORMAL INSPECTION - ENT Exam ENT Exam: Mucous Membranes Moist - Neck Exam Neck Exam: Normal Inspection - Respiratory Exam Respiratory Exam: Decreased Breath Sounds Additional comments: Markedly decreased breath sounds still at right base. Insp rales both bases. - Cardiovascular Exam Cardiovascular Exam: REGULAR RHYTHM, +S1, +S2 - GI/Abdominal Exam GI & Abdominal Exam: Soft - Extremities Exam Additional comments: Dressings in place both heels and right posterior lower leg. Right foot is cooler than left. No palpable pedal pulses. No edema. - Back Exam Additional comments: Sacral decubitus ulcerations as prev. described. - Neurological Exam Neurological Exam: Alert, Awake, Oriented x3 - Psychiatric Exam Psychiatric exam: Flat Affect - Skin Skin Exam: Dry, Normal Color, Warm Assessment and Plan (1) SIRS (systemic inflammatory response syndrome) Assessment & Plan: IMPROVED. 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 Status: Acute - Assessment and Plan (Free Text) Assessment: PATIENT IS MILDLY IMPROVED AND TREATMENTS WILL CONTINUE. PATIENT MAY BE TRANSFERRED TO - TELEMETRY.
[2016-12-12] MEDS: Piperacill/Tazo 3.375gm in Dex 3.375 GM/50 ML BAG IVPB SCH ×4 (03:57→21:19)
[2016-12-12 05:45] LABS: ABG ALLEN TEST YES; ARTERIAL BLOOD GAS HCO3 25.8 mmol/L (21-28); ARTERIAL BLOOD GAS HEMOGLOBIN 10.6 g/dL (11.7-17.4); ARTERIAL BLOOD GAS O2 CAPACITY 14.6 mL/dL (16-24); ARTERIAL BLOOD GAS O2 CONTENT 14.4 ML/dL (15-23); ARTERIAL BLOOD GAS O2 SAT 98.4 % (95-98); ARTERIAL BLOOD GAS PCO2 48 mm/Hg (35-45); ARTERIAL BLOOD GAS PH 7.36 (7.35-7.45); ARTERIAL BLOOD GAS PO2 90 mm/Hg (80-100); ARTERIAL BLOOD GAS TCO2 28.6 mmol/L (22-28)
[2016-12-12] MEDS: Insulin Regular 100 units/ml SC SCH ×4 (06:37→22:28)
[2016-12-12] MEDS: Albuterol-Ipratrop 3 mg / 0.5 (3 ml) UD INH SCH ×5 (07:46→19:21)
[2016-12-12 08:22] LABS: BASO % 0.2 % (0.0-2.0); HEMOGLOBIN 10.3 g/dL (12.0-16.0); LYMPH # 0.7 K/uL (1.0-4.3); LYMPH % 3.8 % (20.0-40.0); MEAN CELL VOLUME 82.7 fl (81.0-99.0); MEAN CORPUSCULAR HEMOGLOBIN 26.7 pg (27.0-31.0); MEAN CORPUSCULAR HGB CONC 32.3 g/dL (33.0-37.0); MEAN PLATELET VOLUME 7.3 fl (7.2-11.7); MONO # 0.5 K/uL (0.0-0.8); MONO % 2.9 % (0.0-10.0); NEUT # 17.1 K/uL (1.8-7.0); NEUT % 93.1 % (50.0-75.0); PLATELET COUNT 320 K/uL (130-400); RBC 3.84 Mil/uL (3.80-5.20); RED CELL DISTRIBUTION WIDTH 16.3 % (11.5-14.5); WHITE BLOOD COUNT 18.4 K/uL (4.8-10.8)
--- NOTE | 2016-12-12 08:38 | CARD ---
APPROVED REPORT EXAM: Two-dimensional and M-mode echocardiogram with Doppler and color Doppler. Other Information Quality : GoodRhythm : NSR INDICATION Infection:Subacute bacterial endocarditis Surgery/Intervention Status/Post Mitral Valve Replacement: 2D DIMENSIONS IVSd1.34 (0.7-1.1cm)LVDd2.98 (3.9-5.9cm) PWd1.51 (0.7-1.1cm)IVSs1.29 (0.8-1.2cm) LVDs2.67 (2.5-4.0cm)FS (%) 10.5 % PWs1.04 (0.8-1.2cm) M-Mode DIMENSIONS Left Atrium (MM)5.03 (2.5-4.0cm)Aortic Root3.29 (2.2-3.7cm) Aortic Cusp Exc.1.82 (1.5-2.0cm) Mitral Valve E/A ratio0.0 TDI E/Lateral E'0.0E/Medial E'0.0 Tricuspid Valve TR Peak [id number] [id number] Peak Gr.40mmHg [id number] LEFT VENTRICLE The left ventricle is normal size. There is mild concentric left ventricular hypertrophy. Left ventricle systolic function is normal. The Ejection Fraction is 60-65%. Apical half of inf setal segment was mildly hypokinetic Other LV segments contracted well. Doppler signal was poor. RIGHT VENTRICLE The right ventricle is mildly to moderately dilated. There is normal right ventricular wall thickness. Systolic function is moderately reduced. ATRIA The left atrium is mildly dilated. The right atrium is moderately dilated. AORTIC VALVE The aortic valve is mildly to moderately sclerotic. No aortic regurgitation is present. There is no aortic valvular stenosis. There is no aortic valvular vegetation. MITRAL VALVE Tissue prosthesis at mitral position functioned well. No vegetations seen on it. There is no evidence of mitral valve prolapse. There is no mitral valve stenosis. There is no mitral valve regurgitation noted. TRICUSPID VALVE The tricuspid valve is normal in structure. There is moderate to severe tricuspid regurgitation. Right ventricular systolic pressure is estimated at 50 mmHg. There is moderate-severe pulmonary hypertension. There is no tricuspid valve prolapse or vegetation. PULMONIC VALVE The pulmonary valve is normal in structure and function. There is no pulmonic valvular regurgitation. GREAT VESSELS The aortic root is normal in size. The IVC was not visualized. PERICARDIAL EFFUSION The pericardium appears normal. <Conclusion> The left ventricle is normal size. There is mild concentric left ventricular hypertrophy. Apical half of inf setal segment was mildly hypokinetic Other LV segments contracted well. Left ventricle systolic function is normal. The Ejection Fraction is 60-65%. The right ventricle is mildly to moderately dilated. Systolic function is moderately reduced. The right atrium is moderately dilated. There is moderate to severe tricuspid regurgitation. There is moderate-severe pulmonary hypertension. No vegetations seen on this TTE.
[2016-12-12 08:58] LABS: BLOOD UREA NITROGEN 32 mg/dl (7-17); CALCIUM 8.6 mg/dL (8.4-10.2); GFR AFRICAN-AMERICAN > 60; GFR NON-AFRICAN AMERICAN > 60
[2016-12-12] MEDS: Pantoprazole 40 mg EC Tab PO SCH (08:58)
[2016-12-12] MEDS: Venlafaxine 37.5 mg ER Cap PO SCH (08:58)
[2016-12-12] MEDS: levoFLOXacin 750 mg in D5W 750 MG/150 ML BAG IVPB SCH (08:59)
--- NOTE | 2016-12-12 09:24 | CP.PCM.PN ---
Subjective - Date & Time of Evaluation Date of Evaluation: 12/12/16 Time of Evaluation: 09:25 - Subjective Subjective: MORE ALERT AND AWAKE FEELS BETTER DOES NOT KEEP O2 ON VSS Objective - Vital Signs/Intake and Output Vital Signs (last 24 hours): Temp Pulse Resp BP Pulse Ox 98 F 113 H 18 163/86 H 91 L 12/12/16 08:00 12/12/16 08:00 12/12/16 08:00 12/12/16 08:00 12/12/16 08:00 Intake and Output: 12/12/16 12/12/16 06:59 18:59 Intake Total 570 Output Total 575 Balance -5 - Medications Medications: Current Medications Acetaminophen (Tylenol 325mg Tab) 650 mg PO Q6 PRN PRN Reason: Fever >100.4 F Last Admin: 12/10/16 16:10 Dose: 650 mg Albuterol/Ipratropium (Duoneb 3 Mg/0.5 Mg (3 Ml) Ud) 3 ml INH RQID [facility] Last Admin: 12/12/16 07:46 Dose: 3 ml Albuterol/Ipratropium (Duoneb 3 Mg/0.5 Mg (3 Ml) Ud) 3 ml INH RQ6 PRN PRN Reason: Shortness of Breath Last Admin: 12/10/16 23:41 Dose: 3 ml Vancomycin HCl 750 mg/ Sodium (Chloride) 250 mls @ 166.667 mls/hr IVPB Q12 [facility] Last Admin: 12/12/16 08:59 Dose: 166.667 mls/hr Levofloxacin/Dextrose (Levaquin 750mg) 750 mg in 150 mls @ 100 mls/hr IVPB DAILY [facility] Last Admin: 12/12/16 08:59 Dose: 100 mls/hr Piperacillin Sod/Tazobactam Sod (Zosyn 3.375 Gm Iv Premix) 3.375 gm in 50 mls @ 50 mls/hr IVPB Q6 [facility] Last Admin: 12/12/16 09:00 Dose: 50 mls/hr Insulin Human Regular (Humulin R) 0 units SC ACCU-CHECK [facility] PRN Reason: Protocol Last Admin: 12/12/16 06:37 Dose: 1 unit Pantoprazole Sodium (Protonix Ec Tab) 40 mg PO DAILY [facility] Last Admin: 07/16/17 08:58 Dose: 40 mg Sitagliptin Phosphate (Januvia) 100 mg PO DAILY [facility] Last Admin: 12/12/16 08:58 Dose: 100 mg Venlafaxine HCl (Effexor Xr) 37.5 mg PO DAILY [facility] Last Admin: 12/12/16 08:58 Dose: 37.5 mg - Labs Labs: 12/12/16 05:30 12/12/16 05:30 PT 14.0 Seconds (9.8-13.1) H 12/09/16 17:15 INR 1.2 (0.9-1.2) 12/09/16 17:15 APTT 29.4 Seconds (25.6-37.1) 12/09/16 17:15 - Constitutional Appears: Cachectic, Chronically Ill - Head Exam Head Exam: ATRAUMATIC, NORMAL INSPECTION, NORMOCEPHALIC - Eye Exam Eye Exam: EOMI, Normal appearance, PERRL Pupil Exam: NORMAL ACCOMODATION, PERRL - ENT Exam ENT Exam: Mucous Membranes Moist, Normal Exam - Neck Exam Neck Exam: Full ROM, Normal Inspection. absent: Lymphadenopathy - Respiratory Exam Respiratory Exam: Decreased Breath Sounds, Prolonged Expiratory Phase, Rales, NORMAL BREATHING PATTERN - Cardiovascular Exam Cardiovascular Exam: REGULAR RHYTHM, +S1, +S2. absent: Murmur - GI/Abdominal Exam GI & Abdominal Exam: Soft, Normal Bowel Sounds. absent: Tenderness - Rectal Exam Rectal Exam: NORMAL INSPECTION - Extremities Exam Extremities Exam: Full ROM, Normal Capillary Refill. absent: Joint Swelling, Pedal Edema - Back Exam Back Exam: NORMAL INSPECTION - Neurological Exam Neurological Exam: Alert, Awake, CN II-XII Intact, Oriented x3 - Psychiatric Exam Psychiatric exam: Flat Affect - Skin Skin Exam: Dry, Intact, Normal Color, Warm Assessment and Plan - Assessment and Plan (Free Text) Assessment: PNEUMONIA SEPSIS HYPOXEMIA CACHEXIA Plan: CONTINUE PRESENT ANTIBIOTIC RX DECREASE FIO2 TO 50% SCHEULE FOR CT SCAN OF CHEST TO EVALUATE EXTENT OF PLEURAL EFFUSION/PNEUMONIA
--- NOTE | 2016-12-12 11:54 | CP.PCM.PN ---
Subjective - Date & Time of Evaluation Date of Evaluation: 12/12/16 Time of Evaluation: 11:49 - Subjective Subjective: Patient is lying quietly, oxygen mask half off, not eating breakfast. [ Glucerna 8 oz tid has been ordered.] She is swallowing pills without difficulty. She continues on IV Vancomycin, Zosyn. amd levofloxacin for sepsis/pneumonia coverage. Final ID of positive blood cultures is Hemophilus influenzae. Culture of sacrum is positive for staph. aureus. At first she refused the powered pressure reducing mattress, but she finally accepted this as an aid to preventing/treating sacral and posterior right leg ulcerations. Zhang catheter in place for urinary retention (chronic neurogenic bladder) with drainage of adequate clear urine. Denies chest pain. She dyspnea on exertion, but does little to exert herself until asked to do something. No fevers. Not coughing up much sputum. Objective - Vital Signs/Intake and Output Vital Signs (last 24 hours): Temp Pulse Resp BP Pulse Ox 98 F 113 H 18 163/86 H 91 L 12/12/16 08:00 12/12/16 08:00 12/12/16 08:00 12/12/16 08:00 12/12/16 08:00 Intake and Output: 12/12/16 12/12/16 06:59 18:59 Intake Total 570 Output Total 575 Balance -5 - Medications Medications: Current Medications Acetaminophen (Tylenol 325mg Tab) 650 mg PO Q6 PRN PRN Reason: Fever >100.4 F Last Admin: 12/10/16 16:10 Dose: 650 mg Albuterol/Ipratropium (Duoneb 3 Mg/0.5 Mg (3 Ml) Ud) 3 ml INH RQID [facility] Last Admin: 12/12/16 11:20 Dose: 3 ml Albuterol/Ipratropium (Duoneb 3 Mg/0.5 Mg (3 Ml) Ud) 3 ml INH RQ6 PRN PRN Reason: Shortness of Breath Last Admin: 12/10/16 23:41 Dose: 3 ml Vancomycin HCl 750 mg/ Sodium (Chloride) 250 mls @ 166.667 mls/hr IVPB Q12 [facility] Last Admin: 12/12/16 08:59 Dose: 166.667 mls/hr Levofloxacin/Dextrose (Levaquin 750mg) 750 mg in 150 mls @ 100 mls/hr IVPB DAILY [facility] Last Admin: 12/12/16 08:59 Dose: 100 mls/hr Piperacillin Sod/Tazobactam Sod (Zosyn 3.375 Gm Iv Premix) 3.375 gm in 50 mls @ 50 mls/hr IVPB Q6 [facility] Last Admin: 12/12/16 09:00 Dose: 50 mls/hr Insulin Human Regular (Humulin R) 0 units SC ACCU-CHECK [facility] PRN Reason: Protocol Last Admin: 12/12/16 06:37 Dose: 1 unit Pantoprazole Sodium (Protonix Ec Tab) 40 mg PO DAILY [facility] Last Admin: 12/12/16 08:58 Dose: 40 mg Sitagliptin Phosphate (Januvia) 100 mg PO DAILY [facility] Last Admin: 12/12/16 08:58 Dose: 100 mg Venlafaxine HCl (Effexor Xr) 37.5 mg PO DAILY [facility] [place] Last Admin: 12/12/16 08:58 Dose: 37.5 mg - Labs Labs: 12/12/16 05:30 12/12/16 05:30 PT 14.0 Seconds (9.8-13.1) H 12/09/16 17:15 INR 1.2 (0.9-1.2) 12/09/16 17:15 APTT 29.4 Seconds (25.6-37.1) 12/09/16 17:15 Microbiology 12/09/16 18:21 Trachasp Gram Stain - Final 12/09/16 18:21 Trachasp Sputum Culture - Final NORMAL ORAL LESLEY 12/10/16 07:56 Urine,Zhang Urine Culture - Final Yeast Species 12/09/16 21:14 Decubitus - Sacral Area Gram Stain - Final 12/09/16 21:14 Decubitus - Sacral Area Wound Culture - Final Staphylococcus Aureus 12/09/16 16:30 Blood Blood Culture - Final Haemophilus Influenzae 12/09/16 16:30 Blood Gram Stain - Final 12/09/16 16:30 Blood Blood Culture - Final Haemophilus Influenzae 12/09/16 16:30 Blood Gram Stain - Final 12/10/16 18:30 Blood-Venous Blood Culture - Preliminary NO GROWTH AFTER 24 HOURS 12/10/16 18:15 Blood-Venous Blood Culture - Preliminary NO GROWTH AFTER 24 HOURS 12/09/16 19:15 Naris MRSA Culture (Admit) - Final MRSA NOT DETECTED No Known Allergies Allergy (Verified 04/27/16 16:30) - Constitutional Appears: Older Than Stated Age, Cachectic, Chronically Ill - Head Exam Head Exam: NORMAL INSPECTION - Eye Exam Eye Exam: Normal appearance - ENT Exam ENT Exam: Mucous Membranes Moist - Neck Exam Neck Exam: Normal Inspection - Respiratory Exam Additional comments: Still with dullness and markedly decreased breath sounds at right base with exp wheezing. Insp crackles both bases. Upper hdz clear but with diminished breath sounds. - Cardiovascular Exam Cardiovascular Exam: REGULAR RHYTHM, +S1, +S2 - GI/Abdominal Exam GI & Abdominal Exam: Soft - Exam Additional comments: Zhang intact. - Extremities Exam Additional comments: Mild=moderate contractures at both knees. Pain on motion of right hip. Dressings in place on heels and right posterior leg. Feet are warm but tender to touch. No palpable pulses. - Back Exam Additional comments: Unable to examine. See wound care notes. - Neurological Exam Neurological Exam: Alert, Awake - Psychiatric Exam Psychiatric exam: Flat Affect - Skin Skin Exam: Dry (See comments for back and extremities.), Normal Color, Warm Assessment and Plan (1) SIRS (systemic inflammatory response syndrome) Status: Resolved (2) Pneumonia Assessment & Plan: Slowly improving. Perhaps we can switch to nasal cannula by tomorrow. Status: Acute (3) CAD (coronary artery disease) Status: Chronic (4) Anemia Status: Acute (5) Diabetes mellitus Assessment & Plan: Controlled with glucoses about 140-160. Status: Chronic (6) Status post total hip replacement, right Assessment & Plan: Continues to have significant pain. Will get xray of right hip and both knees. Status: Acute (7) Decubitus skin ulcer Assessment & Plan: Continue plan of (1) Offload (2) adequate protein (3) maintain Hgb at leat at 10 (4) antibiotics Aggressive surgical intervention is not indicated in this member with serious medical and psychiatric morbidities. 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
--- NOTE | 2016-12-12 12:00 | RAD ---
HISTORY: PNEUMONIA COMPARISON: Chest x-ray performed 12/11/26 TECHNIQUE: Chest, one view. FINDINGS: Examination limited by patient obliquity. LUNGS: Increasing opacification of the right анна thorax may reflect combination of effusion and/or consolidation. Small left pleural effusion. Pulmonary venous congestion. Please note that chest x-ray has limited sensitivity for the detection of pulmonary masses. CARDIOVASCULAR: Obscured. Median sternotomy wires. Atherosclerotic calcifications. OSSEOUS STRUCTURES: Osseous demineralization. Scoliosis. Degenerative changes. VISUALIZED UPPER ABDOMEN: Unremarkable. OTHER FINDINGS: None. IMPRESSION: Increasing opacification of the right анна thorax may reflect combination of effusion and/or consolidation. Small left pleural effusion. Pulmonary venous congestion.
[2016-12-12 12:41] LABS: ANISOCYTOSIS SLIGHT; BANDS 1 % (0-2); LYMPHOCYTE 6 % (20-50); MONOCYTE 4 % (0-10); NEUTROPHIL 89 % (42-75); PLATELET ESTIMATE NORMAL (NORMAL); POIKILOCYTOSIS SLIGHT; TOTAL CELLS COUNTED 100
[2016-12-12 12:42] LABS: BURR CELLS SLIGHT; LARGE PLATELETS PRESENT; OVALOCYTES SLIGHT
--- NOTE | 2016-12-12 14:09 | CT ---
CT chest without IV contrast Indication: PNEUMONIA/PLEURAL EFFUSION Technique: Contiguous axial images were obtained through the chest without intravenous contrast enhancement. Sagittal and coronal reconstructions were generated and reviewed. This CT exam was performed using 1 or more of the falling dose reduction techniques: Automated exposure control, adjustment of the MAA and/or kV according to patient size, and/or use of iterative reconstruction technique. Radiation dose (DLP): 408.07 MGy-cm. Comparison: Chest x-ray performed earlier the same day and 12/11/16, CT of the chest without contrast performed 02/18/16 Findings: Examination limited by respiratory/ motion artifact. Visualized portions of the inferior thyroid gland appear unremarkable. Median sternotomy wires. Cardiomegaly. Moderate aortic valvular calcification. Mitral annulus calcification. Dense coronary artery calcifications. Dense aortic calcifications. Extensive consolidation within the right lung compatible with atelectasis. Presence of pneumonia cannot be excluded. Mild left subsegmental atelectasis. Small to moderate bilateral pleural effusions. Dependent left atelectasis. Evidence of right mainstem bronchial cut off just distal to the audelia. Limited visualization of the noncontrast upper abdomen appears grossly unremarkable. Acute appearing right anterior 1st and lateral 5th, 6th, 7th and 8th rib fractures. Multilevel chronic thoracic and upper lumbar vertebral body compression fracture deformities. Osseous demineralization. Scoliosis. Kyphosis. Impression: Extensive consolidation within the right lung compatible with atelectasis. Presence of pneumonia cannot be excluded. Mild left subsegmental atelectasis. Small to moderate bilateral pleural effusions. Dependent left atelectasis. Evidence of right mainstem bronchial cut off just distal to the audelia. Probable right mainstem endobronchial mucous plug. Acute appearing right anterior 1st and lateral 5th, 6th, 7th and 8th rib fractures. Multilevel chronic thoracic and upper lumbar vertebral body compression fracture deformities. Osseous demineralization. Median sternotomy wires. Cardiomegaly. Moderate aortic valvular calcification. Mitral annulus calcification. Dense coronary artery calcifications. Dense aortic calcifications. Additional findings as above. Preliminary impression was provided by virtual radiologic.
[2016-12-12] MEDS: Acetylcysteine 20% Inhal Soln (4ml) INH SCH (19:21)
[2016-12-13] MEDS: Albuterol-Ipratrop 3 mg / 0.5 (3 ml) UD INH PRN (03:15)
[2016-12-13] MEDS: Insulin Regular 100 units/ml SC SCH ×4 (06:36→23:06)
[2016-12-13 06:52] LABS: HEMOGLOBIN 11.3 g/dL (12.0-16.0); LYMPH # 0.5 K/uL (1.0-4.3); LYMPH % 3.4 % (20.0-40.0); MEAN CORPUSCULAR HEMOGLOBIN 27.1 pg (27.0-31.0); MEAN CORPUSCULAR HGB CONC 32.7 g/dL (33.0-37.0); MEAN PLATELET VOLUME 7.2 fl (7.2-11.7); MONO # 0.3 K/uL (0.0-0.8); MONO % 2.1 % (0.0-10.0); NEUT # 14.3 K/uL (1.8-7.0); NEUT % 94.5 % (50.0-75.0); PLATELET COUNT 328 K/uL (130-400); RBC 4.18 Mil/uL (3.80-5.20); RED CELL DISTRIBUTION WIDTH 16.3 % (11.5-14.5); WHITE BLOOD COUNT 15.2 K/uL (4.8-10.8)
[2016-12-13 07:20] LABS: BLOOD UREA NITROGEN 30 mg/dl (7-17); CALCIUM 8.8 mg/dL (8.4-10.2); GFR AFRICAN-AMERICAN > 60; GFR NON-AFRICAN AMERICAN > 60
[2016-12-13] MEDS: Acetylcysteine 20% Inhal Soln (4ml) INH SCH ×2 (07:34→19:35)
[2016-12-13] MEDS: Albuterol-Ipratrop 3 mg / 0.5 (3 ml) UD INH SCH ×4 (07:34→19:36)
[2016-12-13] MEDS: levoFLOXacin 750 mg in D5W 750 MG/150 ML BAG IVPB SCH (09:00)
[2016-12-13] MEDS ORDERED: cefTRIAXone 2 GM in Sodium Chloride 0.9% 100 ML IVPB SCH (09:00)
[2016-12-13] MEDS: Venlafaxine 37.5 mg ER Cap PO SCH (09:18)
[2016-12-13] MEDS: Pantoprazole 40 mg EC Tab PO SCH (09:21)
--- NOTE | 2016-12-13 09:28 | CP.PCM.PN ---
Subjective - Date & Time of Evaluation Date of Evaluation: 12/13/16 Time of Evaluation: 09:28 - Subjective Subjective: NO SOB AT REST STILL ON 100%NRB CTSCAN OF CHEST REVIEWED Objective - Vital Signs/Intake and Output Vital Signs (last 24 hours): Temp Pulse Resp BP Pulse Ox 96.5 F L 107 H 20 132/79 99 12/13/16 08:00 12/13/16 08:00 12/13/16 08:00 12/13/16 08:00 12/13/16 08:00 Intake and Output: 12/13/16 12/13/16 06:59 18:59 Intake Total 320 Output Total 700 Balance -380 - Medications Medications: Current Medications Acetaminophen (Tylenol 325mg Tab) 650 mg PO Q6 PRN PRN Reason: Fever >100.4 F Last Admin: 12/10/16 16:10 Dose: 650 mg Acetylcysteine (Acetylcysteine 20%) 2 ml INH RBID [facility] Last Admin: 12/13/16 07:34 Dose: 2 ml Albuterol/Ipratropium (Duoneb 3 Mg/0.5 Mg (3 Ml) Ud) 3 ml INH RQID [facility] Last Admin: 12/13/16 07:34 Dose: 3 ml Albuterol/Ipratropium (Duoneb 3 Mg/0.5 Mg (3 Ml) Ud) 3 ml INH RQ6 PRN PRN Reason: Shortness of Breath Last Admin: 12/13/16 03:15 Dose: 3 ml Vancomycin HCl 750 mg/ Sodium (Chloride) 250 mls @ 166.667 mls/hr IVPB Q12 [facility] Last Admin: 12/13/16 09:00 Dose: 166.667 mls/hr Levofloxacin/Dextrose (Levaquin 750mg) 750 mg in 150 mls @ 100 mls/hr IVPB DAILY [facility] Last Admin: 12/13/16 09:00 Dose: 100 mls/hr Ceftriaxone Sodium 2 gm/ (Sodium Chloride) 100 mls @ 100 mls/hr IVPB DAILY [facility] Insulin Human Regular (Humulin R) 0 units SC ACCU-CHECK [facility] PRN Reason: Protocol Last Admin: 12/13/16 06:36 Dose: Not Given Pantoprazole Sodium (Protonix Ec Tab) 40 mg PO DAILY [facility] Last Admin: 12/13/16 09:21 Dose: 40 mg Sitagliptin Phosphate (Januvia) 100 mg PO DAILY [facility] Last Admin: 12/13/16 09:18 Dose: 100 mg Venlafaxine HCl (Effexor Xr) 37.5 mg PO DAILY [facility] Last Admin: 12/13/16 09:18 Dose: 37.5 mg - Labs Labs: 12/13/16 05:05 12/13/16 05:05 PT 14.0 Seconds (9.8-13.1) H 12/09/16 17:15 INR 1.2 (0.9-1.2) 12/09/16 17:15 APTT 29.4 Seconds (25.6-37.1) 12/09/16 17:15 - Constitutional Appears: Chronically Ill - Head Exam Head Exam: ATRAUMATIC, NORMAL INSPECTION, NORMOCEPHALIC - Eye Exam Eye Exam: EOMI, Normal appearance, PERRL Pupil Exam: NORMAL ACCOMODATION, PERRL - ENT Exam ENT Exam: Mucous Membranes Moist, Normal Exam - Neck Exam Neck Exam: Full ROM, Normal Inspection. absent: Lymphadenopathy - Respiratory Exam Respiratory Exam: Decreased Breath Sounds, Prolonged Expiratory Phase, Rales, NORMAL BREATHING PATTERN - Cardiovascular Exam Cardiovascular Exam: REGULAR RHYTHM, +S1, +S2. absent: Murmur - GI/Abdominal Exam GI & Abdominal Exam: Soft, Normal Bowel Sounds. absent: Tenderness - Rectal Exam Rectal Exam: NORMAL INSPECTION - Extremities Exam Extremities Exam: Full ROM, Normal Capillary Refill. absent: Joint Swelling, Pedal Edema - Back Exam Back Exam: NORMAL INSPECTION - Neurological Exam Neurological Exam: Alert, Awake, CN II-XII Intact, Normal Gait, Oriented x3 - Psychiatric Exam Psychiatric exam: Normal Affect, Normal Mood - Skin Skin Exam: Dry, Intact, Normal Color, Warm Assessment and Plan - Assessment and Plan (Free Text) Assessment: PNEUMONIA-CLINICALLY IMPROVING MUCUS PLUGGING OF AIRWAYS Plan: ADD MUCOMYST TO RX SERIAL CXRS TOO SICK TO UNDERGO BRONCHOSCOPY WITHOUT ENDOTRACHEAL INTUBATION FOR NOW WILL CONTINUE PRESENT RX
[2016-12-13 10:40] LABS: ANISOCYTOSIS SLIGHT; LYMPHOCYTE 3 % (20-50); MONOCYTE 3 % (0-10); NEUTROPHIL 94 % (42-75); PLATELET ESTIMATE NORMAL (NORMAL); TOTAL CELLS COUNTED 100
[2016-12-13 10:41] LABS: HYPOCHROMIC SLIGHT; OVALOCYTES SLIGHT; SCHISTOCYTES SLIGHT; TOXIC GRANULATION PRESENT
--- NOTE | 2016-12-13 11:08 | CP.PCM.PN ---
Subjective - Date & Time of Evaluation Date of Evaluation: 12/13/16 Time of Evaluation: 11:08 - Subjective Subjective: Id Note- Pt. seen and examined in tele unit today. Pt. looks much more alert and states she feels fine. still has thick cough but less sob. her daughter is at bedside along with David the wound nurse who is changing the b/ l heel wound dressing. Objective - Vital Signs/Intake and Output Vital Signs (last 24 hours): Temp Pulse Resp BP Pulse Ox 96.5 F L 107 H 20 132/79 99 12/13/16 08:00 12/13/16 08:00 12/13/16 08:00 12/13/16 08:00 12/13/16 08:00 Intake and Output: 12/13/16 12/13/16 06:59 18:59 Intake Total 320 Output Total 700 Balance -380 - Medications Medications: Current Medications Acetaminophen (Tylenol 325mg Tab) 650 mg PO Q6 PRN PRN Reason: Fever >100.4 F Last Admin: 12/10/16 16:10 Dose: 650 mg Acetylcysteine (Acetylcysteine 20%) 2 ml INH RBID [facility] Last Admin: 12/13/16 07:34 Dose: 2 ml Albuterol/Ipratropium (Duoneb 3 Mg/0.5 Mg (3 Ml) Ud) 3 ml INH RQID [facility] Last Admin: 12/13/16 11:08 Dose: 3 ml Albuterol/Ipratropium (Duoneb 3 Mg/0.5 Mg (3 Ml) Ud) 3 ml INH RQ6 PRN PRN Reason: Shortness of Breath Last Admin: 12/13/16 03:15 Dose: 3 ml Vancomycin HCl 750 mg/ Sodium (Chloride) 250 mls @ 166.667 mls/hr IVPB Q12 [facility] Last Admin: 12/13/16 09:00 Dose: 166.667 mls/hr Levofloxacin/Dextrose (Levaquin 750mg) 750 mg in 150 mls @ 100 mls/hr IVPB DAILY [facility] Last Admin: 12/13/16 09:00 Dose: 100 mls/hr Ceftriaxone Sodium 2 gm/ (Sodium Chloride) 100 mls @ 100 mls/hr IVPB DAILY [facility] Insulin Human Regular (Humulin R) 0 units SC ACCU-CHECK [facility] PRN Reason: Protocol Last Admin: 12/13/16 06:36 Dose: Not Given Pantoprazole Sodium (Protonix Ec Tab) 40 mg PO DAILY [facility] Last Admin: 12/13/16 09:21 Dose: 40 mg Sitagliptin Phosphate (Januvia) 100 mg PO DAILY [facility] Last Admin: 12/13/16 09:18 Dose: 100 mg Venlafaxine HCl (Effexor Xr) 37.5 mg PO DAILY [facility] Last Admin: 12/13/16 09:18 Dose: 37.5 mg - Labs Labs: - Additional Findings Additional findings: - Constitutional Appears: Cachectic, Chronically Ill - Head Exam Head Exam: ATRAUMATIC - Eye Exam Eye Exam: EOMI, PERRL - ENT Exam Additional comments: dry oral mucosa - Respiratory Exam Respiratory Exam: NORMAL BREATHING PATTERN Additional comments: decreased breath sounds right lung from base to mid lung field , no wheezing - Cardiovascular Exam Cardiovascular Exam: RRR, +S1, +S2 - GI/Abdominal Exam GI & Abdominal Exam: Normal Bowel Sounds, Soft Additional comments: NT, ND - Extremities Exam Additional comments: no edema b/l LE b/l heels with necrotic black eschar right heel worse than the left and she also has nonhealing dry open wound from above her right heel extending to mid- calf region posteriorly,however this wound looks better compared to admission and has pink granulation tissue her right hip surgical site is clean and well healed, no erythema - Neurological Exam Neurological exam: Alert Additional comments: oriented x 3 - Skin Additional comments: mid back with small round erythema and opening without any discharge and mid sacral region with very small opening stage 1 ulcer, scant yellow discharge Laboratory Results - last 72 hr 12/09/16 12/09/16 12/09/16 10:30 17:25 21:14 WBC RBC Hgb Hct MCV MCH MCHC RDW Plt Count MPV Neut % (Auto) Lymph % (Auto) [facility] % (Auto) Eos % (Auto) Baso % (Auto) Neut # Lymph # [facility] [place] # Eos # Baso # Neutrophils % (Manual) Band Neutrophils % Lymphocytes % (Manual) Monocytes % (Manual) Toxic Granulation Platelet Estimate Large Platelets Giant Platelets Hypochromasia (manual) Poikilocytosis (manual Anisocytosis (manual) Ovalocytes Goodspring Cells Schistocytes ESR pCO2 pO2 HCO3 ABG pH ABG Total CO2 ABG O2 Saturation ABG O2 Content ABG Base Excess ABG Hemoglobin ABG Carboxyhemoglobin POC ABG HHb (Measured) ABG Methemoglobin ABG O2 Capacity Best Test A-a O2 Difference Hgb O2 Saturation Vent Mode FiO2 Sodium Potassium Chloride Carbon Dioxide Anion Gap BUN Creatinine Est GFR ( Amer) Est GFR (Non-Af Amer) POC Glucose (mg/dL) Random Glucose Calcium Vancomycin Trough Urine Legionella Ag Not detected Mycoplasma pneumon IgM 135 Crossmatch See Detail 12/10/16 12/10/16 12/10/16 15:38 18:35 22:22 WBC RBC Hgb Hct MCV MCH MCHC RDW Plt Count MPV Neut % (Auto) Lymph % (Auto) [facility] [place] % (Auto) Eos % (Auto) Baso % (Auto) Neut # Lymph # [facility] # Eos # Baso # Neutrophils % (Manual) Band Neutrophils % Lymphocytes % (Manual) Monocytes % (Manual) Toxic Granulation Platelet Estimate Large Platelets Giant Platelets Hypochromasia (manual) Poikilocytosis (manual Anisocytosis (manual) Ovalocytes Goodspring Cells Schistocytes ESR 74 H pCO2 pO2 HCO3 ABG pH ABG Total CO2 ABG O2 Saturation ABG O2 Content ABG Base Excess ABG Hemoglobin ABG Carboxyhemoglobin POC ABG HHb (Measured) ABG Methemoglobin ABG O2 Capacity Best Test A-a O2 Difference Hgb O2 Saturation Vent Mode FiO2 Sodium Potassium Chloride Carbon Dioxide Anion Gap BUN Creatinine Est GFR ( Amer) Est GFR (Non-Af Amer) POC Glucose (mg/dL) 161 H 94 Random Glucose Calcium Vancomycin Trough Urine Legionella Ag Mycoplasma pneumon IgM Crossmatch 12/11/16 12/11/16 12/11/16 05:16 05:30 05:30 WBC 21.6 H RBC 3.78 L Hgb 10.1 L Hct 31.3 L MCV 82.7 MCH 26.8 L MCHC 32.4 L RDW 15.9 H Plt Count 314 MPV 7.2 Neut % (Auto) 95.5 H Lymph % (Auto) 2.[address] [place] % (Auto) 2.2 Eos % (Auto) 0.0 Baso % (Auto) 0.1 Neut # 20.6 H Lymph # 0.[address] [place] # 0.5 Eos # 0.0 Baso # 0.0 Neutrophils % (Manual) 91 H Band Neutrophils % 2 Lymphocytes % (Manual) 4 L Monocytes % (Manual) 3 Toxic Granulation Platelet Estimate Normal Large Platelets Present Giant Platelets Present Hypochromasia (manual) Slight Poikilocytosis (manual Slight Anisocytosis (manual) Slight Ovalocytes Slight Goodspring Cells Slight Schistocytes ESR pCO2 45 pO2 71 L HCO3 24.1 ABG pH 7.35 ABG Total CO2 26.2 ABG O2 Saturation 96.2 ABG O2 Content 14.2 L ABG Base Excess -1.0 ABG Hemoglobin 10.8 L ABG Carboxyhemoglobin 1.4 POC ABG HHb (Measured) 3.7 ABG Methemoglobin 1.8 ABG O2 Capacity 14.8 L Best Test Yes A-a O2 Difference 586.0 Hgb O2 Saturation 93.1 L Vent Mode Nrb FiO2 100.0 Sodium 144 Potassium 3.2 L Chloride 108 H Carbon Dioxide 25 Anion Gap 14 BUN 38 H Creatinine 0.9 Est GFR ( Amer) > 60 Est GFR (Non-Af Amer) > 60 POC Glucose (mg/dL) Random Glucose 95 Calcium 8.5 Vancomycin Trough Urine Legionella Ag Mycoplasma pneumon IgM Crossmatch 12/11/16 12/11/16 12/11/16 05:30 06:05 11:59 WBC RBC Hgb Hct MCV MCH MCHC RDW Plt Count MPV Neut % (Auto) Lymph % (Auto) [facility] [place] % (Auto) Eos % (Auto) Baso % (Auto) Neut # Lymph # [facility] # Eos # Baso # Neutrophils % (Manual) Band Neutrophils % Lymphocytes % (Manual) Monocytes % (Manual) Toxic Granulation Platelet Estimate Large Platelets Giant Platelets Hypochromasia (manual) Poikilocytosis (manual Anisocytosis (manual) Ovalocytes Goodspring Cells Schistocytes ESR pCO2 pO2 HCO3 ABG pH ABG Total CO2 ABG O2 Saturation ABG O2 Content ABG Base Excess ABG Hemoglobin ABG Carboxyhemoglobin POC ABG HHb (Measured) ABG Methemoglobin ABG O2 Capacity Best Test A-a O2 Difference Hgb O2 Saturation Vent Mode FiO2 Sodium Potassium Chloride Carbon Dioxide Anion Gap BUN Creatinine Est GFR ( Amer) Est GFR (Non-Af Amer) POC Glucose (mg/dL) 107 171 H Random Glucose Calcium Vancomycin Trough 14.9 H Urine Legionella Ag Mycoplasma pneumon IgM Crossmatch 12/11/16 12/11/16 12/12/16 15:57 22:19 05:13 WBC RBC Hgb Hct MCV MCH MCHC RDW Plt Count MPV Neut % (Auto) Lymph % (Auto) [facility] [place] % (Auto) Eos % (Auto) Baso % (Auto) Neut # Lymph # [facility] # Eos # Baso # Neutrophils % (Manual) Band Neutrophils % Lymphocytes % (Manual) Monocytes % (Manual) Toxic Granulation Platelet Estimate Large Platelets Giant Platelets Hypochromasia (manual) Poikilocytosis (manual Anisocytosis (manual) Ovalocytes Goodspring Cells Schistocytes ESR pCO2 pO2 HCO3 ABG pH ABG Total CO2 ABG O2 Saturation ABG O2 Content ABG Base Excess ABG Hemoglobin ABG Carboxyhemoglobin POC ABG HHb (Measured) ABG Methemoglobin ABG O2 Capacity Best Test A-a O2 Difference Hgb O2 Saturation Vent Mode FiO2 Sodium Potassium Chloride Carbon Dioxide Anion Gap BUN Creatinine Est GFR ( Amer) Est GFR (Non-Af Amer) POC Glucose (mg/dL) 149 H 140 H 168 H Random Glucose Calcium Vancomycin Trough Urine Legionella Ag Mycoplasma pneumon IgM Crossmatch 12/12/16 12/12/16 12/12/16 05:30 05:30 05:40 WBC 18.4 H RBC 3.84 Hgb 10.3 L Hct 31.8 L MCV 82.7 MCH 26.7 L MCHC 32.3 L RDW 16.3 H Plt Count 320 MPV 7.3 Neut % (Auto) 93.1 H Lymph % (Auto) 3.[address] [place] % (Auto) 2.9 Eos % (Auto) 0.0 Baso % (Auto) 0.2 Neut # 17.1 H Lymph # 0.[address] [place] # 0.5 Eos # 0.0 Baso # 0.0 Neutrophils % (Manual) 89 H Band Neutrophils % 1 Lymphocytes % (Manual) 6 L Monocytes % (Manual) 4 Toxic Granulation Platelet Estimate Normal Large Platelets Present Giant Platelets Hypochromasia (manual) Poikilocytosis (manual Slight Anisocytosis (manual) Slight Ovalocytes Slight Goodspring Cells Slight Schistocytes ESR pCO2 48 H pO2 90 HCO3 25.8 ABG pH 7.36 ABG Total CO2 28.6 H ABG O2 Saturation 98.4 H ABG O2 Content 14.4 L ABG Base Excess 1.2 ABG Hemoglobin 10.6 L ABG Carboxyhemoglobin 1.0 POC ABG HHb (Measured) 1.6 ABG Methemoglobin 1.6 ABG O2 Capacity 14.6 L Best Test Yes A-a O2 Difference 563.0 Hgb O2 Saturation 95.7 Vent Mode FiO2 100.0 Sodium 145 Potassium 3.6 Chloride 110 H Carbon Dioxide 25 Anion Gap 14 BUN 32 H Creatinine 0.7 Est GFR ( Amer) > 60 Est GFR (Non-Af Amer) > 60 POC Glucose (mg/dL) Random Glucose 142 H Calcium 8.6 Vancomycin Trough Urine Legionella Ag Mycoplasma pneumon IgM Crossmatch 12/12/16 12/12/16 12/12/16 11:10 15:55 21:06 WBC RBC Hgb Hct MCV MCH MCHC RDW Plt Count MPV Neut % (Auto) Lymph % (Auto) [facility] [place] [facility] % (Auto) Eos % (Auto) Baso % (Auto) Neut # Lymph # [facility] # Eos # Baso # Neutrophils % (Manual) Band Neutrophils % Lymphocytes % (Manual) Monocytes % (Manual) Toxic Granulation Platelet Estimate Large Platelets Giant Platelets Hypochromasia (manual) Poikilocytosis (manual Anisocytosis (manual) Ovalocytes Goodspring Cells Schistocytes ESR pCO2 pO2 HCO3 ABG pH ABG Total CO2 ABG O2 Saturation ABG O2 Content ABG Base Excess ABG Hemoglobin ABG Carboxyhemoglobin POC ABG HHb (Measured) ABG Methemoglobin ABG O2 Capacity Best Test A-a O2 Difference Hgb O2 Saturation Vent Mode FiO2 Sodium Potassium Chloride Carbon Dioxide Anion Gap BUN Creatinine Est GFR ( Amer) Est GFR (Non-Af Amer) POC Glucose (mg/dL) 148 H 169 H 170 H Random Glucose Calcium Vancomycin Trough Urine Legionella Ag Mycoplasma pneumon IgM Crossmatch 12/13/16 12/13/16 12/13/16 05:05 05:05 05:05 WBC 15.2 H RBC 4.18 Hgb 11.3 L Hct 34.7 MCV 83.0 MCH 27.1 MCHC 32.7 L RDW 16.3 H Plt Count 328 MPV 7.2 Neut % (Auto) 94.5 H Lymph % (Auto) 3.[address] [place] % (Auto) 2.1 Eos % (Auto) 0.0 Baso % (Auto) 0.0 Neut # 14.3 H Lymph # 0.[address] [facility] # 0.3 Eos # 0.0 Baso # 0.0 Neutrophils % (Manual) 94 H Band Neutrophils % Lymphocytes % (Manual) 3 L Monocytes % (Manual) 3 Toxic Granulation Present Platelet Estimate Normal Large Platelets Giant Platelets Hypochromasia (manual) Slight Poikilocytosis (manual Anisocytosis (manual) Slight Ovalocytes Slight Goodspring Cells Schistocytes Slight ESR pCO2 pO2 HCO3 ABG pH ABG Total CO2 ABG O2 Saturation ABG O2 Content ABG Base Excess ABG Hemoglobin ABG Carboxyhemoglobin POC ABG HHb (Measured) ABG Methemoglobin ABG O2 Capacity Best Test A-a O2 Difference Hgb O2 Saturation Vent Mode FiO2 Sodium 144 Potassium 3.6 Chloride 107 Carbon Dioxide 27 Anion Gap 15 BUN 30 H Creatinine 0.7 Est GFR ( Amer) > 60 Est GFR (Non-Af Amer) > 60 POC Glucose (mg/dL) Random Glucose 218 H Calcium 8.8 Vancomycin Trough 15.4 H Urine Legionella Ag Mycoplasma pneumon IgM Crossmatch 12/13/16 12/13/16 05:06 11:25 WBC RBC Hgb Hct MCV MCH MCHC RDW Plt Count MPV Neut % (Auto) Lymph % (Auto) [facility] % (Auto) Eos % (Auto) Baso % (Auto) Neut # Lymph # [facility] # Eos # Baso # Neutrophils % (Manual) Band Neutrophils % Lymphocytes % (Manual) Monocytes % (Manual) Toxic Granulation Platelet Estimate Large Platelets Giant Platelets Hypochromasia (manual) Poikilocytosis (manual Anisocytosis (manual) Ovalocytes Goodspring Cells Schistocytes ESR pCO2 pO2 HCO3 ABG pH ABG Total CO2 ABG O2 Saturation ABG O2 Content ABG Base Excess ABG Hemoglobin ABG Carboxyhemoglobin POC ABG HHb (Measured) ABG Methemoglobin ABG O2 Capacity Best Test A-a O2 Difference Hgb O2 Saturation Vent Mode FiO2 Sodium Potassium Chloride Carbon Dioxide Anion Gap BUN Creatinine Est GFR ( Amer) Est GFR (Non-Af Amer) POC Glucose (mg/dL) 226 H 235 H Random Glucose Calcium Vancomycin Trough Urine Legionella Ag Mycoplasma pneumon IgM Crossmatch Microbiology 12/09/16 16:30 Blood Blood Culture - Final Haemophilus Influenzae 12/09/16 16:30 Blood Gram Stain - Final 12/10/16 18:30 Blood-Venous Blood Culture - Preliminary NO GROWTH AFTER 48 HOURS 12/10/16 18:15 Blood-Venous Blood Culture - Preliminary NO GROWTH AFTER 48 HOURS 12/09/16 18:21 Trachasp Gram Stain - Final 12/09/16 18:21 Trachasp Sputum Culture - Final NORMAL ORAL LESLEY 12/10/16 07:56 Urine,Zhang Urine Culture - Final Yeast Species 12/09/16 21:14 Decubitus - Sacral Area Gram Stain - Final 12/09/16 21:14 Decubitus - Sacral Area Wound Culture - Final Staphylococcus Aureus 12/09/16 16:30 Blood Blood Culture - Final Haemophilus Influenzae 12/09/16 16:30 Blood Gram Stain - Final 12/09/16 19:15 Naris MRSA Culture (Admit) - Final MRSA NOT DETECTED Accession No. : [id number] Patient Name / ID : OLIVER KENNEDY / [id number] Exam Date : 12/13/2016 09:19:37 ( Approved ) Study Comment : Sex / Age : F / 81Y Creator : Amaury Webb MD Dictator : Amaury Webb MD Product Support Sales Representative : Electric Meter Repairer : Amaury Webb MD Approver2 : Report Date : 12/13/2016 11:06:13 My Comment : PROCEDURE: CHEST RADIOGRAPH, 1 VIEW HISTORY: mucous plug COMPARISON: 12/12/2016 FINDINGS: LUNGS: Complete opacification of right анна thorax, consolidation and/or pleural effusion suspected. No left-sided pulmonary infiltrate. PLEURA: Complete opacification of right анна thorax. Likely pleural effusion. Possible very small left pleural effusion. No pneumothorax. CARDIOVASCULAR: Limited evaluation. Oblique positioning. Sternotomy wires noted. OSSEOUS STRUCTURES: No significant abnormalities. VISUALIZED UPPER ABDOMEN: Normal. OTHER FINDINGS: None. IMPRESSION: Opacification of right анна thorax. Pleural effusion and/. Possible very small left pleural effusion. Assessment and Plan (1) Pneumonia Status: Acute (2) SIRS (systemic inflammatory response syndrome) Status: Resolved (3) Decubitus skin ulcer Status: Acute (4) COPD (chronic obstructive pulmonary disease) Status: Chronic (5) Leukocytosis Status: Acute (6) Nonhealing ulcer of heel Status: Acute - Assessment and Plan (Free Text) Assessment: A/P- 81 year old female with multiple medical conditions including CAD s/p MVR and stent, COPD, DM II, nonhealing necrotic heel wounds admitted with fever, leukocytosis found to have RML pneumonia. clinically improved . afebrile leukocytosis trending down. cxr- almost white out of right lung, blood cx from 12/09/2016- reported yesterday as H.Influenza x 2 repeat blood cx- neg x 2 decub cx- MSSA urine cx- yeast TTE- no mention of any vegetations. 1. pneumonia 2.nonhealing necrotic heel ulcers and right heel extending to posterior right calf region 3. COPD 4.DM II plan- completed 5 days of IV zosyn for pneumonia. in light of the H.Inlfuenza bactermia d/c zosyn and started IV ceftriaxone as the H.Influenza is sens to this based on micro report. advise to continue with levaquin for 2 more days. advise to continue with IV vanco for her decub MSSA and to help wih the b/l necrotic heels. day #5. Keep trough <15. monitor aspiration precautions. wound care as per wound nurse. as per conservative wound management as per wound nurse . All above d/w patient and her daughter who is at bedside.
--- NOTE | 2016-12-13 11:11 | RAD ---
PROCEDURE: CHEST RADIOGRAPH, 1 VIEW HISTORY: mucous plug COMPARISON: 12/12/2016 FINDINGS: LUNGS: Complete opacification of right анна thorax, consolidation and/or pleural effusion suspected. No left-sided pulmonary infiltrate. PLEURA: Complete opacification of right анна thorax. Likely pleural effusion. Possible very small left pleural effusion. No pneumothorax. CARDIOVASCULAR: Limited evaluation. Oblique positioning. Sternotomy wires noted. OSSEOUS STRUCTURES: No significant abnormalities. VISUALIZED UPPER ABDOMEN: Normal. OTHER FINDINGS: None. IMPRESSION: Opacification of right анна thorax. Pleural effusion and/. Possible very small left pleural effusion.
--- NOTE | 2016-12-13 13:51 | CP.PCM.PN ---
Subjective - Date & Time of Evaluation Date of Evaluation: 12/13/16 Time of Evaluation: 13:39 - Subjective Subjective: Patient is looking a bit better. Breathing easily on Venti-mask with 35% oxygen. Dr. Jurado's note appreciated. Will discuss plan of care with him. Patient is not moving much in bed, and needs maximal encouragement to eat. Her daughter has been working on this, and patient is taking the Glucerna tid. The right foot is cool, but the question of what to do is not clear. Patient has not walked for more than a year - even before she fractured her right hip she was not walking. Decubitus ulcers present since her last hospitalization in the winter [id number] have never healed due to the fact that she has been lying in bed motionless both in the snf and at home. In spite of this, some gains have been made with meticulous wound care employing Leroy. I am ordering plain films of the right hip/pelvis, the right tibia/fibula, and both feet. I do not believe patient would tolerate CT or mri at this time. Depression remains a big problem. Effexor-XR 37.5mg daily was just restarted and will take time to be effective. Elevated vancomycin trough level noted. Will await adjustment in dosing by Dr. Romano. Diabetes is fairly controlled, but glucoses are around 200. Will add Levemir 2.5mg qhs. Objective - Vital Signs/Intake and Output Vital Signs (last 24 hours): Temp Pulse Resp BP Pulse Ox 96.5 F L 107 H 20 132/79 99 12/13/16 08:00 12/13/16 08:00 12/13/16 08:00 12/13/16 08:00 12/13/16 08:00 Intake and Output: 12/13/16 12/13/16 06:59 18:59 Intake Total 320 Output Total 700 Balance -380 - Medications Medications: Current Medications Acetaminophen (Tylenol 325mg Tab) 650 mg PO Q6 PRN PRN Reason: Fever >100.4 F Last Admin: 12/10/16 16:10 Dose: 650 mg Acetylcysteine (Acetylcysteine 20%) 2 ml INH RBID [facility] Last Admin: 12/13/16 07:34 Dose: 2 ml Albuterol/Ipratropium (Duoneb 3 Mg/0.5 Mg (3 Ml) Ud) 3 ml INH RQID [facility] Last Admin: 12/13/16 11:08 Dose: 3 ml Albuterol/Ipratropium (Duoneb 3 Mg/0.5 Mg (3 Ml) Ud) 3 ml INH RQ6 PRN PRN Reason: Shortness of Breath Last Admin: 12/13/16 03:15 Dose: 3 ml Vancomycin HCl 750 mg/ Sodium (Chloride) 250 mls @ 166.667 mls/hr IVPB Q12 [facility] Last Admin: 12/13/16 09:00 Dose: 166.667 mls/hr Levofloxacin/Dextrose (Levaquin 750mg) 750 mg in 150 mls @ 100 mls/hr IVPB DAILY [facility] Last Admin: 12/13/16 09:00 Dose: 100 mls/hr Ceftriaxone Sodium 2 gm/ (Sodium Chloride) 100 mls @ 100 mls/hr IVPB DAILY [facility] Insulin Human Regular (Humulin R) 0 units SC ACCU-CHECK [facility] PRN Reason: Protocol Last Admin: 12/13/16 06:36 Dose: Not Given Pantoprazole Sodium (Protonix Ec Tab) 40 mg PO DAILY [facility] Last Admin: 12/13/16 09:21 Dose: 40 mg Sitagliptin Phosphate (Januvia) 100 mg PO DAILY [facility] Last Admin: 12/13/16 09:18 Dose: 100 mg Venlafaxine HCl (Effexor Xr) 37.5 mg PO DAILY [facility] Last Admin: 12/13/16 09:18 Dose: 37.5 mg - Labs Labs: 12/13/16 05:05 12/13/16 05:05 PT 14.0 Seconds (9.8-13.1) H 12/09/16 17:15 INR 1.2 (0.9-1.2) 12/09/16 17:15 APTT 29.4 Seconds (25.6-37.1) 12/09/16 17:15 - Constitutional Appears: Older Than Stated Age, Chronically Ill - Head Exam Head Exam: NORMAL INSPECTION - Eye Exam Eye Exam: Normal appearance - ENT Exam ENT Exam: Mucous Membranes Moist - Neck Exam Neck Exam: Normal Inspection - Respiratory Exam Additional comments: Somewhat improved, but still markedly decreased, breathsounds at right base with prolonged expiration. . Instpiratory crackes both bases. Ckear upper lung hdz. - Cardiovascular Exam Cardiovascular Exam: REGULAR RHYTHM, +S1, +S2 - GI/Abdominal Exam GI & Abdominal Exam: Soft - Extremities Exam Additional comments: Right foot is definitely cooler than left. No edema. Dressings intact both heels and right posterior calf area. (see notes by Aline Hassan RN) - Back Exam Additional comments: Erythema and areas of ulceration as previously described. Marked spinal deformities. - Neurological Exam Additional comments: Patient is arousable but is not very cooperative with eating, turning, etc. This is not much changed from before and reflects an element of dementia. - Psychiatric Exam Psychiatric exam: Depressed, Flat Affect - Skin Additional comments: See extremities and back. Otherwise skin is normal. Assessment and Plan (1) Pneumonia Assessment & Plan: Making slow progress - on iv antibiotics and oxygen. Status: Acute (2) CAD (coronary artery disease) Assessment & Plan: Stable. Unable to tolerate anticoagulation because of hx of erosive gastritis and severe anemia requiring transfusion of rbcs. Status: Chronic (3) Anemia Assessment & Plan: Currently Hgb is 11.3 (post transfusion). Will follow this. Continue Protonix. Status: Acute (4) Diabetes mellitus Assessment & Plan: Needs better control. Levemir 2.5 mg sq qhs ordered. She is on Januvia 100mg daily and on insulin coverage. Status: Chronic (5) Status post total hip replacement, right Assessment & Plan: There is a quesion of why the severe right hip pain so long after THR. Will get plain film of hip/pelvis for now, and then see if orthopedic consultation should be obtained. Status: Acute (6) Decubitus skin ulcer Assessment & Plan: Continue current wound care and offloading. Will get plain films to try to addess status of right posterior tib/fib and both heels as it is unlikely that patient would tolerate CT or MRI at this time. Status: Acute (7) Neurogenic bladder Assessment & Plan: Continue Zhang catheter & change q 1 month. Status: Chronic (8) Neurogenic bladder, flaccid Status: Chronic (9) CVA, old, ataxia Status: Chronic (10) Chronic depression Status: Acute
[2016-12-13] MEDS ORDERED: Insulin Detemir 100 Units/ml Inj SC SCH (22:00)
[2016-12-13 23:51] VITALS: BP 119/69; PULSE 109; RESP 16; TEMP 97.6; O2SAT 90
--- NOTE | 2016-12-14 02:18 | CP.PCM.PRO ---
Pronouncement of Note - Clinical Findings Physical Exam: No Response Verbal/Painful Stimuli, Absent Peripheral Pulses{ Carotid & Femoral}, No Pupillary Light Reflex, Absence of Vital Signs - Pronouncement Time Time of Pronouncement of : 02:04 - Notifications Wild Animal Caretaker Notified: No - Autopsy Autopsy Requested: No - N.JDeng Certificate [place]: [id number]
--- NOTE | 2016-12-15 16:30 | PN ---
Patient is in ICU bed for 24 minutes and time spent with patient was 35 minutes. Patient is seen and evaluated at the bedside,events sinceadmission and clinical reviewed. Past medical, surgical, and social history: Patient is a 81 year-old female who is a former smoker, with severe chronic pulmonary disease, coronary artery disease status post coronary bypass graft surgery and since then, she has been chair and bed bound with sacral decubitus ulcer._ She was admitted _ with fever , chills and cough. Her chest x-ray shows ___ infiltrate requiring highoxygen supplement. She is currently on 100 percent ,tachycardic.. This morning, she was alert and awake. She follows commands. At times, agitated_ Vital signs: 98.7. Heart rate is 102-109. Her blood pressure is regular and 135 /66. ___18.09 Her respiratory rate is 16-25. Her oxygen saturation is 100 percent.intake 1929 status post transfusion _2units of prbc Examination: HEENT: Her pupils are equal, round and reactive to light.Sclera is white. Her neck is supple. Trachea is central and chests bilateral breath sounds diminished i intensity. Clear to auscultation.Heart rhythm_ regular. Mild tachycardia. Abdominal bowel sounds presenet.,nontender. Extremities: No palpable cold or cyanosis. NeuroExamination: GCS 15.nonfocal. Current medications: Zosyn 3.75 mg qid, [id number] IV q12, omeprazole_20 mg once daily, . Lab: [id number], Hemoglobin: 10.1, Hematocrit: 31.3, _[id number] _Na+144 _K+3.2 _ microbiology __ culture no growth reported. Impression:_ septic/metabolic encephalopathy_ improving , remains confused. She is agitated at times _ respiratory failure ,_ pneumonia on antibiotic _ Cardiac : history of coronary artery diseases status post coronary bypass graft surgery. stable with mild tachycardia. Endocrine: Type 2 diabetes mellitus, continue_ with regular insulin and 1800 calorie diabetic maintain blood sugar 180 mg,ID: right _lungpneumonia ,bilateral non healing of the hips, sacral skin breakdown, on antibiotics.Endocrine : GI: On PPI for prophylaxis.keep HOB 30 degree to prevent aspiration s. Maintain blood sugar less than 180 mg or consider physical therapy once patient becomes more clinically stable. Preet Moyer MDD
--- NOTE | 2016-12-21 13:35 | CP.PCM.PN ---
Subjective - Date & Time of Evaluation Date of Evaluation: 12/11/16 - Subjective Subjective: Patient is in ICU bed 424; time spent with patient was 35 minutes. Patient was seen and evaluated at the bedside. Events since admission and clinical course reviewed. Past medical, surgical, and social history noted. Patient is a 81 y/o F who is a former smoker, with severe COPD, CAD S/P coronary bypass graft surgery and mitral valve surgery. She was recently admitted for hip surgery and since then, she has been bed and chair bound with sacral decubitus ulcer and B/L known healing ulcers over hips. She was admitted with fever, chills and cough. Objective - Vital Signs/Intake and Output Vital Signs (last 24 hours): Temp Pulse Resp BP Pulse Ox 97.6 F 109 H 16 119/69 90 L 12/13/16 23:50 12/13/16 23:50 12/13/16 23:50 12/13/16 23:50 12/13/16 23:50 - Labs Labs: 12/13/16 05:05 12/13/16 05:05 PT 14.0 Seconds (9.8-13.1) H 12/09/16 17:15 INR 1.2 (0.9-1.2) 12/09/16 17:15 APTT 29.4 Seconds (25.6-37.1) 12/09/16 17:15 WBC: 21.6 Hemoglobin: 10.1 Hematocrit: 31.3 Platelet count: 314 Neutrophils: 95.5 Lymphocytes: 2.2 Monocytes: 2.2 PT/INR: 14, 1.2 PTT: 29.4 ABG pH: 7.3 pCO2: 45 pO2: 71 on non-rebreather at 100% Sodium: 144 Potassium: 3.2 Chloride: 108 CO2: 25 BUN: 38 Creatinine: 0.9 Calcium: 8.5 Urinalysis Leukocytes: Moderate Micro WBC: 43 ____ Vancomycin: 14.9 Serology: AB- Microbiology: Wound culture: positive for gram + cocci and clusters Blood culture: No growth reported - Additional Findings Additional findings: CXR: RT middle lobe infiltrate requiring a higher oxygen supplement. She is currently on 100% non-rebreather. Overnight afebrile. Normotensive. Telemetry sinus tachycardia. This morning, she was alert and awake. She follows commands. At times, agitated. Vital signs: Temperature: 98.7 Heart rate: 102-109 BP: regular and 135/66 Mean aterial pressure: 89 RR: 16-25. O2 sat: 100 percent on non-rebreather Intake: 1929 Output: 1550 Positive balance: 379 S/P transfusion three units of packed RBC HEENT: PEERL. Conjunctiva pale. Sclera is white. Neck: Supple. Trachea is central. Chest: B/L breath sounds diminished in intensity. Scattered crepitations at the bases. Heart: Rhythm regular. Mild tachycardia. Abdomen: Bowel sounds present. Soft. Extremities: No palpable cold. No cyanosis. Neuro: GCS = 15. Normal person impairment. Skin: Warm, no rash. HEENT: PEERL. Conjunctiva pale. Sclera is white. Neck: Supple. Trachea is central. Chest: B/L breath sounds diminished in intensity. Scattered crepitations at the bases. Heart: Rhythm regular. Mild tachycardia. Abdomen: Bowel sounds present. Soft. Extremities: No palpable cold. No cyanosis. Neuro: GCS = 15. Normal person impairment. Skin: Warm, no rash. Assessment and Plan - Assessment and Plan (Free Text) Assessment: Neuro: septic/metabolic encephalopathy, improving. Still remains confused. Agitated at times. Permenantly hypoxic respiratory failure, RT middle lobe PNA on Vanco, Zosyn and Levofloxacin Cardiac: Hx of CAD S/P CABG, mitral valve replacement. Remains stable with mild tachycardia. Endocrine: Type 2 DM on accu-check with regular insulin and Januvia. 1800 calorie diabetic diet would be better to maintain BGL below 180 mg. Infectious disease: RT mid lobe PNA. B/L known healing ulcers of the hips. Sacral stage I ulcer on Abx, appreciate ID input. GI: On Protonix for prophylaxis Plan: 1. Keep head of bed levated 30 degrees to prevent aspiration. 2. DVT prophylaxis. 3. Maintain blood sugar less than 180 mg. 4. Consider physical therapy once patient becomes more clinically stable.
== END 2016-12-14 02:04 | DRG 871 ==
LOC: H.ER 15:31 → H.ERHOLD 17:10 → H.ICU/CCU 18:57 → H.TEL 12-12 00:10
PROVIDERS: ADMIT Internal Medicine; ATTEND Internal Medicine
PROC: 30233N1 Transfusion of Nonautologous Red Blood Cells into Peripheral Vein, Percutaneous Approach (ICD-10-PCS; principal; 2016-12-09)
DX: A41.3 Sepsis due to Hemophilus influenzae (principal); J96.91 Respiratory failure, unspecified with hypoxia; R65.21 Severe sepsis with septic shock; G93.41 Metabolic encephalopathy; J15.9 Unspecified bacterial pneumonia; E87.2 Acidosis; R64 Cachexia; L89.151 Pressure ulcer of sacral region, stage 1; N39.0 Urinary tract infection, site not specified; J44.1 Chronic obstructive pulmonary disease with (acute) exacerbation; J98.11 Atelectasis; Z68.1 Body mass index [BMI] 19.9 or less, adult; D64.9 Anemia, unspecified; L97.919 Non-pressure chronic ulcer of unspecified part of right lower leg with unspecified severity; F03.90 Unspecified dementia, unspecified severity, without behavioral disturbance, psychotic disturbance, mood disturbance, and anxiety; E86.0 Dehydration; E87.6 Hypokalemia; I25.10 Atherosclerotic heart disease of native coronary artery without angina pectoris; F31.9 Bipolar disorder, unspecified; E86.1 Hypovolemia; Z99.81 Dependence on supplemental oxygen; N31.2 Flaccid neuropathic bladder, not elsewhere classified; L89.629 Pressure ulcer of left heel, unspecified stage; L89.619 Pressure ulcer of right heel, unspecified stage; B95.61 Methicillin susceptible Staphylococcus aureus infection as the cause of diseases classified elsewhere; E11.622 Type 2 diabetes mellitus with other skin ulcer; I69.393 Ataxia following cerebral infarction; T17.990A Other foreign object in respiratory tract, part unspecified in causing asphyxiation, initial encounter; Z66 Do not resuscitate; R33.8 Other retention of urine; I95.89 Other hypotension; K29.70 Gastritis, unspecified, without bleeding; M81.0 Age-related osteoporosis without current pathological fracture; E78.00 Pure hypercholesterolemia, unspecified; M06.9 Rheumatoid arthritis, unspecified; G89.29 Other chronic pain; M54.5 Low back pain; I10 Essential (primary) hypertension; I73.9 Peripheral vascular disease, unspecified; I25.2 Old myocardial infarction; F17.210 Nicotine dependence, cigarettes, uncomplicated; Z95.1 Presence of aortocoronary bypass graft; Z95.2 Presence of prosthetic heart valve; Z95.5 Presence of coronary angioplasty implant and graft; Z96.641 Presence of right artificial hip joint; Z74.01 Bed confinement status; Z79.4 Long term (current) use of insulin; Z87.01 Personal history of pneumonia (recurrent)